=== PATIENT | male | born 1940 | race Asian ===

== ENCOUNTER 2020-07-07 00:04 | Inpatient (IN) | payer MEDICARE, BC ==
[~2020-07-07] VITALS: Ht 167.6 cm; Wt 61.0 kg
[2020-07-07] VITALS (30 sets, daily range): BP systolic 68–145; BP diastolic 37–99
--- NOTE | 2020-07-07 00:10 | NUR ---
ED Nurse Note: Pt brought in by ambulance 60 from [facility] c/o fever of 100.3F and elevated WBC. changed into gown; attached to monitor. patient presents with spontaneous eye opening; lethargic. sinus tach on monitor. respirations shallow and tachypneic; 32 at 97% roomair. rectal temp 103.3F. all safety measures met.
--- NOTE | 2020-07-07 00:15 | NUR ---
ED Nurse Note: pt presents with left subclavian double lumen catheter. bal inserted per ermd. blood, initial lactic, blood culture, urine, covid mrsa cre vre swab collected; sent down to lab. ekg completed at bedside; sinus tach
[2020-07-07] MEDS ORDERED: Acetaminophen 650 MG SUPP RECTAL ONE ×2 (00:25→00:30)
--- NOTE | 2020-07-07 00:29 | Emergency Room Report ---
History of Present Illness General Chief Complaint: Fever Source: EMS, PMD Present Illness HPI Patient sent in for fever. Patient is altered and unable to answer questions. He has a catheter left chest. The patient is unable to give review of systems. Records sent from [facility] reviewed. Discussion with treating MD. H/O T cell lymphoma. Not started on chemo yet. ESRD DM Bladder cancer D/C from [facility] 2 days ago. Allergies: Coded Allergies: LATEX, NATURAL RUBBER (Verified Allergy, Unknown, 07/07/20) MITOMYCIN (Verified Allergy, Unknown, 07/07/20) Uncoded Allergies: MYTOMYCIN (Allergy, Unknown, 07/07/20) COVID-19 Screening Contact w/high risk pt: Yes Experienced COVID-19 symptoms?: Yes COVID-19 Testing performed SUPERVISOR UNLOADING: No Patient History Limited by: medical condition Past Medical History: see triage record, old chart reviewed - SNF papers and PMD Past Surgical History: other - Dialysis fistula right upper arm, chemotherapy catheter left chest Social History: Denies: smoking Social History Narrative [facility] Reviewed Nursing Documentation: PMH: Agreed; PSxH: Agreed Review of Systems All Other Systems: limited Physical Exam Vital Signs Date Time Temp Pulse Resp B/P (MAP) Pulse Ox O2 Delivery O2 Flow Rate FiO2 07/07/20 00:08 100.2 130 22 112/80 (91) 97 Room Air Sp02 EP Interpretation: reviewed, normal General Appearance: moderate distress, lethargic - not answering questions but moving all 4, other - skin hot, Chronically Ill Head: normocephalic, atraumatic Eyes: bilateral eye normal inspection, bilateral eye PERRL ENT: dry mucus membranes Neck: full range of motion, supple Respiratory: no respiratory distress, no retraction, crackles, rhonchi Cardiovascular #1: no edema, tachycardia, other Cardiovascular #2: 2+ radial (L) Gastrointestinal: non-distended, no rebound, guarding - minimal, tenderness - minimal reaction to exam, decreased bowel sounds, scaphoid Musculoskeletal: back normal, moves extm spontaneously Neurologic: DTRs symmetric, sensory intact, other - not answering Psychiatric: depressed affect Skin: no rash, other - febrile Procedures Critical Care Time Critical Care Time Total Critical Care Time: 60 min bedside evaluation and treatment excludes procedures (EKG). Reason for critical care: sepsis, leukopenia, NSTEMI, anemia, thrombocytopenia Possible complications: hypotension, hypertension, SC, shock, arrhythmias, metabolic acidosis, end organ damage, respiratory failure. Interventions: Sepsis resuscitation, broadened antibiotic coverage, reevaluation, discussion with lab, treatment of elevated troponin Course: Patient presents with fever and tachycardia. Sepsis resuscitation begun. In the face of renal failure judicious fluid replacement ordered. Broad-spectrum antibiotics ordered with identification of pulmonary source. Discussion with lab as CBC markedly abnormal. Type and Rh ordered. Repeat evaluation with hypotension which is mild. Repeat fluid bolus ordered. Repeat evaluation. Improvement in blood pressure and pulse. Discussion with admitting physician. Rediscussion with covering physician. Vital signs improved however patient prognosis poor due to comorbidities and bone marrow failure. Consultations: nursing staff, EMS, lab, PMD, admitting MDs, nursing supervisor unloading for reverse isolation Performed by: Dr. Ruiz Tolerated well condition = critical Medical Decision Making Diagnostic Impression: Primary Impression: Sepsis Qualified Codes: A41.9 - Sepsis, unspecified organism Additional Impressions: Leukopenia Qualified Codes: D72.819 - Decreased white blood cell count, unspecified Thrombocytopenia Anemia Qualified Codes: D64.9 - Anemia, unspecified Pneumonia Qualified Codes: J18.9 - Pneumonia, unspecified organism NSTEMI (non-ST elevated myocardial infarction) ESRD (end stage renal disease) on dialysis COVID-19 ruled out by laboratory testing Bilateral pleural effusion ER Course Patient presents with fever. Differential includes sepsis, pneumonia, COVID-19, UTI amongst others. Evaluation with EKG, chest x-ray and labs. Treatment with IV bolus and triple antibiotics ordered. Based on exam sounds like pulmonary source. Patient placed on a heat and frost insulator. As renal failure and BP good (though tachycardia), only 1 liter bolus to begin. EKG ST with strain incomplete RBBB. CXR infiltrate and possible effusions. Line present L. Discussion with lab regarding CBC (they had request redraw twice). I told them to result. WBC 100. Hgb 7.5. Plts = 32K. CMP with CRF. Lactate 1.7. + troponin called at 1:05. Aspirin ordered. This was done in the face of thrombocytopenia as possible cardiac protection outweighs risk of bleeding. Sepsis re-evaluation: Transient lower BP (96). Still tachycardic, but improved (122). Good cap fill. No resp distress and O2 sat good. Still not speaking but moving all 4. Add liter bolus (now 30 ml/kg). After bolus continuing 200 ml/hr. Tachycardia resolved and BP stable after fluids and antibiotics. Defervescing. Needs reverse isolation. Type and Rh ordered. Consideration if continued hypotension for transfusion and possibly platelet transfusion. Discussed with PMD who requests Dr. Coley. Discussed with Dr. Coley who states he is not medical authorization specialist but he will contact Dr. Mcclain. Discussed with Dr. Mcclain 6:20. (Patient on floor.) Laboratory Tests Test 07/07/20 00:15 07/07/20 00:30 07/07/20 01:15 Urine Color Pale yellow Urine Appearance Clear Urine pH 8 (4.5-8.0) Urine Specific [place] 1.010 (1.005-1.035) Urine Protein 3+ (NEGATIVE) H Urine Glucose (UA) 2+ (NEGATIVE) H Urine Ketones Negative (NEGATIVE) Urine Blood 1+ (NEGATIVE) H Urine Nitrite Negative (NEGATIVE) Urine Bilirubin Negative (NEGATIVE) Urine Urobilinogen Normal MG/DL (0.0-1.0) Urine Leukocyte Esterase Negative (NEGATIVE) Urine RBC 0-2 /HPF (0 - 0) H Urine WBC 0-2 /HPF (0 - 0) Urine Squamous Epithelial Cells Occasional /LPF Urine Bacteria Occasional /HPF (NONE) Urine Other Casts 0-2 /LPF (NONE) H Prothrombin Time 12.9 SEC (9.30-11.50) H Prothrombin Time INR 1.2 (0.9-1.1) H Activated Partial Thromboplast Time 35 SEC (23-33) H Sodium Level 135 MMOL/L (136-145) L Potassium Level 5.3 MMOL/L (3.5-5.1) H Chloride Level 98 MMOL/L (98-107) Carbon Dioxide Level 25 MMOL/L (21-32) Anion Gap 12 mmol/L (5-15) Blood Urea Nitrogen 103 mg/dL (7-18) H Creatinine 7.3 MG/DL (0.55-1.30) H Estimated Glomerular Filtration Rate 7.2 mL/min (>60) Glucose Level 81 MG/DL (74-106) Lactic Acid Level 1.70 mmol/L (0.4-2.0) Calcium Level 9.0 MG/DL (8.5-10.1) Magnesium Level 1.7 MG/DL (1.8-2.4) L Total Bilirubin 0.5 MG/DL (0.2-1.0) Aspartate Amino Transferase (AST) 27 U/L (15-37) Alanine Aminotransferase (ALT) 18 U/L (12-78) Alkaline Phosphatase 88 U/L (46-116) Total Creatine Kinase 12 U/L (26-308) L Troponin I 0.082 ng/mL (0.000-0.056) Pro-B-Type Natriuretic Peptide 76930 pg/mL (0-125) H Total Protein 5.4 G/DL (6.4-8.2) L Albumin 1.6 G/DL (3.4-5.0) L Globulin 3.8 g/dL Albumin/Globulin Ratio 0.4 (1.0-2.7) L Lipase 47 U/L (73-393) L White Blood Count 0.1 K/UL (4.8-10.8) *L Red Blood Count 2.95 M/UL (4.70-6.10) L Hemoglobin 7.5 G/DL (14.2-18.0) L Hematocrit 22.5 % (42.0-52.0) L Mean Corpuscular Volume 76 FL (80-99) L Mean Corpuscular Hemoglobin 25.4 PG (27.0-31.0) L Mean Corpuscular Hemoglobin Concent 33.3 G/DL (32.0-36.0) Red Cell Distribution Width 16.4 % (11.6-14.8) H Platelet Count 32 K/UL (150-450) L Mean Platelet Volume 10.7 FL (6.5-10.1) H Neutrophils (%) (Auto) % (45.0-75.0) Lymphocytes (%) (Auto) % (20.0-45.0) Monocytes (%) (Auto) % (1.0-10.0) Eosinophils (%) (Auto) % (0.0-3.0) Basophils (%) (Auto) % (0.0-2.0) CBC Comment See comment Microbiology Date/Time Source Procedure Growth Status 07/07/20 00:15 Nasopharynx SARS-CoV-2 RdRp Gene Assay - Final Complete EKG Diagnostic Results Rate: tachycardiac Rhythm: NSR ST Segments: no acute changes - incomplete RBBB, no STEMI Rhythm Strip Diag. Results Rhythm: no PVC's, no ectopy, other - Tachycardia 134 Chest X-Ray Diagnostic Results Chest X-Ray Diagnostic Results : Chest X-Ray Ordered: Yes # of Views/Limited/Complete: 1 View Indication: Other EP Interpretation: Yes Interpretation: no pneumothorax, other - L infiltrate, effusions, Line L, cardiomegally Impression: Other Electronically Signed by: Electronically signed by Andrea Ruiz MD Last Vital Signs Date Time Temp Pulse Resp B/P (MAP) Pulse Ox O2 Delivery O2 Flow Rate FiO2 07/07/20 02:47 98.7 117 30 127/46 95 Room Air Status: improved Disposition: ADMITTED INPATIENT - reverse isolation Condition: Critical Andrea Ruiz MD Jul 07, 2020 00:29
[2020-07-07] MEDS ORDERED: cefTRIAXone 1 GM in NS 55 ML IVPB ONE (00:30)
[2020-07-07] MEDS ORDERED: Vancomycin 1 GM in NS 275 ML IVPB ONE (00:30)
[2020-07-07] MEDS ORDERED: Azithromycin 500 MG in NS 275 ML IV ONE (00:30)
[2020-07-07 00:39] LABS: APPEARANCE,URINE CLEAR; BILIRUBIN, URINE NEGATIVE (NEGATIVE); COLOR,URINE PALE YELLOW; GLUCOSE, URINE (UA) 2+ (NEGATIVE); KETONES,URINE NEGATIVE (NEGATIVE); LEUKOCYTE ESTERASE ,URINE NEGATIVE (NEGATIVE); NITRITE,URINE NEGATIVE (NEGATIVE); PH,URINE 8 (4.5-8.0); PROTEIN,URINE 3+ (NEGATIVE); UROBILINOGEN,URINE NORMAL MG/DL (0.0-1.0)
[2020-07-07 00:51] LABS: ANION GAP 12 mmol/L (5-15); BLOOD UREA NITROGEN 103 mg/dL (7-18); CARBON DIOXIDE 25 MMOL/L (21-32); CHLORIDE 98 MMOL/L (98-107); CREATININE 7.3 MG/DL (0.55-1.30); POTASSIUM 5.3 MMOL/L (3.5-5.1); SODIUM 135 MMOL/L (136-145)
[2020-07-07 01:01] LABS: ALANINE AMINOTRANSFERASE 18 U/L (12-78); ALBUMIN 1.6 G/DL (3.4-5.0); ALBUMIN/GLOBULIN RATIO 0.4 (1.0-2.7); ALKALINE PHOSPHATASE 88 U/L (46-116); ASPARTATE AMINO TRANSFERASE 27 U/L (15-37); BILIRUBIN,TOTAL 0.5 MG/DL (0.2-1.0); CREATINE KINASE 12 U/L (26-308)
[2020-07-07 01:15] LABS: INR 1.2 (0.9-1.1)
--- NOTE | 2020-07-07 01:15 | NUR ---
ED Nurse Note: repeat cbc drawn; sent down to lab.
[2020-07-07 01:31] LABS: HEMATOCRIT 22.5 % (42.0-52.0); HEMOGLOBIN 7.5 G/DL (14.2-18.0); MEAN CORPUSCULAR VOLUME 76 FL (80-99); PLATELET COUNT 32 K/UL (150-450); RED BLOOD COUNT 2.95 M/UL (4.70-6.10); RED CELL DISTRIBUTION WIDTH 16.4 % (11.6-14.8)
[2020-07-07 01:35] LABS: WHITE BLOOD COUNT 0.1 K/UL (4.8-10.8)
[2020-07-07] MEDS ORDERED: Sodium Chloride 1,900 ML IVLG ONE (02:00)
[2020-07-07] MEDS ORDERED: ACYCLOVIR200 MG ORAL (02:45)
[2020-07-07] MEDS ORDERED: ALLOPURINOL100 M1 ORAL (02:49)
[2020-07-07] MEDS ORDERED: ASPIRIN81 MG ORAL (02:49)
[2020-07-07] MEDS ORDERED: AMLODIPINE BESYL5 MG ORAL (02:49)
[2020-07-07] MEDS ORDERED: MULTIVITAMIN-Z1 EACH PO (02:51)
[2020-07-07] MEDS ORDERED: CALCIUM ACETAT667 M1 PO (02:51)
[2020-07-07] MEDS ORDERED: PROCRIT3000 UNIT/ SUBQ (02:54)
[2020-07-07] MEDS ORDERED: GABAPENTIN100 MG ORAL (02:54)
[2020-07-07] MEDS ORDERED: [UNRECOGNIZED DRUG - OTHER] PO (02:54)
[2020-07-07] MEDS ORDERED: LOSARTAN POTASS50 MG ORAL (02:54)
[2020-07-07] MEDS ORDERED: LIDODERM700 M1 TOPIC (02:54)
[2020-07-07] MEDS ORDERED: NEUPOGEN300 MCG/1 SQ (02:57)
[2020-07-07] MEDS ORDERED: MIRTAZAPINE15 M3 ORAL (02:57)
[2020-07-07] MEDS ORDERED: COLACE100 MG ORAL (03:00)
[2020-07-07] MEDS ORDERED: SENNA8.6 M2 PO (03:00)
[2020-07-07] MEDS ORDERED: ACETAMINOPHEN325 M1 ORAL (03:02)
[2020-07-07] MEDS ORDERED: ROBAXIN-500MG ORAL (03:02)
[2020-07-07] MEDS ORDERED: MELATONIN3 MG ORAL (03:02)
[2020-07-07] MEDS ORDERED: POLYETHYLENE GL17 GM ORAL (03:03)
--- NOTE | 2020-07-07 03:40 | NUR ---
TRANSFER TO FLOOR: Patient transferred to tele 219 as ordered, per radha sweet. Report given to eze reece. patient stable for transport. transferred to unit via gurney with rn and rigoberto. belongings list and admission packet sent with patient.
--- NOTE | 2020-07-07 04:00 | NUR ---
NURSE NOTES: Received report from Torin Alfonso RN. Pt not in stable condition, MD called, awaiting call back
--- NOTE | 2020-07-07 06:00 | NUR ---
TRANSFER TO FLOOR: Patient transferred to ICU, per ANIYAH. Report given to Silvina Navarro RN. No Belongings or medications. Pt in critical condition.
[2020-07-07] MEDS ORDERED: Acetaminophen 500mg (ES) tab ORAL PRN (07:00)
[2020-07-07] MEDS ORDERED: Sennosides 8.6mg tab ORAL PRN (07:00)
[2020-07-07] MEDS ORDERED: oxyCODONE 5mg IR tab ORAL PRN (07:00)
[2020-07-07] MEDS ORDERED: NS 250 ML IVPB ONE (07:45)
[2020-07-07] MEDS ORDERED: Piperacillin/Tazobactam 3.375 GM in NS 110 ML IVPB SCH (09:00)
[2020-07-07] MEDS ORDERED: TBO-Filgrastim 300 mcg/0.5ml SQ SCH (09:00)
[2020-07-07] MEDS: Allopurinol 100mg Tab ORAL SCH (09:00)
[2020-07-07] MEDS: Acyclovir 200mg Cap ORAL SCH (09:00)
[2020-07-07] MEDS: Vitamin B Complex Tab ORAL SCH (09:00)
[2020-07-07] MEDS ORDERED: Aspirin EC 81mg tab ORAL SCH (09:00)
[2020-07-07] MEDS: Norepinephrine 4mg/NS Premix 250 ML IV SCH ×3 (09:30→22:34)
--- NOTE | 2020-07-07 09:30 | NUR ---
NURSE NOTES: late entry: palliative senior np cheryl here to see pt.informed of wbc 0.1L, plt 32. on r.a sating 93%. sbp low, 270ml bolus given. pt iv access subclavian. ok to use for now order. may need replacement. lungs diminished. loc x0, pt moans, will not open eyes. jaundiced. will administer granix subcut.
--- NOTE | 2020-07-07 09:50 | NUR ---
NURSE NOTES: LATE ENTRY: CALLED MD. MURRAY. REGARDING PT SBP POST 270ML BOLUS REMAINS AT 85/37, INCREASED FROM 53, HR 103-115. SATING 94%, BPM 20-23. PT VERY LETHARGIC, WILL NOT OPEN EYES, NO PO MEDS CAN BE GIVEN. RECOMMENDED PRESSORS, LABS, NGT, FLUIDS. RECEIVED ORDER FOR LEVOPHED, NGT INSERTION, STAT ABG. REPEAT BMP, CBC, LACTIC ACID.
--- NOTE | 2020-07-07 10:11 | History and Physical ---
Minor Giovanna BUTCHER SUPERVISOR 07/07/20 1011: History of Present Illness General Date patient seen: Jul 07, 2020 Time patient seen: 08:00 Reason for Hospitalization: Fever Present Illness HPI 80 years old male, resident of [facility], with PMH of ESRD, on HD, DM type 2, HTN, CHF with diastolic dysfunction hyperlipidemia , moderate aortic stenosis, recurrent left pleural effsuion, bladder cancer, T cell lymphoma, recently diagnosed, not on chemo yet , was sent for to ED for evaluation due to fever. Upon evaluation in ED patient was febrile , tachycardic, pulse oximetry was stable on room air Laboratory work-up revealed severe pancytopenia with WBC 0.1 , hemoglobin 7.5, platelet counts 32 . ABG on room air revealed hypoxia with O2 sat 88 % pH was 7.40, pCO2 31.8. Sodium 135 , potassium 5.3. Magnesium 1.7. BUN 102, creatinine 7.3, consistent with known history of ESRD. Rapid COVID 19 was negative. Urinalysis revealed no evidence of urinary tract infection. Troponin 0.082 , pro BNP [id number]. EKG revealed sinus tachycardia with incomplete right bundle branch block, no acute ischemic changes . Chest x-ray revealed left infiltrate, possible effusion, In emergency department septic work-up initiated ,patient pancultured ,received fluid bolus, empiric antibiotics adn ASA. Patient noted to be hypotensive and subsequently transferred to ICU for further management for possible pressor Allergies: Coded Allergies: LATEX, NATURAL RUBBER (Verified Allergy, Unknown, 07/07/20) MITOMYCIN (Verified Allergy, Unknown, 07/07/20) Uncoded Allergies: MYTOMYCIN (Allergy, Unknown, 07/07/20) COVID-19 Screening Contact w/high risk pt: Yes Experienced COVID-19 symptoms?: Yes Coronavirus symptoms experienc: Fever (T>100.4F or >38C) Medication History Scheduled Acyclovir* (Acyclovir*), 200 MG ORAL 3XW, (Reported) Allopurinol* (Allopurinol*), 100 MG ORAL DAILY, (Reported) Amlodipine Besylate* (Amlodipine Besylate*), 5 MG ORAL DAILY, (Reported) Aspirin* (Aspirin*), 81 MG ORAL DAILY, (Reported) Calcium Acetate (Calcium Acetate), 667 MG PO TID, (Reported) Docusate Sodium* (Colace*), 100 MG ORAL TWICE A DAY, (Reported) Epoetin Emery (Procrit), 3,000 UNIT SUBQ 3XW, (Reported) Gabapentin* (Gabapentin*), 100 MG ORAL THREE TIMES A DAY, (Reported) Lidocaine Patch* (Lidoderm Patch*), 1 PATCH TOPIC DAILY, (Reported) Losartan Potassium* (Losartan Potassium*), 100 MG ORAL DAILY, (Reported) Mirtazapine* (Mirtazapine*), 15 MG ORAL BEDTIME, (Reported) Nut.tx,Imp.digest,Soy,Lact-Red (Pronourish), 237 ML PO BID, (Reported) Polyethylene Glycol 3350* (Polyethylene Glycol 3350*), 17 GM ORAL DAILY, (Reported) Scheduled PRN Acetaminophen* (Acetaminophen 325MG Tablet*), 500 MG ORAL Q4H PRN for For Pain, (Reported) Melatonin (Melatonin), 3 MG ORAL BEDTIME PRN for Insomnia, (Reported) Methocarbamol* (Robaxin-500*), 500 MG ORAL QID PRN for For Pain, (Reported) Miscellaneous Medications B Complx/C/Folic/Zinc/Cup Manning/E (Zvrilljznlbn-Ehwq-Whosaf Tab), 1 EACH PO, (Reported) Filgrastim (Neupogen), 300 MCG IJ, (Reported) Sennosides (Senna), 8.6 MG PO, (Reported) Patient History Healthcare decision maker Resuscitation status Full code Advanced Directive on File Review of Systems ROS Narrative unable to obtain due to patient's mental status Physical Exam General Appearance: no apparent distress, lethargic Lines, tubes and drains: other - R chest dial catheter HEENT: normocephalic, atraumatic, anicteric Neck: non-tender, supple Respiratory/Chest: no accessory muscle use, decreased breath sounds Cardiovascular/Chest: tachycardia - ST with BBB Abdomen: normal bowel sounds, non tender, soft Extremities: normal capillary refill Neurologic: abnormal gait, other - lethargic moves all extremities Musculoskeletal: atrophy - BLE Last 24 Hour Vital Signs Date Time Temp Pulse Resp B/P (MAP) Pulse Ox O2 Delivery O2 Flow Rate FiO2 07/07/20 04:00 150 07/07/20 03:40 98.7 112 25 105/41 97 Room Air 07/07/20 03:30 98.7 112 25 105/41 97 Room Air 07/07/20 02:47 98.7 117 30 127/46 95 Room Air 07/07/20 02:00 98.7 130 32 127/99 94 Room Air 07/07/20 01:23 98.7 07/07/20 01:00 103.3 128 27 145/70 98 Room Air 07/07/20 00:15 130 22 Room Air 07/07/20 00:15 103.3 135 26 96/52 98 Room Air 07/07/20 00:08 100.2 130 22 112/80 (91) 97 Room Air Laboratory Tests Test 07/07/20 00:15 07/07/20 00:30 07/07/20 01:15 07/07/20 09:31 Urine Color Pale yellow Urine Appearance Clear Urine pH 8 (4.5-8.0) Urine Specific [place] 1.010 (1.005-1.035) Urine Protein 3+ (NEGATIVE) H Urine Glucose (UA) 2+ (NEGATIVE) H Urine Ketones Negative (NEGATIVE) Urine Blood 1+ (NEGATIVE) H Urine Nitrite Negative (NEGATIVE) Urine Bilirubin Negative (NEGATIVE) Urine Urobilinogen Normal MG/DL (0.0-1.0) Urine Leukocyte Esterase Negative (NEGATIVE) Urine RBC 0-2 /HPF (0 - 0) H Urine WBC 0-2 /HPF (0 - 0) Urine Squamous Epithelial Cells Occasional /LPF Urine Bacteria Occasional /HPF (NONE) Urine Other Casts 0-2 /LPF (NONE) H Prothrombin Time 12.9 SEC (9.30-11.50) H Prothromb Time International Ratio 1.2 (0.9-1.1) H Activated Partial Thromboplast Time 35 SEC (23-33) H Sodium Level 135 MMOL/L (136-145) L Potassium Level 5.3 MMOL/L (3.5-5.1) H Chloride Level 98 MMOL/L (98-107) Carbon Dioxide Level 25 MMOL/L (21-32) Anion Gap 12 mmol/L (5-15) Blood Urea Nitrogen 103 mg/dL (7-18) H Creatinine 7.3 MG/DL (0.55-1.30) H Estimat Glomerular Filtration Rate 7.2 mL/min (>60) Glucose Level 81 MG/DL (74-106) Lactic Acid Level 1.70 mmol/L (0.4-2.0) Calcium Level 9.0 MG/DL (8.5-10.1) Magnesium Level 1.7 MG/DL (1.8-2.4) L Total Bilirubin 0.5 MG/DL (0.2-1.0) Aspartate Amino Transf (AST/SGOT) 27 U/L (15-37) Alanine Aminotransferase (ALT/SGPT) 18 U/L (12-78) Alkaline Phosphatase 88 U/L (46-116) Total Creatine Kinase 12 U/L (26-308) L Troponin I 0.082 ng/mL (0.000-0.056) Pro-B-Type Natriuretic Peptide 51092 pg/mL (0-125) H Total Protein 5.4 G/DL (6.4-8.2) L Albumin 1.6 G/DL (3.4-5.0) L Globulin 3.8 g/dL Albumin/Globulin Ratio 0.4 (1.0-2.7) L Lipase 47 U/L (73-393) L White Blood Count 0.1 K/UL (4.8-10.8) *L Red Blood Count 2.95 M/UL (4.70-6.10) L Hemoglobin 7.5 G/DL (14.2-18.0) L Hematocrit 22.5 % (42.0-52.0) L Mean Corpuscular Volume 76 FL (80-99) L Mean Corpuscular Hemoglobin 25.4 PG (27.0-31.0) L Mean Corpuscular Hemoglobin Concent 33.3 G/DL (32.0-36.0) Red Cell Distribution Width 16.4 % (11.6-14.8) H Platelet Count 32 K/UL (150-450) L Mean Platelet Volume 10.7 FL (6.5-10.1) H Neutrophils (%) (Auto) % (45.0-75.0) Lymphocytes (%) (Auto) % (20.0-45.0) Monocytes (%) (Auto) % (1.0-10.0) Eosinophils (%) (Auto) % (0.0-3.0) Basophils (%) (Auto) % (0.0-2.0) CBC Comment See comment Arterial Blood pH 7.402 (7.350-7.450) Arterial Blood Partial Pressure CO2 31.8 mmHg (35.0-45.0) L Arterial Blood Partial Pressure O2 58.4 mmHg (75.0-100.0) L Arterial Blood HCO3 19.3 mmol/L (22.0-26.0) L Arterial Blood Oxygen Saturation 88.7 % (95-100) *L Arterial Blood Base Excess -4.9 (-2-2) L Javier Test Positive Microbiology Date/Time Source Procedure Growth Status 07/07/20 00:15 Nasopharynx SARS-CoV-2 RdRp Gene Assay - Final Complete Height (Feet): 5 Height (Inches): 6.00 Weight (Pounds): 140 Medications Current Medications Medications (Trade) Dose Ordered Sig/Maxi Route PRN Reason Start Time Stop Time Status Last Admin Dose Admin Acetaminophen (Tylenol) 500 mg Q4H PRN ORAL Mild Pain (1-3)/ Temp 100.4 07/07/20 07:00 08/06/20 06:59 Acyclovir (Zovirax) 200 mg TuThSa ORAL 07/07/20 09:00 08/06/20 08:59 Allopurinol (Zyloprim) 100 mg DAILY ORAL 07/07/20 09:00 08/06/20 08:59 Aspirin (Ecotrin) 81 mg DAILY ORAL 07/07/20 09:00 08/21/20 08:59 Atorvastatin Calcium (Lipitor) 10 mg BEDTIME ORAL 07/07/20 21:00 10/05/20 20:59 Calcium Acetate (Phoslo) 1,334 mg TIAC ORAL 07/07/20 11:30 10/05/20 11:29 Epoetin Emery (Epoetin Emery(ESRD on dialysis)) 6,000 unit THU-THU-THU SUBQ 07/09/20 21:00 10/07/20 20:59 Gabapentin (Neurontin) 100 mg QHS ORAL 07/07/20 21:00 08/06/20 20:59 Lidocaine (Lidoderm 5% PATCH) 1 patch DAILY TDERMAL 07/07/20 09:00 10/05/20 08:59 Mirtazapine (Remeron) 15 mg BEDTIME ORAL 07/07/20 21:00 10/05/20 20:59 Norepinephrine Bitartrate 250 ml @ 0 mls/hr Q24H IV 07/07/20 09:30 07/10/20 09:24 Oxycodone HCl (Roxicodone) 5 mg Q12H PRN ORAL pain (8-10) 07/07/20 07:00 07/14/20 06:59 Pantoprazole (Protonix) 40 mg EVERY 12 HOURS ORAL 07/07/20 09:00 08/06/20 08:59 Piperacillin Sod/ Tazobactam Sod 3.375 gm/Sodium Chloride 110 ml @ 27.5 mls/hr Q12HR IVPB 07/07/20 09:00 07/14/20 08:59 07/07/20 09:01 Sennosides (Senokot) 8.6 mg DAILY PRN ORAL Constipation 07/07/20 07:00 08/06/20 06:59 Tbo-Filgrastim (Granix) 300 mcg ONCE SQ 07/07/20 09:00 07/07/20 12:00 07/07/20 08:45 Vancomycin HCl (Vanco pharmacy to dose) 1 ea DAILY PRN MISC Per rx protocol 07/07/20 07:00 08/06/20 06:59 Vitamin B Complex (Vitamin B Complex) 1 tab DAILY ORAL 07/07/20 09:00 10/05/20 08:59 Assessment/Plan Assessment/Plan: ASSESSMENT sepsis with shock PNA Neutropenic fever Acute toxic metabolic encephalopathy Elevated troponin Severe pancytopenia T cell lymphoma ESRD, on HD DM Hx of HTN Recurrent left pleural effusion Diastolic CHF Moderate aortic stenosis HLD PLAN OF CARE ICU closely monitor hemodynamic status, attempt BP control with fluid boluses Levophed on standby to start to keep mean arterial BP> 65 no peripheral line, will use HD cath and surgeon contacted to place a CL broad spectrum abx, fup with cx ID consult pending serial troponin, ECG cardio eval O2 titrate to keep sat above 92% fup with CXR Neupogen stat monitor counts, heme eval HD as per nephro with close monitoring of volumes and renal parameters Venous Duplex BLE SCD if NGT plan to transfer to [facility] for a higher level of care when stable for transfer case discussed and evaluated by supervising physician Dannie Mcclain MD 07/07/20 1349: History of Present Illness General Reason for Hospitalization: Fever Present Illness Allergies: Coded Allergies: LATEX, NATURAL RUBBER (Verified Allergy, Unknown, 07/07/20) MITOMYCIN (Verified Allergy, Unknown, 07/07/20) Uncoded Allergies: MYTOMYCIN (Allergy, Unknown, 07/07/20) Medication History Scheduled Acyclovir* (Acyclovir*), 200 MG ORAL 3XW, (Reported) Allopurinol* (Allopurinol*), 100 MG ORAL DAILY, (Reported) Amlodipine Besylate* (Amlodipine Besylate*), 5 MG ORAL DAILY, (Reported) Aspirin* (Aspirin*), 81 MG ORAL DAILY, (Reported) Calcium Acetate (Calcium Acetate), 667 MG PO TID, (Reported) Docusate Sodium* (Colace*), 100 MG ORAL TWICE A DAY, (Reported) Epoetin Emery (Procrit), 3,000 UNIT SUBQ 3XW, (Reported) Gabapentin* (Gabapentin*), 100 MG ORAL THREE TIMES A DAY, (Reported) Lidocaine Patch* (Lidoderm Patch*), 1 PATCH TOPIC DAILY, (Reported) Losartan Potassium* (Losartan Potassium*), 100 MG ORAL DAILY, (Reported) Mirtazapine* (Mirtazapine*), 15 MG ORAL BEDTIME, (Reported) Nut.tx,Imp.digest,Soy,Lact-Red (Pronourish), 237 ML PO BID, (Reported) Polyethylene Glycol 3350* (Polyethylene Glycol 3350*), 17 GM ORAL DAILY, (Reported) Scheduled PRN Acetaminophen* (Acetaminophen 325MG Tablet*), 500 MG ORAL Q4H PRN for For Pain, (Reported) Melatonin (Melatonin), 3 MG ORAL BEDTIME PRN for Insomnia, (Reported) Methocarbamol* (Robaxin-500*), 500 MG ORAL QID PRN for For Pain, (Reported) Miscellaneous Medications B Complx/C/Folic/Zinc/Cup Manning/E (Deezwkjjgxzk-Fyha-Unfvsd Tab), 1 EACH PO, (Reported) Filgrastim (Neupogen), 300 MCG IJ, (Reported) Sennosides (Senna), 8.6 MG PO, (Reported) Assessment/Plan Assessment/Plan: Patient seen and examined with BUTCHER SUPERVISOR and the above formulated assessment and plan. Briefly, this is an 80 y/o male w/ ESRD on HD, bladder CA s/p BCG, DM2, HTN, HL, latent TB, recurrent pleural effusions with recent diagnosis of T cell lymphoma with recent hospitalization for left loculated effusion c/b left hemothorax s/p VATS decortication. Underwent [facility] 06/29 and discharged to SNF from [facility] 07/05. Plan was to continue Filgastrim to 07/07 but will continue for now until Heme/ onc f/u He is on pressors in the ICU with gentle fluid additionally HD planned per renal PRBC and platelet transfusion BS normally well controlled, monitor He is very altered Will look into transfer to [facility] where he gets his care. CC time 100 min Giovanna Minor NP Jul 07, 2020 10:11 Dannie Mcclain MD Jul 07, 2020 13:49
--- NOTE | 2020-07-07 10:15 | NUR ---
NURSE NOTES: MD. MONTOYA HERE TO SEE PT. WAS INFORMED FISTULA ON RT UPPER ARM, FAINT THRILL, BRUIT PRESENT. PT ADMITTED WITH LT SUBCLAVIAN, ORDER TO USE FOR NOW. K 5.3, BUN/CRE 103/7.3.MG 1.7. PT RECEIVED BOLUS N.S, LEVO ON STANDBY, SBP NOW 140'S, HR 122. MD WILL PLACE ORDER FOR H.D TODAY.
--- NOTE | 2020-07-07 10:23 | Consultation ---
Consult Note Consult Note I am asked to evaluate the patient at the request of Dr. Mcclain for dialysis management Patient seen in room B ICU Discussed with ANKUSH Fonseca Patient transferred to ICU because of low blood pressure Discussed with nurse practitioner Giovanna Minor Old record at [facility] reviewed 80 years old male, resident of [facility], with PMH of ESRD, on HD, DM type 2, HTN, hyperlipidemia thyroid disease , moderate AV stenosis, left renal ang iomyolipoma, T cell lymphoma, recently diagnosed, not on chemo yet , respiratory failure due to pleural effusion and left hemothorax, was sent for to ED for evaluation due to fever. Upon evaluation in ED patient was febrile , tachycardic, pulse oximetry was stable on room air Laboratory work-up revealed severe pancytopenia with WBC 0.1 , hemoglobin 7.5, platelet counts 32 . ABG on room air revealed hypoxia with O2 sat 88 % pH was 7.40, pCO2 31.8. Sodium 135 , potassium 5.3. Magnesium 1.7. BUN 102, creatinine 7.3, consistent with known history of ESRD. Rapid COVID 19 was negative. Urinalysis revealed no evidence of urinary tract infection. Troponin 0.082 , pro BNP [id number]. EKG revealed sinus tachycardia with incomplete right bundle branch block, no acute ischemic changes . Chest x-ray revealed left infiltrate, possible effusion, In emergency department septic work-up initiated ,patient pancultured ,received fluid bolus, empiric antibiotics adn ASA. Patient noted to be hypotensive and subsequently transferred to ICU for further management for possible pressor Allergies: Coded Allergies: LATEX, NATURAL RUBBER (Verified Allergy, Unknown, 07/07/20) MITOMYCIN (Verified Allergy, Unknown, 07/07/20) Uncoded Allergies: MYTOMYCIN (Allergy, Unknown, 07/07/20) COVID-19 Screening Contact w/high risk pt: Yes Experienced COVID-19 symptoms?: Yes Coronavirus symptoms experienc: Fever (T>100.4F or >38C) Patient examined Patient has a dialysis fistula over the right arm Patient has a line in left upper chest for chemo treatment General Appearance: no apparent distress, lethargic Lines, tubes and drains: other - R chest catheter HEENT: normocephalic, atraumatic, anicteric Neck: non-tender, supple Respiratory/Chest: no accessory muscle use, decreased breath sounds Cardiovascular/Chest: tachycardia - ST with BBB Abdomen: normal bowel sounds, non tender, soft Extremities: normal capillary refill Neurologic: abnormal gait, other - lethargic moves all extremities Musculoskeletal: atrophy - BLE . Assessment/Plan Imp: End-stage renal disease on hemodialysis Thursday and Saturdays Presents with hypotension, sepsis, pancytopenia Has evidence of pneumonia Non-ST elevation DC History of lymphoma and recurrent left pleural effusion LVH diastolic CHF moderate aortic stenosis and hypertension Secondary hyperparathyroidism hypocalcemia Nfk-gqeijoc-eckirkdam diabetes mellitus Hyperlipemia History of recurrent bladder cancer Protein calorie malnutrition Hyperuricemia Plan: Dialysis to correct electrolyte abnormalities and uremic symptoms Hem Onc, ID, pulmonary follow-up Monitor renal parameters, electrolytes, uric acid Monitor blood sugar while n.p.o. Per orders I spent an additional 36 minutes on review of medical records of the patient at [facility] EMR , including prior hospital records,consult notes, progress notes, procedures ,imaging labs, hemodynamics, and other clinical documentation. Over 35 min Rome Jiang MD Jul 07, 2020 10:23
--- NOTE | 2020-07-07 10:37 | NUR ---
NURSE NOTES: called DAIJA gordon at [phone], spoke with call rep Carter. order for heidi [id number]. today. will inform heidi mercadon
[2020-07-07 11:35] LABS: HEMATOCRIT 23.7 % (42.0-52.0); HEMOGLOBIN 7.6 G/DL (14.2-18.0); MEAN CORPUSCULAR VOLUME 82 FL (80-99); PLATELET COUNT 15 K/UL (150-450); RED BLOOD COUNT 2.91 M/UL (4.70-6.10); RED CELL DISTRIBUTION WIDTH 19.2 % (11.6-14.8); WHITE BLOOD COUNT 1.1 K/UL (4.8-10.8)
[2020-07-07 11:47] LABS: BLOOD UREA NITROGEN 108 mg/dL (7-18); CALCIUM 7.9 MG/DL (8.5-10.1); CARBON DIOXIDE 22 MMOL/L (21-32); CHLORIDE 103 MMOL/L (98-107); CREATININE 7.8 MG/DL (0.55-1.30); POTASSIUM 5.6 MMOL/L (3.5-5.1); SODIUM 138 MMOL/L (136-145)
--- NOTE | 2020-07-07 12:22 | NUR ---
RD ASSESSMENT & RECOMMENDATIONS SEE CARE ACTIVITY FOR COMPLETE ASSESSMENT DAILY ESTIMATED NEEDS: Needs based on ESRD + HD, CA/ 54.5kg 30-35 kcals/kg 4175-9236 total kcals 1.2-1.8 g protein/kg 65-98 g total protein Fluids per MD NUTRITION DIAGNOSIS: * Swallowing difficulty R/T dysphagia, lethargy as evidenced by w/ an order for NGT insertion, NPO at this time. 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) CURRENT DIET:NPO PO DIET RECOMMENDATIONS: WHEN SAFE FOR ORAL DIET -> RENAL/texture per SOFTWARE DEVELOPMENT ADVISOR ENTERAL NUTRITION RECOMMENDATIONS: W/ hemodynamic stability: Nepro @ 40ml/hr x 24 hrs to provide 960ml, 1728kcal, 78g prot, 698ml free water * FEED W/ HEMODYNAMIC STABILITY -> initiate Nepro @ 10ml/hr x 6hrs, advance 10ml q 4-6 hrs as tolerated to goal rate -> HOB over 30 degrees/ water flush per MD WITHOUT HEMODYNAMIC STABILITY, if able to keep HOB >30 degrees, rec trophic feeding of Nepro @ 5-10ml/hr ADDITIONAL RECOMMENDATIONS: * Per SNF: HT=62" AP=[id number] (06/29/20), daily calibrated bedscale wt * Monitor hemodynamic stability: "Levo on standby" at this time * Monitor lytes (K 5.3), check phos * TF rec as above when medically appropriate to feed and not safe for PO
--- NOTE | 2020-07-07 12:42 | NUR ---
NURSE NOTES: called Md Colindres and left message regarding sudden increase in pt hr to 150's. sbp 117, Levophed held at this time. pt responsive, lethargic baseline. ax temp 99.9, cooling measures in place. bedside ekg obtained vent rate>150. awaiting call back.
--- NOTE | 2020-07-07 13:12 | Consultation ---
History of Present Illness General Date patient seen: Jul 07, 2020 Reason for Hospitalization: Fever Present Illness HPI 80 year old male multiple medical comorbidities including ESRD on HD right arm fistula, bladder ca, lymphoma on chemo left chest wall catheter presented with fevers. admitted for care and management. surgery called to evaluate and assist with care. consideration of removal of chest wall catheter and eval of fistula. in ICU on support. labs noted. awake and responsive but unable to participate in exam or give history. EMR reviewed. case discussed with medical teams. Allergies: Coded Allergies: LATEX, NATURAL RUBBER (Verified Allergy, Unknown, 07/07/20) MITOMYCIN (Verified Allergy, Unknown, 07/07/20) Uncoded Allergies: MYTOMYCIN (Allergy, Unknown, 07/07/20) COVID-19 Screening Contact w/high risk pt: Yes Experienced COVID-19 symptoms?: Yes Coronavirus symptoms experienc: Fever (T>100.4F or >38C) Medication History Scheduled Acyclovir* (Acyclovir*), 200 MG ORAL 3XW, (Reported) Allopurinol* (Allopurinol*), 100 MG ORAL DAILY, (Reported) Amlodipine Besylate* (Amlodipine Besylate*), 5 MG ORAL DAILY, (Reported) Aspirin* (Aspirin*), 81 MG ORAL DAILY, (Reported) Calcium Acetate (Calcium Acetate), 667 MG PO TID, (Reported) Docusate Sodium* (Colace*), 100 MG ORAL TWICE A DAY, (Reported) Epoetin Emery (Procrit), 3,000 UNIT SUBQ 3XW, (Reported) Gabapentin* (Gabapentin*), 100 MG ORAL THREE TIMES A DAY, (Reported) Lidocaine Patch* (Lidoderm Patch*), 1 PATCH TOPIC DAILY, (Reported) Losartan Potassium* (Losartan Potassium*), 100 MG ORAL DAILY, (Reported) Mirtazapine* (Mirtazapine*), 15 MG ORAL BEDTIME, (Reported) Nut.tx,Imp.digest,Soy,Lact-Red (Pronourish), 237 ML PO BID, (Reported) Polyethylene Glycol 3350* (Polyethylene Glycol 3350*), 17 GM ORAL DAILY, (Reported) Scheduled PRN Acetaminophen* (Acetaminophen 325MG Tablet*), 500 MG ORAL Q4H PRN for For Pain, (Reported) Melatonin (Melatonin), 3 MG ORAL BEDTIME PRN for Insomnia, (Reported) Methocarbamol* (Robaxin-500*), 500 MG ORAL QID PRN for For Pain, (Reported) Miscellaneous Medications B Complx/C/Folic/Zinc/Cup Manning/E (Lrcbfnnyixhl-Uuxf-Ywqyll Tab), 1 EACH PO, (Reported) Filgrastim (Neupogen), 300 MCG IJ, (Reported) Sennosides (Senna), 8.6 MG PO, (Reported) Patient History Limited by: medical condition History Provided By: Medical Record, PMD Healthcare decision maker Resuscitation status Advanced Directive on File Past Medical/Surgical History Past Medical/Surgical History: (1) Anemia (2) Leukopenia (3) Thrombocytopenia (4) Sepsis (5) Pneumonia (6) NSTEMI (non-ST elevated myocardial infarction) (7) ESRD (end stage renal disease) on dialysis (8) COVID-19 ruled out by laboratory testing (9) Shock (10) Elevated troponin Review of Systems Review of Symptoms General ROS: no weight loss or fever Psychological ROS: no depression or mood changes, no memory loss Ophthalmic ROS: no visual changes or eye irritation ENT ROS: no nasal congestion, hearing loss, dizziness Allergy and Immunology ROS: no allergic symptoms or urticaria Hematological and Lymphatic ROS: no swollen glands, unusual bleeding or bruising Endocrine ROS: no polyuria, polydipsia, weight changes, temperature intolerance Respiratory ROS: no cough, shortness of breath, or wheezing Cardiovascular ROS: no chest pain or dyspnea on exertion Gastrointestinal ROS: denies abdominal pain, bright red blood in stool. Musculoskeletal ROS: no myalgias or arthralgias Neurological ROS: no TIA or stroke symptoms Dermatological ROS: no new or changing skin lesions, rashes or pruritis limited given medical condition Physical Exam Physical Exam General appearance: alert, no distress, appears stated age Head: Normocephalic, without obvious abnormality, atraumatic Eyes: conjunctivae/corneas clear. PERRL, EOM's intact. Fundi benign Throat: Lips, mucosa, and tongue normal. Teeth and gums normal Neck: supple, symmetrical, trachea midline, no adenopathy, thyroid: not enlarged, symmetric, no tenderness/mass/nodules, no carotid bruit and no JVD Lungs: clear to auscultation bilaterally. left chest wall tunneled dual lumen catheter Heart: regular rate and rhythm, S1, S2 normal, no murmur, click, rub or gallop Abdomen: soft, non-tender. Bowel sounds normal. No masses, no organomegaly Extremities: extremities normal, atraumatic, no cyanosis or edema fistula okay and thrill noted Pulses: 2+ and symmetric Skin: Skin color, texture, turgor normal. No rashes or lesions Neurologic: Grossly normal Last 24 Hour Vital Signs Date Time Temp Pulse Resp B/P (MAP) Pulse Ox O2 Delivery O2 Flow Rate FiO2 07/07/20 04:00 150 07/07/20 03:40 98.7 112 25 105/41 97 Room Air 07/07/20 03:30 98.7 112 25 105/41 97 Room Air 07/07/20 02:47 98.7 117 30 127/46 95 Room Air 07/07/20 02:00 98.7 130 32 127/99 94 Room Air 07/07/20 01:23 98.7 07/07/20 01:00 103.3 128 27 145/70 98 Room Air 07/07/20 00:15 130 22 Room Air 07/07/20 00:15 103.3 135 26 96/52 98 Room Air 07/07/20 00:08 100.2 130 22 112/80 (91) 97 Room Air Laboratory Tests Test 07/07/20 00:15 07/07/20 00:30 07/07/20 01:15 07/07/20 09:31 Urine Color Pale yellow Urine Appearance Clear Urine pH 8 (4.5-8.0) Urine Specific [place] 1.010 (1.005-1.035) Urine Protein 3+ (NEGATIVE) H Urine Glucose (UA) 2+ (NEGATIVE) H Urine Ketones Negative (NEGATIVE) Urine Blood 1+ (NEGATIVE) H Urine Nitrite Negative (NEGATIVE) Urine Bilirubin Negative (NEGATIVE) Urine Urobilinogen Normal MG/DL (0.0-1.0) Urine Leukocyte Esterase Negative (NEGATIVE) Urine RBC 0-2 /HPF (0 - 0) H Urine WBC 0-2 /HPF (0 - 0) Urine Squamous Epithelial Cells Occasional /LPF Urine Bacteria Occasional /HPF (NONE) Urine Other Casts 0-2 /LPF (NONE) H Prothrombin Time 12.9 SEC (9.30-11.50) H Prothromb Time International Ratio 1.2 (0.9-1.1) H Activated Partial Thromboplast Time 35 SEC (23-33) H Sodium Level 135 MMOL/L (136-145) L Potassium Level 5.3 MMOL/L (3.5-5.1) H Chloride Level 98 MMOL/L (98-107) Carbon Dioxide Level 25 MMOL/L (21-32) Anion Gap 12 mmol/L (5-15) Blood Urea Nitrogen 103 mg/dL (7-18) H Creatinine 7.3 MG/DL (0.55-1.30) H Estimat Glomerular Filtration Rate 7.2 mL/min (>60) Glucose Level 81 MG/DL (74-106) Lactic Acid Level 1.70 mmol/L (0.4-2.0) Calcium Level 9.0 MG/DL (8.5-10.1) Magnesium Level 1.7 MG/DL (1.8-2.4) L Total Bilirubin 0.5 MG/DL (0.2-1.0) Aspartate Amino Transf (AST/SGOT) 27 U/L (15-37) Alanine Aminotransferase (ALT/SGPT) 18 U/L (12-78) Alkaline Phosphatase 88 U/L (46-116) Total Creatine Kinase 12 U/L (26-308) L Troponin I 0.082 ng/mL (0.000-0.056) Pro-B-Type Natriuretic Peptide 20874 pg/mL (0-125) H Total Protein 5.4 G/DL (6.4-8.2) L Albumin 1.6 G/DL (3.4-5.0) L Globulin 3.8 g/dL Albumin/Globulin Ratio 0.4 (1.0-2.7) L Lipase 47 U/L (73-393) L White Blood Count 0.1 K/UL (4.8-10.8) *L Red Blood Count 2.95 M/UL (4.70-6.10) L Hemoglobin 7.5 G/DL (14.2-18.0) L Hematocrit 22.5 % (42.0-52.0) L Mean Corpuscular Volume 76 FL (80-99) L Mean Corpuscular Hemoglobin 25.4 PG (27.0-31.0) L Mean Corpuscular Hemoglobin Concent 33.3 G/DL (32.0-36.0) Red Cell Distribution Width 16.4 % (11.6-14.8) H Platelet Count 32 K/UL (150-450) L Mean Platelet Volume 10.7 FL (6.5-10.1) H Neutrophils (%) (Auto) % (45.0-75.0) Lymphocytes (%) (Auto) % (20.0-45.0) Monocytes (%) (Auto) % (1.0-10.0) Eosinophils (%) (Auto) % (0.0-3.0) Basophils (%) (Auto) % (0.0-2.0) CBC Comment See comment Arterial Blood pH 7.402 (7.350-7.450) Arterial Blood Partial Pressure CO2 31.8 mmHg (35.0-45.0) L Arterial Blood Partial Pressure O2 58.4 mmHg (75.0-100.0) L Arterial Blood HCO3 19.3 mmol/L (22.0-26.0) L Arterial Blood Oxygen Saturation 88.7 % (95-100) *L Arterial Blood Base Excess -4.9 (-2-2) L Javier Test Positive Test 07/07/20 11:15 White Blood Count 1.1 K/UL (4.8-10.8) #*L Red Blood Count 2.91 M/UL (4.70-6.10) L Hemoglobin 7.6 G/DL (14.2-18.0) L Hematocrit 23.7 % (42.0-52.0) L Mean Corpuscular Volume 82 FL (80-99) Mean Corpuscular Hemoglobin 26.0 PG (27.0-31.0) L Mean Corpuscular Hemoglobin Concent 31.9 G/DL (32.0-36.0) L Red Cell Distribution Width 19.2 % (11.6-14.8) H Platelet Count 15 K/UL (150-450) #L Mean Platelet Volume 12.2 FL (6.5-10.1) H Neutrophils (%) (Auto) % (45.0-75.0) Lymphocytes (%) (Auto) % (20.0-45.0) Monocytes (%) (Auto) % (1.0-10.0) Eosinophils (%) (Auto) % (0.0-3.0) Basophils (%) (Auto) % (0.0-2.0) Differential Total Cells Counted 100 Neutrophils % (Manual) 60 % (45-75) Lymphocytes % (Manual) 33 % (20-45) Monocytes % (Manual) 5 % (1-10) Eosinophils % (Manual) 0 % (0-3) Basophils % (Manual) 0 % (0-2) Band Neutrophils 2 % (0-8) Platelet Estimate Decreased L Platelet Morphology Normal Hypochromasia 1+ Anisocytosis 2+ Sodium Level 138 MMOL/L (136-145) Potassium Level 5.6 MMOL/L (3.5-5.1) H Chloride Level 103 MMOL/L (98-107) Carbon Dioxide Level 22 MMOL/L (21-32) Blood Urea Nitrogen 108 mg/dL (7-18) H Creatinine 7.8 MG/DL (0.55-1.30) H Estimat Glomerular Filtration Rate 6.7 mL/min (>60) Glucose Level 64 MG/DL (74-106) L Lactic Acid Level 3.90 mmol/L (0.4-2.0) H Calcium Level 7.9 MG/DL (8.5-10.1) L Troponin I 0.119 ng/mL (0.000-0.056) Microbiology Date/Time Source Procedure Growth Status 07/07/20 00:15 Nasopharynx SARS-CoV-2 RdRp Gene Assay - Final Complete Height (Feet): 5 Height (Inches): 6.00 Weight (Pounds): 140 Medications Current Medications Medications (Trade) Dose Ordered Sig/Maxi Route PRN Reason Start Time Stop Time Status Last Admin Dose Admin Acetaminophen (Tylenol) 500 mg Q4H PRN ORAL Mild Pain (1-3)/ Temp 100.4 07/07/20 07:00 08/06/20 06:59 Acyclovir (Zovirax) 200 mg TuThSa ORAL 07/07/20 09:00 08/06/20 08:59 Allopurinol (Zyloprim) 100 mg DAILY ORAL 07/07/20 09:00 08/06/20 08:59 Aspirin (Ecotrin) 81 mg DAILY ORAL 07/07/20 09:00 08/21/20 08:59 Atorvastatin Calcium (Lipitor) 10 mg BEDTIME ORAL 07/07/20 21:00 10/05/20 20:59 Calcium Acetate (Phoslo) 1,334 mg TIAC ORAL 07/07/20 11:30 10/05/20 11:29 Epoetin Emery (Epoetin Emery(ESRD on dialysis)) 6,000 unit THU-THU-THU SUBQ 07/09/20 21:00 10/07/20 20:59 Gabapentin (Neurontin) 100 mg QHS ORAL 07/07/20 21:00 08/06/20 20:59 Lidocaine (Lidoderm 5% PATCH) 1 patch DAILY TDERMAL 07/07/20 09:00 10/05/20 08:59 Mirtazapine (Remeron) 15 mg BEDTIME ORAL 07/07/20 21:00 10/05/20 20:59 Norepinephrine Bitartrate 250 ml @ 0 mls/hr Q24H IV 07/07/20 09:30 07/10/20 09:24 Oxycodone HCl (Roxicodone) 5 mg Q12H PRN ORAL pain (8-10) 07/07/20 07:00 07/14/20 06:59 Pantoprazole (Protonix) 40 mg EVERY 12 HOURS ORAL 07/07/20 09:00 08/06/20 08:59 Piperacillin Sod/ Tazobactam Sod 3.375 gm/Sodium Chloride 110 ml @ 27.5 mls/hr Q12HR IVPB 07/07/20 09:00 07/14/20 08:59 07/07/20 09:01 Sennosides (Senokot) 8.6 mg DAILY PRN ORAL Constipation 07/07/20 07:00 08/06/20 06:59 Vancomycin HCl (Vanco pharmacy to dose) 1 ea DAILY PRN MISC Per rx protocol 07/07/20 07:00 08/06/20 06:59 Vitamin B Complex (Vitamin B Complex) 1 tab DAILY ORAL 07/07/20 09:00 10/05/20 08:59 Assessment/Plan Problem List: (1) Anemia ICD Codes: D64.9 - Anemia, unspecified SNOMED: 557256574, 985740885 Qualifiers: Qualified Codes: D64.9 - Anemia, unspecified (2) Leukopenia ICD Codes: D72.819 - Decreased white blood cell count, unspecified SNOMED: 80010137, 958546817 Qualifiers: Qualified Codes: D72.819 - Decreased white blood cell count, unspecified (3) Thrombocytopenia ICD Codes: D69.6 - Thrombocytopenia, unspecified SNOMED: 769307444, 909795934 (4) Sepsis Assessment & Plan: 80M in ICU leukopenia, lactic acidosis, fevers, thrombocytopenia, renal insufficiency, neutropenia. do not recommend left wall catheter removal at this time line does not seem infected and would await blood cultures and treat with abx high risk for bleeding from line removal and new placement fistula okay, HD as per renal no acute surgical intervention at this time will monitor closely and follow with exam cxr noted abx as per ID heme input trend labs diet DAILY ESTIMATED NEEDS: Needs based on ESRD + HD, CA/ 54.5kg 30-35 kcals/kg 8970-3483 total kcals 1.2-1.8 g protein/kg 65-98 g total protein Fluids per MD NUTRITION DIAGNOSIS: * Swallowing difficulty R/T dysphagia, lethargy as evidenced by w/ an order for NGT insertion, NPO at this time. 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) CURRENT DIET:NPO PO DIET RECOMMENDATIONS: WHEN SAFE FOR ORAL DIET -> RENAL/texture per CANDLE MAKING SUPERVISOR ENTERAL NUTRITION RECOMMENDATIONS: W/ hemodynamic stability: Nepro @ 40ml/hr x 24 hrs to provide 960ml, 1728kcal, 78g prot, 698ml free water * FEED W/ HEMODYNAMIC STABILITY -> initiate Nepro @ 10ml/hr x 6hrs, advance 10ml q 4-6 hrs as tolerated to goal rate -> HOB over 30 degrees/ water flush per MD WITHOUT HEMODYNAMIC STABILITY, if able to keep HOB >30 degrees, rec trophic feeding of Nepro @ 5-10ml/hr ADDITIONAL RECOMMENDATIONS: * Per SNF: HT=62" ID=[id number] (06/29/20), daily calibrated bedscale wt * Monitor hemodynamic stability: "Levo on standby" at this time * Monitor lytes (K 5.3), check phos * TF rec as above when medically appropriate to feed and not safe for PO ICD Codes: A41.9 - Sepsis, unspecified organism SNOMED: 63402051, 232416770 Qualifiers: Qualified Codes: A41.9 - Sepsis, unspecified organism (5) Pneumonia ICD Codes: J18.9 - Pneumonia, unspecified organism SNOMED: 824546212, 314787042 Qualifiers: (6) NSTEMI (non-ST elevated myocardial infarction) ICD Codes: I21.4 - Non-ST elevation (NSTEMI) myocardial infarction SNOMED: 00164634, 367155741 (7) ESRD (end stage renal disease) on dialysis ICD Codes: N18.6 - End stage renal disease; Z99.2 - Dependence on renal dialysis SNOMED: 472849230, 309653785 (8) COVID-19 ruled out by laboratory testing ICD Codes: Z03.818 - Encounter for observation for suspected exposure to other biological agents ruled out SNOMED: 674482927, 840310737 (9) Shock ICD Codes: R57.9 - Shock, unspecified SNOMED: 58293557 (10) Elevated troponin ICD Codes: R77.8 - Other specified abnormalities of plasma proteins SNOMED: 063346664, 380762282, 487300521 Maurice Durán Jul 07, 2020 13:12
--- NOTE | 2020-07-07 13:56 | Infectious Diseases Prog Note ---
Assessment/Plan Assessment/Plan Full consult dictated: A) 1) neutropenia, sepsis, fevers 2) pancytopenia 3) esrd, hd, t-cell lymphoma, bladder ca, , effusion, dm, htn P) 1) meropenem, vancomycin, diflucan 2) check cultures, labs and chest x-ray 3) d/w Dr. Mcclain 4) thank you Subjective Allergies: Coded Allergies: LATEX, NATURAL RUBBER (Verified Allergy, Unknown, 07/07/20) MITOMYCIN (Verified Allergy, Unknown, 07/07/20) Uncoded Allergies: MYTOMYCIN (Allergy, Unknown, 07/07/20) Objective Last 24 Hour Vital Signs Date Time Temp Pulse Resp B/P (MAP) Pulse Ox O2 Delivery O2 Flow Rate FiO2 07/07/20 04:00 150 07/07/20 03:40 98.7 112 25 105/41 97 Room Air 07/07/20 03:30 98.7 112 25 105/41 97 Room Air 07/07/20 02:47 98.7 117 30 127/46 95 Room Air 07/07/20 02:00 98.7 130 32 127/99 94 Room Air 07/07/20 01:23 98.7 07/07/20 01:00 103.3 128 27 145/70 98 Room Air 07/07/20 00:15 130 22 Room Air 07/07/20 00:15 103.3 135 26 96/52 98 Room Air 07/07/20 00:08 100.2 130 22 112/80 (91) 97 Room Air Height (Feet): 5 Height (Inches): 6.00 Weight (Pounds): 140 Microbiology Date/Time Source Procedure Growth Status 07/07/20 00:15 Nasopharynx SARS-CoV-2 RdRp Gene Assay - Final Complete Laboratory Tests Test 07/07/20 00:15 07/07/20 00:30 07/07/20 01:15 07/07/20 09:31 Urine Color Pale yellow Urine Appearance Clear Urine pH 8 (4.5-8.0) Urine Specific [place] 1.010 (1.005-1.035) Urine Protein 3+ (NEGATIVE) H Urine Glucose (UA) 2+ (NEGATIVE) H Urine Ketones Negative (NEGATIVE) Urine Blood 1+ (NEGATIVE) H Urine Nitrite Negative (NEGATIVE) Urine Bilirubin Negative (NEGATIVE) Urine Urobilinogen Normal MG/DL (0.0-1.0) Urine Leukocyte Esterase Negative (NEGATIVE) Urine RBC 0-2 /HPF (0 - 0) H Urine WBC 0-2 /HPF (0 - 0) Urine Squamous Epithelial Cells Occasional /LPF Urine Bacteria Occasional /HPF (NONE) Urine Other Casts 0-2 /LPF (NONE) H Prothrombin Time 12.9 SEC (9.30-11.50) H Prothromb Time International Ratio 1.2 (0.9-1.1) H Activated Partial Thromboplast Time 35 SEC (23-33) H Sodium Level 135 MMOL/L (136-145) L Potassium Level 5.3 MMOL/L (3.5-5.1) H Chloride Level 98 MMOL/L (98-107) Carbon Dioxide Level 25 MMOL/L (21-32) Anion Gap 12 mmol/L (5-15) Blood Urea Nitrogen 103 mg/dL (7-18) H Creatinine 7.3 MG/DL (0.55-1.30) H Estimat Glomerular Filtration Rate 7.2 mL/min (>60) Glucose Level 81 MG/DL (74-106) Lactic Acid Level 1.70 mmol/L (0.4-2.0) Calcium Level 9.0 MG/DL (8.5-10.1) Magnesium Level 1.7 MG/DL (1.8-2.4) L Total Bilirubin 0.5 MG/DL (0.2-1.0) Aspartate Amino Transf (AST/SGOT) 27 U/L (15-37) Alanine Aminotransferase (ALT/SGPT) 18 U/L (12-78) Alkaline Phosphatase 88 U/L (46-116) Total Creatine Kinase 12 U/L (26-308) L Troponin I 0.082 ng/mL (0.000-0.056) Pro-B-Type Natriuretic Peptide 90281 pg/mL (0-125) H Total Protein 5.4 G/DL (6.4-8.2) L Albumin 1.6 G/DL (3.4-5.0) L Globulin 3.8 g/dL Albumin/Globulin Ratio 0.4 (1.0-2.7) L Lipase 47 U/L (73-393) L White Blood Count 0.1 K/UL (4.8-10.8) *L Red Blood Count 2.95 M/UL (4.70-6.10) L Hemoglobin 7.5 G/DL (14.2-18.0) L Hematocrit 22.5 % (42.0-52.0) L Mean Corpuscular Volume 76 FL (80-99) L Mean Corpuscular Hemoglobin 25.4 PG (27.0-31.0) L Mean Corpuscular Hemoglobin Concent 33.3 G/DL (32.0-36.0) Red Cell Distribution Width 16.4 % (11.6-14.8) H Platelet Count 32 K/UL (150-450) L Mean Platelet Volume 10.7 FL (6.5-10.1) H Neutrophils (%) (Auto) % (45.0-75.0) Lymphocytes (%) (Auto) % (20.0-45.0) Monocytes (%) (Auto) % (1.0-10.0) Eosinophils (%) (Auto) % (0.0-3.0) Basophils (%) (Auto) % (0.0-2.0) CBC Comment See comment Arterial Blood pH 7.402 (7.350-7.450) Arterial Blood Partial Pressure CO2 31.8 mmHg (35.0-45.0) L Arterial Blood Partial Pressure O2 58.4 mmHg (75.0-100.0) L Arterial Blood HCO3 19.3 mmol/L (22.0-26.0) L Arterial Blood Oxygen Saturation 88.7 % (95-100) *L Arterial Blood Base Excess -4.9 (-2-2) L Javier Test Positive Test 07/07/20 11:15 07/07/20 11:18 White Blood Count 1.1 K/UL (4.8-10.8) #*L Red Blood Count 2.91 M/UL (4.70-6.10) L Hemoglobin 7.6 G/DL (14.2-18.0) L Hematocrit 23.7 % (42.0-52.0) L Mean Corpuscular Volume 82 FL (80-99) Mean Corpuscular Hemoglobin 26.0 PG (27.0-31.0) L Mean Corpuscular Hemoglobin Concent 31.9 G/DL (32.0-36.0) L Red Cell Distribution Width 19.2 % (11.6-14.8) H Platelet Count 15 K/UL (150-450) #L Mean Platelet Volume 12.2 FL (6.5-10.1) H Neutrophils (%) (Auto) % (45.0-75.0) Lymphocytes (%) (Auto) % (20.0-45.0) Monocytes (%) (Auto) % (1.0-10.0) Eosinophils (%) (Auto) % (0.0-3.0) Basophils (%) (Auto) % (0.0-2.0) Differential Total Cells Counted 100 Neutrophils % (Manual) 60 % (45-75) Lymphocytes % (Manual) 33 % (20-45) Monocytes % (Manual) 5 % (1-10) Eosinophils % (Manual) 0 % (0-3) Basophils % (Manual) 0 % (0-2) Band Neutrophils 2 % (0-8) Platelet Estimate Decreased L Platelet Morphology Normal Hypochromasia 1+ Anisocytosis 2+ Sodium Level 138 MMOL/L (136-145) Potassium Level 5.6 MMOL/L (3.5-5.1) H Chloride Level 103 MMOL/L (98-107) Carbon Dioxide Level 22 MMOL/L (21-32) Blood Urea Nitrogen 108 mg/dL (7-18) H Creatinine 7.8 MG/DL (0.55-1.30) H Estimat Glomerular Filtration Rate 6.7 mL/min (>60) Glucose Level 64 MG/DL (74-106) L Lactic Acid Level 3.90 mmol/L (0.4-2.0) H Calcium Level 7.9 MG/DL (8.5-10.1) L Troponin I 0.119 ng/mL (0.000-0.056) Hepatitis B Surface Antigen Pending Current Medications Medications (Trade) Dose Ordered Sig/Maxi Route PRN Reason Start Time Stop Time Status Last Admin Dose Admin Acetaminophen (Tylenol) 500 mg Q4H PRN ORAL Mild Pain (1-3)/ Temp 100.4 07/07/20 07:00 08/06/20 06:59 Acyclovir (Zovirax) 200 mg TuThSa ORAL 07/07/20 09:00 08/06/20 08:59 Allopurinol (Zyloprim) 100 mg DAILY ORAL 07/07/20 09:00 08/06/20 08:59 Aspirin (Ecotrin) 81 mg DAILY ORAL 07/07/20 09:00 08/21/20 08:59 Atorvastatin Calcium (Lipitor) 10 mg BEDTIME ORAL 07/07/20 21:00 10/05/20 20:59 Calcium Acetate (Phoslo) 1,334 mg TIAC ORAL 07/07/20 11:30 10/05/20 11:29 Epoetin Emery (Epoetin Emery(ESRD on dialysis)) 6,000 unit THU-THU-THU SUBQ 07/09/20 21:00 10/07/20 20:59 Gabapentin (Neurontin) 100 mg QHS ORAL 07/07/20 21:00 08/06/20 20:59 Lidocaine (Lidoderm 5% PATCH) 1 patch DAILY TDERMAL 07/07/20 09:00 10/05/20 08:59 Mirtazapine (Remeron) 15 mg BEDTIME ORAL 07/07/20 21:00 10/05/20 20:59 Norepinephrine Bitartrate 250 ml @ 0 mls/hr Q24H IV 07/07/20 09:30 07/10/20 09:24 Oxycodone HCl (Roxicodone) 5 mg Q12H PRN ORAL pain (8-10) 07/07/20 07:00 07/14/20 06:59 Pantoprazole (Protonix) 40 mg EVERY 12 HOURS ORAL 07/07/20 09:00 08/06/20 08:59 Sennosides (Senokot) 8.6 mg DAILY PRN ORAL Constipation 07/07/20 07:00 08/06/20 06:59 Vancomycin HCl (Vanco pharmacy to dose) 1 ea DAILY PRN MISC Per rx protocol 07/07/20 07:00 08/06/20 06:59 Vancomycin HCl (Vanco pharmacy to dose) 1 ea DAILY PRN MISC Per rx protocol 07/07/20 13:30 08/06/20 13:29 UNV Vitamin B Complex (Vitamin B Complex) 1 tab DAILY ORAL 07/07/20 09:00 10/05/20 08:59 Leyda Jensen MD Jul 07, 2020 13:56
--- NOTE | 2020-07-07 14:02 | NUR ---
CASE MANAGEMENT:INITIAL REVIEW 80 YR OLD MALE BIBA FROM [facility] CC;FEVER SI;SEPSIS. PNA. NSTEMI. COVID RULE OUT. T 103.3 P 135 R 32 BP 96/52 O2 97% ON RA WBC 0.1 H/H 7.5/22.5 PLT 32 NA 135 K+ 5.3 BUN 103 CR 7.3 MAG 1.7 BNP 62071 ALB 1.6 PT 12.9 INR 1.2 APTT 35 UA+ PROTEIN, GLUCOSE, BLOOD, RBC, OTHER CASTS COVID RAPID ~ NEGATIVE IS;IVF NS BOLUS TYLENOL RECTAL ROCEPHIN IV ZITHROMAX IV VANCOMYCIN IV ASA RECTAL ADMITTED TO ICU ICU STATUS DCP;FROM [facility]
--- NOTE | 2020-07-07 14:05 | NUR ---
NURSE NOTES: tech here to do 2 d echo.
--- NOTE | 2020-07-07 14:10 | NUR ---
DEBT COUNSELOR NOTE [place] [facility] [place] INFORM THAT PER PATIENTS PCP DR LILLY LAUREANO MD REQUESTS FOR PATIENT TO BE TRANSFERRED TO [facility] PENDING BED AVAILABILITY D/T PATIENT COMPLEX CONDITION. CLINICALS FAXED TO [facility] P: [phone] F: [phone]
--- NOTE | 2020-07-07 14:47 | NUR ---
NURSE NOTES: hanging 1/1 units PRBC's. vs 98.8 ax, 120, 93/67,98%, 29. pt lethargic, olurgic. 2 witness performed. will continue to monitor pt closely.
--- NOTE | 2020-07-07 15:00 | NUR ---
NURSE NOTES: late entry: 09/28 unit prbc. 97.4, 93/64, 122, 98%, 27. pt lethargic. opens eyes to name. moving extremities more. will continue to monitor.
[2020-07-07] MEDS ORDERED: Digoxin 0.5mg/2ml Inj IVP ONE (16:00)
--- NOTE | 2020-07-07 16:07 | NUR ---
KENO WRITER / RUNNER NOTE FOLLOW UP CALL MADE TO [facility] [phone]. S/W AYALA, CONFIRMED RECEIPT OF REFERRAL. CONFIRMED THAT DR DILL WILL FOLLOW PATIENT AT [facility]. INFORMED THAT TRANSFER IS CURRENTLY PENDING BED AVAILABILITY. ONCE BED IS AVAILABLE, TRANSFER CENTER WILL CONTACT ICU TO COORDINATE TRANSFER. LOREN DAVENPORT INFORMED
--- NOTE | 2020-07-07 16:42 | Cardiac Electrophysiology PN ---
Subjective Subjective [id number] Objective Last 24 Hour Vital Signs Date Time Temp Pulse Resp B/P (MAP) Pulse Ox O2 Delivery O2 Flow Rate FiO2 07/07/20 16:00 122 28 68/47 (54) 96 07/07/20 16:00 121 07/07/20 15:09 97.1 07/07/20 15:00 120 28 114/54 (74) 98 07/07/20 14:00 120 28 97/65 (76) 98 07/07/20 13:30 118 27 85/51 (62) 98 07/07/20 13:00 116 27 83/51 (62) 97 07/07/20 12:30 149 27 127/63 (84) 97 07/07/20 12:00 2.0 07/07/20 12:00 97.4 150 26 114/52 (72) 100 07/07/20 12:00 120 07/07/20 11:30 150 26 114/52 (72) 100 07/07/20 11:00 120 24 103/49 (67) 100 07/07/20 10:30 119 23 84/42 (56) 100 07/07/20 10:00 121 20 145/89 (107) 97 07/07/20 10:00 53/45 07/07/20 09:10 2.0 07/07/20 09:00 100 20 85/37 (53) 97 07/07/20 08:00 99.8 81 18 81/44 (56) 97 07/07/20 04:00 150 07/07/20 03:40 98.7 112 25 105/41 97 Room Air 07/07/20 03:30 98.7 112 25 105/41 97 Room Air 07/07/20 02:47 98.7 117 30 127/46 95 Room Air 07/07/20 02:00 98.7 130 32 127/99 94 Room Air 07/07/20 01:23 98.7 07/07/20 01:00 103.3 128 27 145/70 98 Room Air 07/07/20 00:15 130 22 Room Air 07/07/20 00:15 103.3 135 26 96/52 98 Room Air 07/07/20 00:08 100.2 130 22 112/80 (91) 97 Room Air Laboratory Tests Test 07/07/20 00:15 07/07/20 00:30 07/07/20 01:15 07/07/20 09:31 Urine Color Pale yellow Urine Appearance Clear Urine pH 8 (4.5-8.0) Urine Specific [place] 1.010 (1.005-1.035) Urine Protein 3+ (NEGATIVE) H Urine Glucose (UA) 2+ (NEGATIVE) H Urine Ketones Negative (NEGATIVE) Urine Blood 1+ (NEGATIVE) H Urine Nitrite Negative (NEGATIVE) Urine Bilirubin Negative (NEGATIVE) Urine Urobilinogen Normal MG/DL (0.0-1.0) Urine Leukocyte Esterase Negative (NEGATIVE) Urine RBC 0-2 /HPF (0 - 0) H Urine WBC 0-2 /HPF (0 - 0) Urine Squamous Epithelial Cells Occasional /LPF Urine Bacteria Occasional /HPF (NONE) Urine Other Casts 0-2 /LPF (NONE) H Prothrombin Time 12.9 SEC (9.30-11.50) H Prothromb Time International Ratio 1.2 (0.9-1.1) H Activated Partial Thromboplast Time 35 SEC (23-33) H Sodium Level 135 MMOL/L (136-145) L Potassium Level 5.3 MMOL/L (3.5-5.1) H Chloride Level 98 MMOL/L (98-107) Carbon Dioxide Level 25 MMOL/L (21-32) Anion Gap 12 mmol/L (5-15) Blood Urea Nitrogen 103 mg/dL (7-18) H Creatinine 7.3 MG/DL (0.55-1.30) H Estimat Glomerular Filtration Rate 7.2 mL/min (>60) Glucose Level 81 MG/DL (74-106) Lactic Acid Level 1.70 mmol/L (0.4-2.0) Calcium Level 9.0 MG/DL (8.5-10.1) Magnesium Level 1.7 MG/DL (1.8-2.4) L Total Bilirubin 0.5 MG/DL (0.2-1.0) Aspartate Amino Transf (AST/SGOT) 27 U/L (15-37) Alanine Aminotransferase (ALT/SGPT) 18 U/L (12-78) Alkaline Phosphatase 88 U/L (46-116) Total Creatine Kinase 12 U/L (26-308) L Troponin I 0.082 ng/mL (0.000-0.056) Pro-B-Type Natriuretic Peptide 95763 pg/mL (0-125) H Total Protein 5.4 G/DL (6.4-8.2) L Albumin 1.6 G/DL (3.4-5.0) L Globulin 3.8 g/dL Albumin/Globulin Ratio 0.4 (1.0-2.7) L Lipase 47 U/L (73-393) L White Blood Count 0.1 K/UL (4.8-10.8) *L Red Blood Count 2.95 M/UL (4.70-6.10) L Hemoglobin 7.5 G/DL (14.2-18.0) L Hematocrit 22.5 % (42.0-52.0) L Mean Corpuscular Volume 76 FL (80-99) L Mean Corpuscular Hemoglobin 25.4 PG (27.0-31.0) L Mean Corpuscular Hemoglobin Concent 33.3 G/DL (32.0-36.0) Red Cell Distribution Width 16.4 % (11.6-14.8) H Platelet Count 32 K/UL (150-450) L Mean Platelet Volume 10.7 FL (6.5-10.1) H Neutrophils (%) (Auto) % (45.0-75.0) Lymphocytes (%) (Auto) % (20.0-45.0) Monocytes (%) (Auto) % (1.0-10.0) Eosinophils (%) (Auto) % (0.0-3.0) Basophils (%) (Auto) % (0.0-2.0) CBC Comment See comment Arterial Blood pH 7.402 (7.350-7.450) Arterial Blood Partial Pressure CO2 31.8 mmHg (35.0-45.0) L Arterial Blood Partial Pressure O2 58.4 mmHg (75.0-100.0) L Arterial Blood HCO3 19.3 mmol/L (22.0-26.0) L Arterial Blood Oxygen Saturation 88.7 % (95-100) *L Arterial Blood Base Excess -4.9 (-2-2) L Javier Test Positive Test 07/07/20 11:15 07/07/20 11:18 07/07/20 14:30 White Blood Count 1.1 K/UL (4.8-10.8) #*L Red Blood Count 2.91 M/UL (4.70-6.10) L Hemoglobin 7.6 G/DL (14.2-18.0) L Hematocrit 23.7 % (42.0-52.0) L Mean Corpuscular Volume 82 FL (80-99) Mean Corpuscular Hemoglobin 26.0 PG (27.0-31.0) L Mean Corpuscular Hemoglobin Concent 31.9 G/DL (32.0-36.0) L Red Cell Distribution Width 19.2 % (11.6-14.8) H Platelet Count 15 K/UL (150-450) #L Mean Platelet Volume 12.2 FL (6.5-10.1) H Neutrophils (%) (Auto) % (45.0-75.0) Lymphocytes (%) (Auto) % (20.0-45.0) Monocytes (%) (Auto) % (1.0-10.0) Eosinophils (%) (Auto) % (0.0-3.0) Basophils (%) (Auto) % (0.0-2.0) Differential Total Cells Counted 100 Neutrophils % (Manual) 60 % (45-75) Lymphocytes % (Manual) 33 % (20-45) Monocytes % (Manual) 5 % (1-10) Eosinophils % (Manual) 0 % (0-3) Basophils % (Manual) 0 % (0-2) Band Neutrophils 2 % (0-8) Platelet Estimate Decreased L Platelet Morphology Normal Hypochromasia 1+ Anisocytosis 2+ Sodium Level 138 MMOL/L (136-145) Potassium Level 5.6 MMOL/L (3.5-5.1) H Chloride Level 103 MMOL/L (98-107) Carbon Dioxide Level 22 MMOL/L (21-32) Blood Urea Nitrogen 108 mg/dL (7-18) H Creatinine 7.8 MG/DL (0.55-1.30) H Estimat Glomerular Filtration Rate 6.7 mL/min (>60) Glucose Level 64 MG/DL (74-106) L Lactic Acid Level 3.90 mmol/L (0.4-2.0) H 3.70 mmol/L (0.66-2.22) H Calcium Level 7.9 MG/DL (8.5-10.1) L Troponin I 0.119 ng/mL (0.000-0.056) Hepatitis B Surface Antigen Pending Microbiology Date/Time Source Procedure Growth Status 07/07/20 00:15 Nasopharynx SARS-CoV-2 RdRp Gene Assay - Final Complete Fredi Colindres MD Jul 07, 2020 16:42
--- NOTE | 2020-07-07 17:45 | Consultation ---
DATE OF CONSULTATION: 07/07/2020 CARDIOLOGY CONSULTATION REFERRING PHYSICIAN: Chase Coley M.D. REASON FOR CONSULTATION: Management of hypotension and wide-complex tachycardia. HISTORY OF PRESENT ILLNESS: The patient is an 80-year-old gentleman with a history of hypertension, diabetes, and end-stage renal disease, on hemodialysis, as well as congestive heart failure with diastolic dysfunction and moderate to severe aortic stenosis and recurrent left pleural effusion and bladder cancer as well as T-cell lymphoma, who was sent to the emergency room for evaluation of fever from [facility]. The patient was noted to be tachycardic and pancytopenic with a white count of 0.1, hemoglobin 7.5, and platelet count of 32. The patient's rapid COVID-19 was negative. The patient's BNP was 28,000, and the EKG shows sinus tachycardia with right bundle-branch block. The patient was pancultured and transferred to intensive care unit and, in view of hypotension, started on Levophed. At the time of my evaluation, the patient is confused and not able to provide any meaningful information. REVIEW OF SYSTEMS: Negative other than what was mentioned in history of present illness. PAST MEDICAL HISTORY: As mentioned above. FAMILY HISTORY: Noncontributory. SOCIAL HISTORY: group home resident. PHYSICAL EXAMINATION: VITAL SIGNS: Blood pressure of 68/47, pulse is 120, respirations 18. HEAD AND NECK: No JVD. LUNGS: Decreased breath sounds. CARDIOVASCULAR: Regular S1 and S2 with no gallop or murmur, tachycardic. ABDOMEN: Soft. EXTREMITIES: 1+ pitting edema. LABORATORY AND DIAGNOSTIC DATA: His labs show white count was 0.1 and today is 1.1, hemoglobin 7.6, hematocrit 23.7, platelet count of only 15. Sodium is 138, potassium 5.6, BUN of 108, creatinine 7.8. Glucose of 64. Troponin 0.119 and 0.082. BNP 28,000. ASSESSMENT AND PLAN: 1. Troponin elevation. The levels are low and likely due to demand ischemia in this patient with severe anemia as well as hypotension. He is on Levophed. His echocardiogram also showed ejection fraction of 40% and severe aortic stenosis, aortic valve area of 0.6. 2. Hypotension, due to sepsis in this patient with leukopenia. The patient is on broad-spectrum IV antibiotic. 3. Pancytopenia. The patient is getting blood transfusion as well as platelet transfusion, likely due to chemotherapy. 4. Hyperlipidemia, on Lipitor. In view of the patient's thrombocytopenia, I will discontinue aspirin. 5. Severe aortic stenosis, aortic valve area of 0.6. 6. Congestive heart failure, ejection fraction only 40%. Thank you very much for allowing me to participate in the care of this patient. Please do not hesitate to contact me for any questions regarding my evaluation. Fredi Colindres M.D. DR: МАРИЯ JOB#: [id number] CC:
--- NOTE | 2020-07-07 19:40 | NUR ---
NURSE NOTES: Received report from ANKUSH Hammonds. Pt is resting on the bed and get hemodialysis. Pt is confused and sight agitated. Able to open the eyes spontaneously. On deployment specialist with ST and HR : 120-130's. OnO2 4L via nasal cannula ad SaO2 99-100% noted. On NPO. According to previous nurse, held insert NGT d/t low platelet and high risk of bleeding. no fever. Pt has Love cath and patent and drainage well. Pt has IV on Lt FA and no sign of infiltration noted. Pt has Lt. subclavian double lumen and dressing is clean and dry. On running with Levophed drip @ 6mcg/min. Pt has Rt. AV shunt for dialysis access. Placed fall precaution. Will continue to care plan.
[2020-07-07] MEDS: Dyna-Hex 2% Top Sol 2oz TOPIC SCH (20:28)
--- NOTE | 2020-07-07 20:30 | NUR ---
NURSE NOTES: Finished Hemodialysis and noted 600cc output. Will continue to care plan.
--- NOTE | 2020-07-07 22:00 | NUR ---
NURSE NOTES: Pt is resting on the bed. On registered nurse cardiac with ST. On running with Levophed drip 2 6mcg/min. Changed position. Will continue to monitor any change of condition.
--- NOTE | 2020-07-07 22:30 | NUR ---
NURSE NOTES: Get call from Dr. Mcclain and update Pt's condition. No new order noted. Will continue to monitor any change of condition.
[2020-07-08] VITALS (55 sets, daily range): BP systolic 65–128; BP diastolic 46–97
--- NOTE | 2020-07-08 | NUR ---
NURSE NOTES: Pt is resting on the bed and confused and agitated. Given realty orientation. On clinical research monitor with ST. No fever. Patent Foely cath. SaO2 99-100% with O2 4L via nasal cannula. No sign of active bleeding. On Levophed drip @ 6mcg/min. Turn and reposition. Will continue to monitor any change of condition.
--- NOTE | 2020-07-08 01:12 | NUR ---
NURSE NOTES: Get call from Janis who is [facility] staff. Updated Pt's condition. She said not available room today. Will continue to care plan.
--- NOTE | 2020-07-08 02:00 | NUR ---
NURSE NOTES: pt is sleeping on the bed and no sign of acute distress noted. BP 109/82mmHg with Levophed drip @ 6mcg/min. SaO2 100% with O2 4L via nasal cannula. Changed position. Placed fall precaution. Will continue to monitor.
--- NOTE | 2020-07-08 04:00 | NUR ---
NURSE NOTES: morning care was done. Give bed bath. Cleaned Pt and applied lotion and cream. Changed dressing on Lt. clavian double lumen. No sign of infiltration noted. SaO2 100% with O2 4L via nasal cannula. on grain manager with ST. No fever. noted BP : 119/78mmHg. Decrease Levophed drip @ 4mcg/min as titrate. changed position. Will continue to monitor any change of condition.
--- NOTE | 2020-07-08 06:00 | NUR ---
NURSE NOTES: Pt is resting on the bed and awake and confused. Noted BP: 106/65mmHg and HR: 116's. Decrease Levophed drip @ 2mcg/min. Will continue to monitor any change of condition.
[2020-07-08 06:11] LABS: HEMATOCRIT 23.6 % (42.0-52.0); HEMOGLOBIN 7.7 G/DL (14.2-18.0); MEAN CORPUSCULAR VOLUME 78 FL (80-99); PLATELET COUNT 14 K/UL (150-450); RED BLOOD COUNT 3.04 M/UL (4.70-6.10); RED CELL DISTRIBUTION WIDTH 17.2 % (11.6-14.8)
[2020-07-08 06:20] LABS: AMMONIA 14 umol/L (11-32)
[2020-07-08 06:23] LABS: % IRON SATURATION 16 % (15-50); IRON 14 ug/dL (50-175); TOTAL IRON BINDING CAPACITY 90 ug/dL (250-450)
[2020-07-08 06:30] LABS: GAMMA GLUTAMYL TRANSPEPTIDASE 62 U/L (5-85)
[2020-07-08 06:33] LABS: ALANINE AMINOTRANSFERASE 41 U/L (12-78); ALBUMIN 1.7 G/DL (3.4-5.0); ALBUMIN/GLOBULIN RATIO 0.4 (1.0-2.7); ALKALINE PHOSPHATASE 94 U/L (46-116); ANION GAP 15 mmol/L (5-15); ASPARTATE AMINO TRANSFERASE 65 U/L (15-37); BILIRUBIN,TOTAL 0.9 MG/DL (0.2-1.0); BLOOD UREA NITROGEN 72 mg/dL (7-18); CALCIUM 7.8 MG/DL (8.5-10.1); CARBON DIOXIDE 23 MMOL/L (21-32); CHLORIDE 100 MMOL/L (98-107); CHOLESTEROL 54 MG/DL (< 200); CREATININE 5.3 MG/DL (0.55-1.30); HDL CHOLESTEROL 15 MG/DL (40-60); SODIUM 138 MMOL/L (136-145); TRIGLYCERIDES 98 MG/DL (30-150)
--- NOTE | 2020-07-08 06:50 | NUR ---
NURSE NOTES: Noted BS 24mg/dl. Asymptomatic. Pt is awake but confused. Given D50w 50cc and rechecked BS: 145mmHg. Noted troponin level 0.074. Left message to Dr. Mcclain and awaiting call back. On front desk monitor with ST and HR 130-140's. Left message to Dr. Colindres for troponin level and awaiting call back.
[2020-07-08 06:55] LABS: FERRITIN > 2000 NG/ML (8-388)
--- NOTE | 2020-07-08 07:15 | NUR ---
NURSE HAND-OFF REPORT: Latest Vital Signs: Temperature 98.9 , Pulse 136 , B/P 128 /86 , Respiratory Rate 23 , O2 SAT 99 , Nasal Cannula, O2 Flow Rate 4.0 . EKG Rhythm: Sinus Tachycardia Rhythm change?: N Latest [place] Fall Score: 60 Fall Risk: High Risk Safety Measures: Call light Within Reach, Bed Alarm Zone 1, Side Rails Side Rails x3, Bed position Low and Locked. Fall Precautions: Yellow Socks Yellow Gown Door Sign Patient Fall Education Report given to ANKUSH Hammonds. Pt is resting on the bed and awake and confused. Didn't call back from Dr. Colindres and Dr. iraheta. Endorsed incoming nurse. Dr. Monroe visited and assessed Pt.
--- NOTE | 2020-07-08 07:33 | NUR ---
NURSE NOTES: RECEIVED REPORT FROM ANKUSH EAGLE. PT IN BED. FATIGUED, RESTLESS. PT CONFUSED. PT EDUCATED ON NOT REMOVING NC. LABORED BREATHING NOTED. SATING 90'S. NO COUGH. HOB>30. LUNG SOUNDS DIMINISHED. 4L NC. NOTED DRIED BLOOD IN ORAL CAVITY. ORAL CARE PROVIDED, MINIMAL IMPROVEMENT. PT NPO. NGT ON HOLD UNTIL INCREASED PLT LEVEL. ABDOMEN DISTENDED, ROUND. BOWEL SOUNDS HYPOACTIVE. PT HAD ONE BM, PT CLEANED, REPOSITIONED. OCCULT STOOL COLLECTED. BILATERAL RADIAL PULSES WEAK. RT AV GRAFT, LT SUBCLAVIAN FLUIDS LEVOPHED AT 2MCG/KG/MIN. D5 1/2 NS AT 30ML/HR. SKIN IN TACT. NO JVD. NEUTROPENIC PRECAUTIONS IN PLACE. CALL LIGHT IN REACH, BED ALARM ON. SIDE RAILS X2. WILL CONTINUE TO MONITOR PT.
--- NOTE | 2020-07-08 07:34 | Consultation ---
History of Present Illness General Chief Complaint: Fever Present Illness Allergies: Coded Allergies: LATEX, NATURAL RUBBER (Verified Allergy, Unknown, 07/07/20) MITOMYCIN (Verified Allergy, Unknown, 07/07/20) Uncoded Allergies: MYTOMYCIN (Allergy, Unknown, 07/07/20) Medication History Scheduled Acyclovir* (Acyclovir*), 200 MG ORAL 3XW, (Reported) Allopurinol* (Allopurinol*), 100 MG ORAL DAILY, (Reported) Amlodipine Besylate* (Amlodipine Besylate*), 5 MG ORAL DAILY, (Reported) Aspirin* (Aspirin*), 81 MG ORAL DAILY, (Reported) Calcium Acetate (Calcium Acetate), 667 MG PO TID, (Reported) Docusate Sodium* (Colace*), 100 MG ORAL TWICE A DAY, (Reported) Epoetin Emery (Procrit), 3,000 UNIT SUBQ 3XW, (Reported) Gabapentin* (Gabapentin*), 100 MG ORAL THREE TIMES A DAY, (Reported) Lidocaine Patch* (Lidoderm Patch*), 1 PATCH TOPIC DAILY, (Reported) Losartan Potassium* (Losartan Potassium*), 100 MG ORAL DAILY, (Reported) Mirtazapine* (Mirtazapine*), 15 MG ORAL BEDTIME, (Reported) Nut.tx,Imp.digest,Soy,Lact-Red (Pronourish), 237 ML PO BID, (Reported) Polyethylene Glycol 3350* (Polyethylene Glycol 3350*), 17 GM ORAL DAILY, (Reported) Scheduled PRN Acetaminophen* (Acetaminophen 325MG Tablet*), 500 MG ORAL Q4H PRN for For Pain, (Reported) Melatonin (Melatonin), 3 MG ORAL BEDTIME PRN for Insomnia, (Reported) Methocarbamol* (Robaxin-500*), 500 MG ORAL QID PRN for For Pain, (Reported) Miscellaneous Medications B Complx/C/Folic/Zinc/Cup Manning/E (Yocvunczmmdf-Kapj-Wbqaii Tab), 1 EACH PO, (Reported) Filgrastim (Neupogen), 300 MCG IJ, (Reported) Sennosides (Senna), 8.6 MG PO, (Reported) Patient History Healthcare decision maker Resuscitation status Advanced Directive on File Physical Exam Last 24 Hour Vital Signs Date Time Temp Pulse Resp B/P (MAP) Pulse Ox O2 Delivery O2 Flow Rate FiO2 07/08/20 07:00 136 23 128/86 (100) 99 07/08/20 06:30 139 20 98/65 (76) 100 07/08/20 06:00 116 22 106/65 (79) 100 07/08/20 05:30 116 21 100/65 (77) 99 07/08/20 05:00 140 20 105/69 (81) 100 07/08/20 04:30 143 25 111/74 (86) 99 07/08/20 04:00 Nasal Cannula 4.0 07/08/20 04:00 139 07/08/20 04:00 98.9 113 20 119/78 (92) 100 07/08/20 03:30 139 22 112/70 (84) 100 07/08/20 03:00 138 21 114/84 (94) 100 07/08/20 02:30 137 16 109/82 (91) 100 07/08/20 02:00 116 24 119/75 (90) 100 07/08/20 01:30 120 24 117/74 (88) 100 07/08/20 01:00 119 25 116/73 (87) 100 07/08/20 00:30 111 19 102/82 (89) 99 07/08/20 00:00 98.8 142 24 112/70 (84) 99 07/08/20 00:00 Nasal Cannula 4.0 07/08/20 00:00 143 07/07/20 23:30 143 26 125/87 (100) 100 07/07/20 23:00 126 29 115/75 (88) 100 07/07/20 22:34 111/75 07/07/20 22:30 117 22 94/60 (71) 100 07/07/20 22:00 137 24 98/69 (79) 100 07/07/20 21:30 142 25 107/80 (89) 100 07/07/20 21:00 139 21 103/73 (83) 100 07/07/20 20:30 139 25 105/72 (83) 100 07/07/20 20:00 126 07/07/20 20:00 98.5 140 20 107/75 (86) 100 07/07/20 20:00 Nasal Cannula 4.0 07/07/20 19:30 124 25 121/75 (90) 100 07/07/20 19:00 122 25 102/86 (91) 100 07/07/20 18:00 122 26 95/64 (74) 99 07/07/20 17:00 145 30 120/76 (91) 96 07/07/20 16:00 122 28 68/47 (54) 96 07/07/20 16:00 Nasal Cannula 4.0 07/07/20 16:00 121 07/07/20 15:09 97.1 07/07/20 15:00 120 28 114/54 (74) 98 07/07/20 14:00 120 28 97/65 (76) 98 07/07/20 13:30 118 27 85/51 (62) 98 07/07/20 13:00 116 27 83/51 (62) 97 07/07/20 12:30 149 27 127/63 (84) 97 07/07/20 12:00 2.0 07/07/20 12:00 97.4 150 26 114/52 (72) 100 07/07/20 12:00 120 07/07/20 12:00 Nasal Cannula 4.0 07/07/20 11:30 150 26 114/52 (72) 100 07/07/20 11:00 120 24 103/49 (67) 100 07/07/20 10:30 119 23 84/42 (56) 100 07/07/20 10:00 121 20 145/89 (107) 97 07/07/20 10:00 53/45 07/07/20 09:10 2.0 07/07/20 09:00 100 20 85/37 (53) 97 07/07/20 08:00 99.8 81 18 81/44 (56) 97 Intake and Output 07/07/20 07/08/20 19:00 07:00 Intake Total 1643.0 ml 189.75 ml Output Total 65 ml 40 ml Balance 1578.0 ml 149.75 ml Intake IV Total 1379.0 ml 189.75 ml Blood Product 264 ml Output Urine Total 65 ml 40 ml Laboratory Tests Test 07/07/20 09:31 07/07/20 11:15 07/07/20 11:18 07/07/20 14:30 Arterial Blood pH 7.402 (7.350-7.450) Arterial Blood Partial Pressure CO2 31.8 mmHg (35.0-45.0) L Arterial Blood Partial Pressure O2 58.4 mmHg (75.0-100.0) L Arterial Blood HCO3 19.3 mmol/L (22.0-26.0) L Arterial Blood Oxygen Saturation 88.7 % (95-100) *L Arterial Blood Base Excess -4.9 (-2-2) L Javier Test Positive White Blood Count 1.1 K/UL (4.8-10.8) #*L Red Blood Count 2.91 M/UL (4.70-6.10) L Hemoglobin 7.6 G/DL (14.2-18.0) L Hematocrit 23.7 % (42.0-52.0) L Mean Corpuscular Volume 82 FL (80-99) Mean Corpuscular Hemoglobin 26.0 PG (27.0-31.0) L Mean Corpuscular Hemoglobin Concent 31.9 G/DL (32.0-36.0) L Red Cell Distribution Width 19.2 % (11.6-14.8) H Platelet Count 15 K/UL (150-450) #L Mean Platelet Volume 12.2 FL (6.5-10.1) H Neutrophils (%) (Auto) % (45.0-75.0) Lymphocytes (%) (Auto) % (20.0-45.0) Monocytes (%) (Auto) % (1.0-10.0) Eosinophils (%) (Auto) % (0.0-3.0) Basophils (%) (Auto) % (0.0-2.0) Differential Total Cells Counted 100 Neutrophils % (Manual) 60 % (45-75) Lymphocytes % (Manual) 33 % (20-45) Monocytes % (Manual) 5 % (1-10) Eosinophils % (Manual) 0 % (0-3) Basophils % (Manual) 0 % (0-2) Band Neutrophils 2 % (0-8) Platelet Estimate Decreased L Platelet Morphology Normal Hypochromasia 1+ Anisocytosis 2+ Sodium Level 138 MMOL/L (136-145) Potassium Level 5.6 MMOL/L (3.5-5.1) H Chloride Level 103 MMOL/L (98-107) Carbon Dioxide Level 22 MMOL/L (21-32) Blood Urea Nitrogen 108 mg/dL (7-18) H Creatinine 7.8 MG/DL (0.55-1.30) H Estimat Glomerular Filtration Rate 6.7 mL/min (>60) Glucose Level 64 MG/DL (74-106) L Lactic Acid Level 3.90 mmol/L (0.4-2.0) H 3.70 mmol/L (0.66-2.22) H Calcium Level 7.9 MG/DL (8.5-10.1) L Troponin I 0.119 ng/mL (0.000-0.056) Hepatitis B Surface Antigen Pending Test 07/07/20 21:40 07/07/20 23:30 07/08/20 06:00 Lactic Acid Level 3.50 mmol/L (0.4-2.0) H 2.50 mmol/L (0.66-2.22) H 1.50 mmol/L (0.4-2.0) White Blood Count 4.6 K/UL (4.8-10.8) #L Red Blood Count 3.04 M/UL (4.70-6.10) L Hemoglobin 7.7 G/DL (14.2-18.0) L Hematocrit 23.6 % (42.0-52.0) L Mean Corpuscular Volume 78 FL (80-99) L Mean Corpuscular Hemoglobin 25.3 PG (27.0-31.0) L Mean Corpuscular Hemoglobin Concent 32.5 G/DL (32.0-36.0) Red Cell Distribution Width 17.2 % (11.6-14.8) H Platelet Count 14 K/UL (150-450) L Mean Platelet Volume 12.5 FL (6.5-10.1) H Neutrophils (%) (Auto) 37.3 % (45.0-75.0) L Lymphocytes (%) (Auto) 22.2 % (20.0-45.0) Monocytes (%) (Auto) 30.3 % (1.0-10.0) H Eosinophils (%) (Auto) 1.4 % (0.0-3.0) Basophils (%) (Auto) 8.7 % (0.0-2.0) H Neutrophils % (Manual) Pending Lymphocytes % (Manual) Pending Platelet Estimate Pending Platelet Morphology Pending Sodium Level 138 MMOL/L (136-145) Potassium Level 5.0 MMOL/L (3.5-5.1) Chloride Level 100 MMOL/L (98-107) Carbon Dioxide Level 23 MMOL/L (21-32) Anion Gap 15 mmol/L (5-15) Blood Urea Nitrogen 72 mg/dL (7-18) H Creatinine 5.3 MG/DL (0.55-1.30) H Estimat Glomerular Filtration Rate 10.5 mL/min (>60) Glucose Level 35 MG/DL (74-106) *L Uric Acid 3.2 MG/DL (2.6-7.2) Calcium Level 7.8 MG/DL (8.5-10.1) L Phosphorus Level 6.0 MG/DL (2.5-4.9) H Magnesium Level 2.0 MG/DL (1.8-2.4) Iron Level 14 ug/dL (50-175) L Total Iron Binding Capacity 90 ug/dL (250-450) L Percent Iron Saturation 16 % (15-50) Unsaturated Iron Binding 76 ug/dL (112-346) L Ferritin > 2000 NG/ML (8-388) H Total Bilirubin 0.9 MG/DL (0.2-1.0) Gamma Glutamyl Transpeptidase 62 U/L (5-85) Aspartate Amino Transf (AST/SGOT) 65 U/L (15-37) H Alanine Aminotransferase (ALT/SGPT) 41 U/L (12-78) Alkaline Phosphatase 94 U/L (46-116) Ammonia 14 umol/L (11-32) Troponin I 0.704 ng/mL (0.000-0.056) C-Reactive Protein, Quantitative 67.1 mg/dL (0.00-0.90) H Pro-B-Type Natriuretic Peptide > 93918 pg/mL (0-125) H Total Protein 5.5 G/DL (6.4-8.2) L Albumin 1.7 G/DL (3.4-5.0) L Globulin 3.8 g/dL Albumin/Globulin Ratio 0.4 (1.0-2.7) L Triglycerides Level 98 MG/DL (30-150) Cholesterol Level 54 MG/DL (< 200) LDL Cholesterol 5 mg/dL (<100) HDL Cholesterol 15 MG/DL (40-60) L Cholesterol/HDL Ratio 3.6 (3.3-4.4) Vitamin B12 Level Pending Folate Pending Thyroid Stimulating Hormone (TSH) 0.655 uiU/mL (0.358-3.740) Random Vancomycin Level Pending Height (Feet): 5 Height (Inches): 6.00 Weight (Pounds): 140 Medications Current Medications Medications (Trade) Dose Ordered Sig/Maxi Route PRN Reason Start Time Stop Time Status Last Admin Dose Admin Acetaminophen (Tylenol) 500 mg Q4H PRN ORAL Mild Pain (1-3)/ Temp 100.4 07/07/20 07:00 08/06/20 06:59 Acyclovir (Zovirax) 200 mg TuThSa ORAL 07/07/20 09:00 08/06/20 08:59 Allopurinol (Zyloprim) 100 mg DAILY ORAL 07/07/20 09:00 08/06/20 08:59 Atorvastatin Calcium (Lipitor) 10 mg BEDTIME ORAL 07/07/20 21:00 10/05/20 20:59 Calcium Acetate (Phoslo) 1,334 mg TIAC ORAL 07/07/20 11:30 10/05/20 11:29 Chlorhexidine Gluconate (Anne Marie-Hex 2%) 1 applic DAILY@2000 TOPIC 07/07/20 20:15 10/05/20 20:14 07/07/20 20:28 Epoetin Emery (Epoetin Emery(ESRD on dialysis)) 6,000 unit THU-THU-THU SUBQ 07/09/20 21:00 10/07/20 20:59 Fluconazole/ Sodium Chloride 100 ml @ 100 mls/hr Q24H IV 07/07/20 16:00 07/14/20 15:59 07/07/20 15:50 Gabapentin (Neurontin) 100 mg QHS ORAL 07/07/20 21:00 08/06/20 20:59 Lidocaine (Lidoderm 5% PATCH) 1 patch DAILY TDERMAL 07/07/20 09:00 10/05/20 08:59 Meropenem 500 mg/ Sodium Chloride 50 ml @ 100 mls/hr Q24HRS IVPB 07/07/20 15:00 07/12/20 14:59 07/07/20 15:50 Mirtazapine (Remeron) 15 mg BEDTIME ORAL 07/07/20 21:00 1/8/21 20:59 Norepinephrine Bitartrate 250 ml @ 0 mls/hr Q24H IV 07/07/20 09:30 07/10/20 09:24 07/07/20 22:34 Oxycodone HCl (Roxicodone) 5 mg Q12H PRN ORAL pain (8-10) 07/07/20 07:00 07/14/20 06:59 Pantoprazole (Protonix) 40 mg EVERY 12 HOURS ORAL 07/07/20 09:00 08/06/20 08:59 Sennosides (Senokot) 8.6 mg DAILY PRN ORAL Constipation 07/07/20 07:00 08/06/20 06:59 Vancomycin HCl (Vanco pharmacy to dose) 1 ea DAILY PRN MISC Per rx protocol 07/07/20 07:00 08/06/20 06:59 Vancomycin HCl (Vanco pharmacy to dose) 1 ea DAILY PRN MISC Per rx protocol 07/07/20 13:30 08/06/20 13:29 Vitamin B Complex (Vitamin B Complex) 1 tab DAILY ORAL 07/07/20 09:00 10/05/20 08:59 Assessment/Plan Assessment/Plan: Hematology Consultation REQ MD: Brijesh and Edmar Mcclain RFC: Ongoing thrombocytopenia, coagulopathy DOS: 07/08/20 HPI 80 years old male, resident of [facility], with PMH of ESRD, on HD, DM type 2, HTN, CHF with diastolic dysfunction hyperlipidemia , moderate aortic stenosis, recurrent left pleural effsuion, bladder cancer, T cell lymphoma, recently diagnosed, not on chemo yet, was sent for to ED for evaluation due to fever. Upon evaluation in ED patient was febrile , tachycardic, pulse oximetry was stable on room air Laboratory work-up revealed severe pancytopenia with WBC 0.1 , hemoglobin 7.5, platelet counts 32 . Chest x-ray revealed left infiltrate, possible effusion, In emergency department septic work-up initiated ,patient pancultured ,received fluid bolus, empiric antibiotics adn ASA. Patient noted to be hypotensive and subsequently transferred to ICU for further management for possible pressor Potential transfer to [facility] shortly with available bed Allergies: LATEX, NATURAL RUBBER (Verified Allergy, Unknown, 07/07/20) MITOMYCIN (Verified Allergy, Unknown, 07/07/20) Uncoded Allergies: MYTOMYCIN (Allergy, Unknown, 07/07/20) COVID-19 Screening Contact w/high risk pt: Yes Experienced COVID-19 symptoms?: Yes Coronavirus symptoms experienc: Fever (T>100.4F or >38C) Medication History Scheduled Acyclovir* (Acyclovir*), 200 MG ORAL 3XW, (Reported) Allopurinol* (Allopurinol*), 100 MG ORAL DAILY, (Reported) Amlodipine Besylate* (Amlodipine Besylate*), 5 MG ORAL DAILY, (Reported) Aspirin* (Aspirin*), 81 MG ORAL DAILY, (Reported) Calcium Acetate (Calcium Acetate), 667 MG PO TID, (Reported) Docusate Sodium* (Colace*), 100 MG ORAL TWICE A DAY, (Reported) Epoetin Emery (Procrit), 3,000 UNIT SUBQ 3XW, (Reported) Gabapentin* (Gabapentin*), 100 MG ORAL THREE TIMES A DAY, (Reported) Lidocaine Patch* (Lidoderm Patch*), 1 PATCH TOPIC DAILY, (Reported) Losartan Potassium* (Losartan Potassium*), 100 MG ORAL DAILY, (Reported) Mirtazapine* (Mirtazapine*), 15 MG ORAL BEDTIME, (Reported) Nut.tx,Imp.digest,Soy,Lact-Red (Pronourish), 237 ML PO BID, (Reported) Polyethylene Glycol 3350* (Polyethylene Glycol 3350*), 17 GM ORAL DAILY, (Reported) Acetaminophen* (Acetaminophen 325MG Tablet*), 500 MG ORAL Q4H PRN for For Pain, (Reported) Melatonin (Melatonin), 3 MG ORAL BEDTIME PRN for Insomnia, (Reported) Methocarbamol* (Robaxin-500*), 500 MG ORAL QID PRN for For Pain, (Reported) Miscellaneous Medications B Complx/C/Folic/Zinc/Cup Manning/E (Wzuycrgmrfsm-Vkwg-Lzzkgr Tab), 1 EACH PO, (Reported) Filgrastim (Neupogen), 300 MCG IJ, (Reported) Sennosides (Senna), 8.6 MG PO, (Reported) Resuscitation status Full code Advanced Directive on File Review of Systems ROS Narrative Physical Exam General Appearance: no apparent distress, lethargic Lines, tubes and drains: other - R chest dial catheter HEENT: normocephalic, atraumatic, anicteric Neck: non-tender, supple Respiratory/Chest: no accessory muscle use Cardiovascular/Chest: tachycardia - ST with BBB Abdomen: normal bowel sounds, non tender, soft Extremities: normal capillary refill Neurologic: abnormal gait, other - lethargic moves all extremities Musculoskeletal: atrophy - BLE Labs: labs reviewed Imaging: reviewed ASSESSMENT/RECS # T cell lymphoma -- recently diagnosed, though patient confused and difficult to obtain further hx from him, also with sepsis with shock --> no recent chemo but requires to initiate shortly as is aggressive lymphoma --> recommend transfer to [facility] for chemo/care to [facility] # Pancytopenia with Neutropenic fever requires chemo and also with sepsis, PNA --> neupogen prn as long as ANC>1000 is goal --> neupogen was given 07/07 --> wbc 0.1-->1.1-->4.6 --> hgb 7.5-->7.7 --> plt 32-->15-->14 --> transfuse as needed --> obtain records of Tcell Lymphoma from [facility] --> EPO started # PNA with Acute toxic metabolic encephalopathy --> likely related to infection --> ABX elda/vanc # Elevated troponin -> per cards eval # T cell lymphoma # ESRD, on HD # DM # Hx of HTN # Recurrent left pleural effusion # Diastolic CHF # Moderate aortic stenosis # HLD # Dvt ppx scds # Dispo transfer to [facility] for hloc given new lymphoma Appreciate consultation and dw Aung Oates MD Jul 08, 2020 07:34
[2020-07-08] MEDS ORDERED: D5 1/2NS 1,000 ML IV SCH (08:15)
[2020-07-08 08:22] LABS: WHITE BLOOD COUNT 0.9 K/UL (4.8-10.8)
[2020-07-08] MEDS ORDERED: Tubing IV Secondary IV ONE (08:40)
[2020-07-08] MEDS ORDERED: NS 275ml ONE (08:40)
[2020-07-08] MEDS ORDERED: Tubing Blood Filter IV ONE (08:40)
[2020-07-08] MEDS ORDERED: NS 500ML ONE (08:40)
[2020-07-08] MEDS: Allopurinol 100mg Tab ORAL SCH (09:00)
[2020-07-08] MEDS ORDERED: Varibar Honey 250ml MC PRN (09:00)
[2020-07-08] MEDS: Vitamin B Complex Tab ORAL SCH (09:00)
[2020-07-08] MEDS ORDERED: Varibar Thin Liquid powder 148gm MC PRN (09:00)
[2020-07-08] MEDS ORDERED: Varibar Nectar 240ml MC PRN (09:00)
[2020-07-08] MEDS ORDERED: Varibar Pudding 230ml MC PRN (09:00)
--- NOTE | 2020-07-08 09:38 | NUR ---
NURSE NOTES: LATE ENTRY: CALLED MD. DILL REGARDING PT VOMITING EPISODE X1, GREEN BILE. RECEIVED ORDER FOR ZOFRAN 4MG IV Q4HR FOR N/V.
--- NOTE | 2020-07-08 09:57 | Pulmonolgy Critical Care Note ---
IvánGiovanna TREATING AND PUMPING SUPERVISOR 07/08/20 0957: Critical Care - Asmt/Plan Assessment/Plan: ASSESSMENT sepsis with shock GN Bacteremia PNA Neutropenic fever Acute toxic metabolic encephalopathy Elevated troponin, likely due to demand - due to severe pancytopenia and sepsis Severe pancytopenia T cell lymphoma ESRD, on HD DM type 2 with hypoglycemia Hx of HTN Recurrent left pleural effusio, s/p VATS with decortication and RCHOP CHF with rEF 40-45% Severe pulmonary HTN Severe Moderate aortic stenosis HLD Bladder Ca, s/p BCG latent TB, PLAN OF CARE ICU now on Levophed, titrate to keep mean arterial BP > 65 closely monitor hemodynamic status BCX + GNR abx, per ID recs -> Meropenem, Vanco, Fluconazole fup with cx ID consult appreciated serial troponin minimally elevated cardio eval appreciated elevated troponin likelyl due to demand ischemia 2 to sepsis and severe pancytopenia ECHO with rEF 40-45%, severe pulmonary HTN and severe O2 titrate to keep sat above 92% fup with CXR s/p Neupogen x1, 1 u PLT and 1 u PRBC counts still low heme seen this am, discussed with Dr Monroe : Granix x 1 now and transfuse with additional unit of plateletpheresis HD as per nephro with close monitoring of volumes and renal parameters Venous Duplex BLE SCD if NGT plan to transfer to [facility] for a higher level of care when stable for transfer monitor BS, check HgA1c, IVF with dextrose recent hospitalization for left loculated effusion c/b left hemothorax , s/p VATS and decortication; underwent [facility] 06/29 case discussed and evaluated by supervising physician Critical Care - Objective Last 24 Hour Vital Signs Date Time Temp Pulse Resp B/P (MAP) Pulse Ox O2 Delivery O2 Flow Rate FiO2 07/08/20 07:00 136 23 128/86 (100) 99 07/08/20 06:30 139 20 98/65 (76) 100 07/08/20 06:00 116 22 106/65 (79) 100 07/08/20 05:30 116 21 100/65 (77) 99 07/08/20 05:00 140 20 105/69 (81) 100 07/08/20 04:30 143 25 111/74 (86) 99 07/08/20 04:00 Nasal Cannula 4.0 07/08/20 04:00 139 07/08/20 04:00 98.9 113 20 119/78 (92) 100 07/08/20 03:30 139 22 112/70 (84) 100 07/08/20 03:00 138 21 114/84 (94) 100 07/08/20 02:30 137 16 109/82 (91) 100 07/08/20 02:00 116 24 119/75 (90) 100 07/08/20 01:30 120 24 117/74 (88) 100 07/08/20 01:00 119 25 116/73 (87) 100 07/08/20 00:30 111 19 102/82 (89) 99 07/08/20 00:00 98.8 142 24 112/70 (84) 99 07/08/20 00:00 Nasal Cannula 4.0 07/08/20 00:00 143 07/07/20 23:30 143 26 125/87 (100) 100 07/07/20 23:00 126 29 115/75 (88) 100 07/07/20 22:34 111/75 07/07/20 22:30 117 22 94/60 (71) 100 07/07/20 22:00 137 24 98/69 (79) 100 07/07/20 21:30 142 25 107/80 (89) 100 07/07/20 21:00 139 21 103/73 (83) 100 07/07/20 20:30 139 25 105/72 (83) 100 07/07/20 20:00 126 07/07/20 20:00 98.5 140 20 107/75 (86) 100 07/07/20 20:00 Nasal Cannula 4.0 07/07/20 19:30 124 25 121/75 (90) 100 07/07/20 19:00 122 25 102/86 (91) 100 07/07/20 18:00 122 26 95/64 (74) 99 07/07/20 17:00 145 30 120/76 (91) 96 07/07/20 16:00 122 28 68/47 (54) 96 07/07/20 16:00 Nasal Cannula 4.0 07/07/20 16:00 121 07/07/20 15:09 97.1 07/07/20 15:00 120 28 114/54 (74) 98 07/07/20 14:00 120 28 97/65 (76) 98 07/07/20 13:30 118 27 85/51 (62) 98 07/07/20 13:00 116 27 83/51 (62) 97 07/07/20 12:30 149 27 127/63 (84) 97 07/07/20 12:00 2.0 07/07/20 12:00 97.4 150 26 114/52 (72) 100 07/07/20 12:00 120 07/07/20 12:00 Nasal Cannula 4.0 07/07/20 11:30 150 26 114/52 (72) 100 07/07/20 11:00 120 24 103/49 (67) 100 07/07/20 10:30 119 23 84/42 (56) 100 07/07/20 10:00 121 20 145/89 (107) 97 07/07/20 10:00 53/45 Objective: General Appearance: no apparent distress, more awake, confused Lines, tubes and drains: R chest dual lumen catheter, R AV fistula + bruit/thrill HEENT: normocephalic, atraumatic, anicteric Neck: non-tender, supple Respiratory/Chest: no accessory muscle use, decreased breath sounds Cardiovascular/Chest: tachycardia - ST with BBB Abdomen: normal bowel sounds, non tender, soft Extremities: normal capillary refill Neurologic: abnormal gait, moves all extremities, awake, but confused Musculoskeletal: atrophy - BLE Micro: Microbiology Date/Time Source Procedure Growth Status 07/07/20 00:30 Blood Blood Culture - Preliminary Gram Negative Judson Resulted 07/07/20 00:15 Nasopharynx SARS-CoV-2 RdRp Gene Assay - Final Complete 07/07/20 00:15 Blood Blood Culture - Preliminary Gram Negative Judson Resulted Accucheck: 24 Critical Care - Subjective ROS Limited/Unobtainable: Yes Interval Events: fevers resolved more awake, but confused on Levophed received Neupogen 1 u PRBC and 1 u PLT WBC this am O.9, PLT 14 Hgb/Hct 7.7/ 23.6 glucose was low no signs of resp distress, on O2 via NC Condition: critical IV Access: central - L subclavian catehter EKG Rhythm: Sinus Tachycardia Drips: Levophed 2 mcg/min I&O: Intake and Output 07/07/20 07/08/20 19:00 07:00 Intake Total 1643.0 ml 227.25 ml Output Total 65 ml 40 ml Balance 1578.0 ml 187.25 ml Intake IV Total 1379.0 ml 227.25 ml Blood Product 264 ml Output Urine Total 65 ml 40 ml Dannie Mcclain MD 07/08/202048: Critical Care - Asmt/Plan Assessment/Plan: Patient seen and examined with TREATING AND PUMPING SUPERVISOR and the above formulated assessment and plan. Time Spent (Minutes): 40 - cc Giovanna Minor NP Jul 08, 2020 09:57 Dannie Mcclain MD Jul 08, 2020 20:49
[2020-07-08] MEDS ORDERED: Vancomycin 1gm/D5W 275ml IVPB ONE ×2 (10:00)
--- NOTE | 2020-07-08 10:14 | NUR ---
NURSE NOTES: tech here to do us of abdomen. pt administered Zofran for vomiting episode. [id number].
--- NOTE | 2020-07-08 11:09 | NUR ---
NURSE NOTES: Called CM to inquire about HLOC/transfer to [facility]. CM will follow up and call ICU re: status of transfer.
--- NOTE | 2020-07-08 11:11 | NUR ---
TRAVEL PROFESSIONAL NOTES PLACED A CALL TO [facility], SPOKE WITH NANCY, NO BED AVAILABLE AT THIS TIME. ONCE BED BECOMES AVAILABLE SHE WILL CALL THE UNIT.
[2020-07-08] MEDS ORDERED: NovoLOG Insulin Flexpen SUBQ SCH (11:30)
[2020-07-08] MEDS: Norepinephrine 4mg/NS Premix 250 ML IV SCH ×2 (11:55→20:07)
[2020-07-08] MEDS ORDERED: TBO-Filgrastim 300 mcg/0.5ml SQ ONE (12:00)
--- NOTE | 2020-07-08 12:15 | NUR ---
NURSE NOTES: LATE ENTRY; PT IN BED. RESTLESS. PT CONFUSED. LABORED BREATHING NOTED. SATING 80'S. PT FOUND WITH NC OFF. REORENTED PT. HOB>30. LUNG SOUNDS DIMINISHED. ORAL CARE PROVIDED. PT NPO. ABDOMEN DISTENDED, ROUND. BOWEL SOUNDS HYPOACTIVE. PT HAD BM, PT CLEANED. BILATERAL RADIAL PULSES WEAK. RT AV GRAFT, LT SUBCLAVIAN FLUIDS LEVOPHED AT 6MCG/KG/MIN. D10 AT 50ML/HR. NEUTROPENIC PRECAUTIONS IN PLACE. CALL LIGHT IN REACH, BED ALARM ON. SIDE RAILS X2. WILL CONTINUE TO MONITOR PT.
[2020-07-08] MEDS ORDERED: TBO-Filgrastim 480 mcg/0.8ml SQ ONE (12:30)
--- NOTE | 2020-07-08 13:03 | Nephrology Progress Note ---
Assessment/Plan Problem List: (1) ESRD (end stage renal disease) on dialysis (2) Thrombocytopenia (3) Leukopenia (4) Anemia (5) Elevated troponin (6) Shock (7) Bilateral pleural effusion Assessment Presents with hypotension, sepsis, pancytopenia Has evidence of pneumonia Non-ST elevation HI History of lymphoma and recurrent left pleural effusion LVH diastolic CHF moderate aortic stenosis and hypertension Secondary hyperparathyroidism hypocalcemia Nby-ypvwyee-xaeunwyko diabetes mellitus Hyperlipemia History of recurrent bladder cancer Protein calorie malnutrition Hyperuricemia Plan July 08: Patient was dialyzed yesterday. Patient hypoglycemic today. Labs reviewed. Has pancytopenia. Medication list reviewed. Hemodialysis again tomorrow. Dextrose 10% 50 cc an hour ordered. Continue to monitor blood sugar. Stop sliding scale insulin. July 07: Dialysis to correct electrolyte abnormalities and uremic symptoms Hem Onc , ID, pulmonary follow-up Monitor renal parameters, electrolytes, uric acid Monitor blood sugar while n.p.o. Per orders Subjective ROS Limited/Unobtainable: Yes Objective Objective Last 24 Hour Vital Signs Date Time Temp Pulse Resp B/P (MAP) Pulse Ox O2 Delivery O2 Flow Rate FiO2 07/08/20 12:15 110 31 102/63 (76) 100 07/08/20 12:00 Nasal Cannula 4.0 07/08/20 12:00 99.0 110 32 95/65 (75) 100 07/08/20 11:55 118/56 07/08/20 11:45 115 29 118/56 (76) 86 07/08/20 11:30 113 30 113/73 (86) 99 07/08/20 11:15 111 30 99/61 (74) 97 07/08/20 11:00 110 25 96/62 (73) 100 07/08/20 10:45 112 24 99/77 (84) 98 07/08/20 10:30 110 28 96/58 (71) 99 07/08/20 10:15 112 30 94/57 (69) 88 07/08/20 10:00 111 32 93/59 (70) 74 07/08/20 09:45 111 25 85/56 (66) 99 07/08/20 09:18 2.0 07/08/20 09:15 112 23 89/51 (64) 94 07/08/20 09:00 112 28 91/57 (68) 92 07/08/20 08:45 111 30 122/97 (105) 96 07/08/20 08:30 111 30 125/74 (91) 93 07/08/20 08:24 112 30 85/46 (59) 64 07/08/20 08:15 112 25 65/49 (54) 84 07/08/20 08:00 Nasal Cannula 4.0 07/08/20 08:00 99.0 136 31 94/65 (75) 89 07/08/20 07:00 136 23 128/86 (100) 99 07/08/20 06:30 139 20 98/65 (76) 100 07/08/20 06:00 116 22 106/65 (79) 100 07/08/20 05:30 116 21 100/65 (77) 99 07/08/20 05:00 140 20 105/69 (81) 100 07/08/20 04:30 143 25 111/74 (86) 99 07/08/20 04:00 Nasal Cannula 4.0 07/08/20 04:00 139 07/08/20 04:00 98.9 113 20 119/78 (92) 100 07/08/20 03:30 139 22 112/70 (84) 100 07/08/20 03:00 138 21 114/84 (94) 100 07/08/20 02:30 137 16 109/82 (91) 100 07/08/20 02:00 116 24 119/75 (90) 100 07/08/20 01:30 120 24 117/74 (88) 100 07/08/20 01:00 119 25 116/73 (87) 100 07/08/20 00:30 111 19 102/82 (89) 99 07/08/20 00:00 98.8 142 24 112/70 (84) 99 07/08/20 00:00 Nasal Cannula 4.0 07/08/20 00:00 143 07/07/20 23:30 143 26 125/87 (100) 100 07/07/20 23:00 126 29 115/75 (88) 100 07/07/20 22:34 111/75 07/07/20 22:30 117 22 94/60 (71) 100 07/07/20 22:00 137 24 98/69 (79) 100 07/07/20 21:30 142 25 107/80 (89) 100 07/07/20 21:00 139 21 103/73 (83) 100 07/07/20 20:30 139 25 105/72 (83) 100 07/07/20 20:00 126 07/07/20 20:00 98.5 140 20 107/75 (86) 100 07/07/20 20:00 Nasal Cannula 4.0 07/07/20 19:30 124 25 121/75 (90) 100 07/07/20 19:00 122 25 102/86 (91) 100 07/07/20 18:00 122 26 95/64 (74) 99 07/07/20 17:00 145 30 120/76 (91) 96 07/07/20 16:00 122 28 68/47 (54) 96 07/07/20 16:00 Nasal Cannula 4.0 07/07/20 16:00 121 07/07/20 15:09 97.1 07/07/20 15:00 120 28 114/54 (74) 98 07/07/20 14:00 120 28 97/65 (76) 98 07/07/20 13:30 118 27 85/51 (62) 98 Intake and Output 07/07/20 07/08/20 19:00 07:00 Intake Total 1643.0 ml 227.25 ml Output Total 65 ml 40 ml Balance 1578.0 ml 187.25 ml Intake IV Total 1379.0 ml 227.25 ml Blood Product 264 ml Output Urine Total 65 ml 40 ml Laboratory Tests 07/07/20 14:30: Lactic Acid Level 3.70H 07/07/20 21:40: Lactic Acid Level 3.50H 07/07/20 23:30: Lactic Acid Level 2.50H 07/08/20 06:00: Lactic Acid Level 1.50, White Blood Count 0.9*L, Red Blood Count 3.04L, Hemoglobin 7.7L, Hematocrit 23.6L, Mean Corpuscular Volume 78L, Mean Corpuscular Hemoglobin 25.3L, Mean Corpuscular Hemoglobin Concent 32.5, Red Cell Distribution Width 17.2H, Platelet Count 14L, Mean Platelet Volume 12.5H, Neutrophils (%) (Auto) , Lymphocytes (%) (Auto) , Monocytes (%) (Auto) , Eosinophils (%) (Auto) , Basophils (%) (Auto) , Differential Total Cells Counted 100, Neutrophils % (Manual) 67, Lymphocytes % (Manual) 14L, Monocytes % (Manual) 9, Eosinophils % (Manual) 0, Basophils % (Manual) 0, Band Neutrophils 10H, Platelet Estimate DecreasedL, Platelet Morphology Normal, Hypochromasia 1+, Anisocytosis 2+, Sodium Level 138, Potassium Level 5.0, Chloride Level 100, Carbon Dioxide Level 23, Anion Gap 15, Blood Urea Nitrogen 72H, Creatinine 5.3H, Estimat Glomerular Filtration Rate 10.5, Glucose Level 35*L, Hemoglobin A1c 6.2H , Uric Acid 3.2, Calcium Level 7.8L, Phosphorus Level 6.0H, Magnesium Level 2.0, Iron Level 14L, Total Iron Binding Capacity 90L, Percent Iron Saturation 16, Unsaturated Iron Binding 76L, Ferritin > 2000H, Total Bilirubin 0.9, Gamma Glutamyl Transpeptidase 62, Aspartate Amino Transf (AST/SGOT) 65H, Alanine Aminotransferase (ALT/SGPT) 41, Alkaline Phosphatase 94, Ammonia 14, Troponin I 0.704H, C-Reactive Protein, Quantitative 67.1H, Pro-B-Type Natriuretic Peptide > 80233Q, Total Protein 5.5L, Albumin 1.7L, Globulin 3.8, Albumin/Globulin Ratio 0.4L, Triglycerides Level 98, Cholesterol Level 54, LDL Cholesterol 5, HDL Cholesterol 15L, Cholesterol/HDL Ratio 3.6, Vitamin B12 Level > 2000H, Folate 64.0H, Thyroid Stimulating Hormone (TSH) 0.655, Random Vancomycin Level 9.7, HIV (1&2) Antibody Rapid Negative 07/08/20 10:56: POC Whole Blood Glucose [Pending] Height (Feet): 5 Height (Inches): 6.00 Weight (Pounds): 140 General Appearance: lethargic, confused Cardiovascular: tachycardia Respiratory/Chest: decreased breath sounds Abdomen: distended Rome Jiang MD Jul 08, 2020 13:03
--- NOTE | 2020-07-08 13:13 | NUR ---
NURSE NOTES: LATE ENTRY: TECH HERE TO DO DUPLEX OF EXTREMITIES.
--- NOTE | 2020-07-08 13:32 | NUR ---
NURSE NOTES: LATE ENTRY: CALLED DAIJA Ribeiro SPOKE WITH CALL REP ACACIA. Quintin ORDER FOR 07/09/2020.
[2020-07-08] MEDS: Dextrose 10% 1,000 ML IV SCH (14:23)
--- NOTE | 2020-07-08 16:36 | NUR ---
NURSE NOTES: 142 Addendum: 07/08/20 at 1956 by Silvina Hammonds RN DIXIE MATAMOROS
--- NOTE | 2020-07-08 17:00 | NUR ---
NURSE NOTES: LATE ENTRY: MD MAI HERE TO SEE PT. INFORMED OF LEVOPHED DRIP. ST ON MONITOR. PT TROPONIN TRENDING 0.704. RTBBB ON EKG. NO NEW ORDERS.
--- NOTE | 2020-07-08 17:57 | Surgery Progress Note ---
Surgery Progress Note Subjective Symptoms: worse Additional Comments heme input noted labs worse exam stable ill appearing in icu Objective Last 24 Hour Vital Signs Date Time Temp Pulse Resp B/P (MAP) Pulse Ox O2 Delivery O2 Flow Rate FiO2 07/08/20 17:00 105 25 107/63 (78) 93 07/08/20 16:45 105 30 92/54 (67) 96 07/08/20 16:30 102 29 98/56 (70) 98 07/08/20 16:15 103 30 92/56 (68) 92 07/08/20 16:00 Nasal Cannula 4.0 07/08/20 16:00 98.8 102 27 96/54 (68) 91 07/08/20 14:45 106 26 98/60 (73) 99 07/08/20 14:30 106 32 102/62 (75) 100 07/08/20 14:15 103 29 81/46 (58) 97 07/08/20 14:00 106 34 87/57 (67) 97 07/08/20 13:45 106 30 79/56 (64) 93 07/08/20 13:30 107 28 94/56 (69) 95 07/08/20 13:15 109 31 99/57 (71) 99 07/08/20 13:00 108 30 82/52 (62) 97 07/08/20 12:15 110 31 102/63 (76) 100 07/08/20 12:00 Nasal Cannula 4.0 07/08/20 12:00 99.0 110 32 95/65 (75) 100 07/08/20 12:00 110 07/08/20 11:55 118/56 07/08/20 11:45 115 29 118/56 (76) 86 07/08/20 11:30 113 30 113/73 (86) 99 07/08/20 11:15 111 30 99/61 (74) 97 07/08/20 11:00 110 25 96/62 (73) 100 07/08/20 10:45 112 24 99/77 (84) 98 07/08/20 10:30 110 28 96/58 (71) 99 07/08/20 10:15 112 30 94/57 (69) 88 07/08/20 10:00 111 32 93/59 (70) 74 07/08/20 09:45 111 25 85/56 (66) 99 07/08/20 09:18 2.0 07/08/20 09:15 112 23 89/51 (64) 94 07/08/20 09:00 112 28 91/57 (68) 92 07/08/20 08:45 111 30 122/97 (105) 96 07/08/20 08:30 111 30 125/74 (91) 93 07/08/20 08:24 112 30 85/46 (59) 64 07/08/20 08:15 112 25 65/49 (54) 84 07/08/20 08:00 115 07/08/20 08:00 Nasal Cannula 4.0 07/08/20 08:00 99.0 136 31 94/65 (75) 89 07/08/20 07:00 136 23 128/86 (100) 99 07/08/20 06:30 139 20 98/65 (76) 100 07/08/20 06:00 116 22 106/65 (79) 100 07/08/20 05:30 116 21 100/65 (77) 99 07/08/20 05:00 140 20 105/69 (81) 100 07/08/20 04:30 143 25 111/74 (86) 99 07/08/20 04:00 Nasal Cannula 4.0 07/08/20 04:00 139 07/08/20 04:00 98.9 113 20 119/78 (92) 100 07/08/20 03:30 139 22 112/70 (84) 100 07/08/20 03:00 138 21 114/84 (94) 100 07/08/20 02:30 137 16 109/82 (91) 100 07/08/20 02:00 116 24 119/75 (90) 100 07/08/20 01:30 120 24 117/74 (88) 100 07/08/20 01:00 119 25 116/73 (87) 100 07/08/20 00:30 111 19 102/82 (89) 99 07/08/20 00:00 98.8 142 24 112/70 (84) 99 07/08/20 00:00 Nasal Cannula 4.0 07/08/20 00:00 143 07/07/20 23:30 143 26 125/87 (100) 100 07/07/20 23:00 126 29 115/75 (88) 100 07/07/20 22:34 111/75 07/07/20 22:30 117 22 94/60 (71) 100 07/07/20 22:00 137 24 98/69 (79) 100 07/07/20 21:30 142 25 107/80 (89) 100 07/07/20 21:00 139 21 103/73 (83) 100 07/07/20 20:30 139 25 105/72 (83) 100 07/07/20 20:00 126 07/07/20 20:00 98.5 140 20 107/75 (86) 100 07/07/20 20:00 Nasal Cannula 4.0 07/07/20 19:30 124 25 121/75 (90) 100 07/07/20 19:00 122 25 102/86 (91) 100 07/07/20 18:00 122 26 95/64 (74) 99 I&O Intake and Output 07/07/20 07/08/20 19:00 07:00 Intake Total 1643.0 ml 227.25 ml Output Total 65 ml 40 ml Balance 1578.0 ml 187.25 ml Intake IV Total 1379.0 ml 227.25 ml Blood Product 264 ml Output Urine Total 65 ml 40 ml Cardiovascular: RSR Respiratory: decreased breath sounds Abdomen: non-tender, present bowel sounds Extremities: no edema, no tenderness, no cyanosis Laboratory Tests Test 07/07/20 21:40 07/07/20 23:30 07/08/20 06:00 07/08/20 10:56 Lactic Acid Level 3.50 mmol/L (0.4-2.0) H 2.50 mmol/L (0.66-2.22) H 1.50 mmol/L (0.4-2.0) White Blood Count 0.9 K/UL (4.8-10.8) *L Red Blood Count 3.04 M/UL (4.70-6.10) L Hemoglobin 7.7 G/DL (14.2-18.0) L Hematocrit 23.6 % (42.0-52.0) L Mean Corpuscular Volume 78 FL (80-99) L Mean Corpuscular Hemoglobin 25.3 PG (27.0-31.0) L Mean Corpuscular Hemoglobin Concent 32.5 G/DL (32.0-36.0) Red Cell Distribution Width 17.2 % (11.6-14.8) H Platelet Count 14 K/UL (150-450) L Mean Platelet Volume 12.5 FL (6.5-10.1) H Neutrophils (%) (Auto) % (45.0-75.0) Lymphocytes (%) (Auto) % (20.0-45.0) Monocytes (%) (Auto) % (1.0-10.0) Eosinophils (%) (Auto) % (0.0-3.0) Basophils (%) (Auto) % (0.0-2.0) Differential Total Cells Counted 100 Neutrophils % (Manual) 67 % (45-75) Lymphocytes % (Manual) 14 % (20-45) L Monocytes % (Manual) 9 % (1-10) Eosinophils % (Manual) 0 % (0-3) Basophils % (Manual) 0 % (0-2) Band Neutrophils 10 % (0-8) H Platelet Estimate Decreased L Platelet Morphology Normal Hypochromasia 1+ Anisocytosis 2+ Sodium Level 138 MMOL/L (136-145) Potassium Level 5.0 MMOL/L (3.5-5.1) Chloride Level 100 MMOL/L (98-107) Carbon Dioxide Level 23 MMOL/L (21-32) Anion Gap 15 mmol/L (5-15) Blood Urea Nitrogen 72 mg/dL (7-18) H Creatinine 5.3 MG/DL (0.55-1.30) H Estimat Glomerular Filtration Rate 10.5 mL/min (>60) Glucose Level 35 MG/DL (74-106) *L Hemoglobin A1c 6.2 % (4.3-6.0) H Uric Acid 3.2 MG/DL (2.6-7.2) Calcium Level 7.8 MG/DL (8.5-10.1) L Phosphorus Level 6.0 MG/DL (2.5-4.9) H Magnesium Level 2.0 MG/DL (1.8-2.4) Iron Level 14 ug/dL (50-175) L Total Iron Binding Capacity 90 ug/dL (250-450) L Percent Iron Saturation 16 % (15-50) Unsaturated Iron Binding 76 ug/dL (112-346) L Ferritin > 2000 NG/ML (8-388) H Total Bilirubin 0.9 MG/DL (0.2-1.0) Gamma Glutamyl Transpeptidase 62 U/L (5-85) Aspartate Amino Transf (AST/SGOT) 65 U/L (15-37) H Alanine Aminotransferase (ALT/SGPT) 41 U/L (12-78) Alkaline Phosphatase 94 U/L (46-116) Ammonia 14 umol/L (11-32) Troponin I 0.704 ng/mL (0.000-0.056) C-Reactive Protein, Quantitative 67.1 mg/dL (0.00-0.90) H Pro-B-Type Natriuretic Peptide > 63603 pg/mL (0-125) H Total Protein 5.5 G/DL (6.4-8.2) L Albumin 1.7 G/DL (3.4-5.0) L Globulin 3.8 g/dL Albumin/Globulin Ratio 0.4 (1.0-2.7) L Triglycerides Level 98 MG/DL (30-150) Cholesterol Level 54 MG/DL (< 200) LDL Cholesterol 5 mg/dL (<100) HDL Cholesterol 15 MG/DL (40-60) L Cholesterol/HDL Ratio 3.6 (3.3-4.4) Vitamin B12 Level > 2000 PG/ML (193-986) H Folate 64.0 NG/ML (8.6-58.9) H Thyroid Stimulating Hormone (TSH) 0.655 uiU/mL (0.358-3.740) Random Vancomycin Level 9.7 ug/mL HIV (1&2) Antibody Rapid Negative (NEGATIVE) POC Whole Blood Glucose Pending Test 07/08/20 16:36 POC Whole Blood Glucose 142 MG/DL (74-106) H Plan Problems: (1) Anemia (2) Leukopenia (3) Thrombocytopenia (4) Sepsis Assessment & Plan: 80M in ICU leukopenia, lactic acidosis, fevers, thrombocytopenia, renal insufficiency, neutropenia. do not recommend left wall catheter removal at this time line does not seem infected and would await blood cultures and treat with abx high risk for bleeding from line removal and new placement fistula okay, HD as per renal no acute surgical intervention at this time will monitor closely and follow with exam cxr noted abx as per ID heme input trend labs diet DAILY ESTIMATED NEEDS: Needs based on ESRD + HD, CA/ 54.5kg 30-35 kcals/kg 3902-4582 total kcals 1.2-1.8 g protein/kg 65-98 g total protein Fluids per MD NUTRITION DIAGNOSIS: * Swallowing difficulty R/T dysphagia, lethargy as evidenced by w/ an order for NGT insertion, NPO at this time. 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 ENTERAL NUTRITION RECOMMENDATIONS: W/ hemodynamic stability: Nepro @ 40ml/hr x 24 hrs to provide 960ml, 1728kcal, 78g prot, 698ml free water * FEED W/ HEMODYNAMIC STABILITY -> initiate Nepro @ 10ml/hr x 6hrs, advance 10ml q 4-6 hrs as tolerated to goal rate -> HOB over 30 degrees/ water flush per MD WITHOUT HEMODYNAMIC STABILITY, if able to keep HOB >30 degrees, rec trophic feeding of Nepro @ 5-10ml/hr ADDITIONAL RECOMMENDATIONS: * Per SNF: HT=62" [id number] (06/29/20), daily calibrated bedscale wt * Monitor hemodynamic stability: "Levo on standby" at this time * Monitor lytes (K 5.3), check phos * TF rec as above when medically appropriate to feed and not safe for PO (5) Pneumonia (6) NSTEMI (non-ST elevated myocardial infarction) (7) ESRD (end stage renal disease) on dialysis (8) COVID-19 ruled out by laboratory testing (9) Shock (10) Elevated troponin Maurice Durán Jul 08, 2020 17:57
--- NOTE | 2020-07-08 18:17 | Cardiac Electrophysiology PN ---
Assessment/Plan Assessment/Plan 1. Troponin elevation. The levels are low and likely due to demand ischemia in this patient with severe anemia as well as hypotension. He is on Levophed. His echocardiogram also showed ejection fraction of 40% and severe aortic stenosis, aortic valve area of 0.6. 2. Hypotension, due to sepsis in this patient with leukopenia. The patient is on broad-spectrum IV antibiotic and Levophed 6 Mcg 3. Pancytopenia. S/P blood transfusion as well as platelet transfusion, likely due to chemotherapy. 4. Hyperlipidemia, on Lipitor. 5. Severe aortic stenosis, aortic valve area of 0.6. 6. Congestive heart failure, ejection fraction only 40%. EFREN RN Subjective Subjective Confused and agitated in ICU awaiting transfer to [facility]. On Levophed 6 Mcg Objective Last 24 Hour Vital Signs Date Time Temp Pulse Resp B/P (MAP) Pulse Ox O2 Delivery O2 Flow Rate FiO2 07/08/20 17:00 105 25 107/63 (78) 93 07/08/20 16:45 105 30 92/54 (67) 96 07/08/20 16:30 102 29 98/56 (70) 98 07/08/20 16:15 103 30 92/56 (68) 92 07/08/20 16:00 Nasal Cannula 4.0 07/08/20 16:00 98.8 102 27 96/54 (68) 91 07/08/20 14:45 106 26 98/60 (73) 99 07/08/20 14:30 106 32 102/62 (75) 100 07/08/20 14:15 103 29 81/46 (58) 97 07/08/20 14:00 106 34 87/57 (67) 97 07/08/20 13:45 106 30 79/56 (64) 93 07/08/20 13:30 107 28 94/56 (69) 95 07/08/20 13:15 109 31 99/57 (71) 99 07/08/20 13:00 108 30 82/52 (62) 97 07/08/20 12:15 110 31 102/63 (76) 100 07/08/20 12:00 Nasal Cannula 4.0 07/08/20 12:00 99.0 110 32 95/65 (75) 100 07/08/20 12:00 110 07/08/20 11:55 118/56 07/08/20 11:45 115 29 118/56 (76) 86 07/08/20 11:30 113 30 113/73 (86) 99 07/08/20 11:15 111 30 99/61 (74) 97 07/08/20 11:00 110 25 96/62 (73) 100 07/08/20 10:45 112 24 99/77 (84) 98 07/08/20 10:30 110 28 96/58 (71) 99 07/08/20 10:15 112 30 94/57 (69) 88 07/08/20 10:00 111 32 93/59 (70) 74 07/08/20 09:45 111 25 85/56 (66) 99 07/08/20 09:18 2.0 07/08/20 09:15 112 23 89/51 (64) 94 07/08/20 09:00 112 28 91/57 (68) 92 07/08/20 08:45 111 30 122/97 (105) 96 07/08/20 08:30 111 30 125/74 (91) 93 07/08/20 08:24 112 30 85/46 (59) 64 07/08/20 08:15 112 25 65/49 (54) 84 07/08/20 08:00 115 07/08/20 08:00 Nasal Cannula 4.0 07/08/20 08:00 99.0 136 31 94/65 (75) 89 07/08/20 07:00 136 23 128/86 (100) 99 07/08/20 06:30 139 20 98/65 (76) 100 07/08/20 06:00 116 22 106/65 (79) 100 07/08/20 05:30 116 21 100/65 (77) 99 07/08/20 05:00 140 20 105/69 (81) 100 07/08/20 04:30 143 25 111/74 (86) 99 07/08/20 04:00 Nasal Cannula 4.0 07/08/20 04:00 139 07/08/20 04:00 98.9 113 20 119/78 (92) 100 07/08/20 03:30 139 22 112/70 (84) 100 07/08/20 03:00 138 21 114/84 (94) 100 07/08/20 02:30 137 16 109/82 (91) 100 07/08/20 02:00 116 24 119/75 (90) 100 07/08/20 01:30 120 24 117/74 (88) 100 07/08/20 01:00 119 25 116/73 (87) 100 07/08/20 00:30 111 19 102/82 (89) 99 07/08/20 00:00 98.8 142 24 112/70 (84) 99 07/08/20 00:00 Nasal Cannula 4.0 07/08/20 00:00 143 07/07/20 23:30 143 26 125/87 (100) 100 07/07/20 23:00 126 29 115/75 (88) 100 07/07/20 22:34 111/75 07/07/20 22:30 117 22 94/60 (71) 100 07/07/20 22:00 137 24 98/69 (79) 100 07/07/20 21:30 142 25 107/80 (89) 100 07/07/20 21:00 139 21 103/73 (83) 100 07/07/20 20:30 139 25 105/72 (83) 100 07/07/20 20:00 126 07/07/20 20:00 98.5 140 20 107/75 (86) 100 07/07/20 20:00 Nasal Cannula 4.0 07/07/20 19:30 124 25 121/75 (90) 100 07/07/20 19:00 122 25 102/86 (91) 100 Intake and Output 07/07/20 07/08/20 19:00 07:00 Intake Total 1643.0 ml 227.25 ml Output Total 65 ml 40 ml Balance 1578.0 ml 187.25 ml Intake IV Total 1379.0 ml 227.25 ml Blood Product 264 ml Output Urine Total 65 ml 40 ml Laboratory Tests Test 07/07/20 21:40 07/07/20 23:30 07/08/20 06:00 07/08/20 10:56 Lactic Acid Level 3.50 mmol/L (0.4-2.0) H 2.50 mmol/L (0.66-2.22) H 1.50 mmol/L (0.4-2.0) White Blood Count 0.9 K/UL (4.8-10.8) *L Red Blood Count 3.04 M/UL (4.70-6.10) L Hemoglobin 7.7 G/DL (14.2-18.0) L Hematocrit 23.6 % (42.0-52.0) L Mean Corpuscular Volume 78 FL (80-99) L Mean Corpuscular Hemoglobin 25.3 PG (27.0-31.0) L Mean Corpuscular Hemoglobin Concent 32.5 G/DL (32.0-36.0) Red Cell Distribution Width 17.2 % (11.6-14.8) H Platelet Count 14 K/UL (150-450) L Mean Platelet Volume 12.5 FL (6.5-10.1) H Neutrophils (%) (Auto) % (45.0-75.0) Lymphocytes (%) (Auto) % (20.0-45.0) Monocytes (%) (Auto) % (1.0-10.0) Eosinophils (%) (Auto) % (0.0-3.0) Basophils (%) (Auto) % (0.0-2.0) Differential Total Cells Counted 100 Neutrophils % (Manual) 67 % (45-75) Lymphocytes % (Manual) 14 % (20-45) L Monocytes % (Manual) 9 % (1-10) Eosinophils % (Manual) 0 % (0-3) Basophils % (Manual) 0 % (0-2) Band Neutrophils 10 % (0-8) H Platelet Estimate Decreased L Platelet Morphology Normal Hypochromasia 1+ Anisocytosis 2+ Sodium Level 138 MMOL/L (136-145) Potassium Level 5.0 MMOL/L (3.5-5.1) Chloride Level 100 MMOL/L (98-107) Carbon Dioxide Level 23 MMOL/L (21-32) Anion Gap 15 mmol/L (5-15) Blood Urea Nitrogen 72 mg/dL (7-18) H Creatinine 5.3 MG/DL (0.55-1.30) H Estimat Glomerular Filtration Rate 10.5 mL/min (>60) Glucose Level 35 MG/DL (74-106) *L Hemoglobin A1c 6.2 % (4.3-6.0) H Uric Acid 3.2 MG/DL (2.6-7.2) Calcium Level 7.8 MG/DL (8.5-10.1) L Phosphorus Level 6.0 MG/DL (2.5-4.9) H Magnesium Level 2.0 MG/DL (1.8-2.4) Iron Level 14 ug/dL (50-175) L Total Iron Binding Capacity 90 ug/dL (250-450) L Percent Iron Saturation 16 % (15-50) Unsaturated Iron Binding 76 ug/dL (112-346) L Ferritin > 2000 NG/ML (8-388) H Total Bilirubin 0.9 MG/DL (0.2-1.0) Gamma Glutamyl Transpeptidase 62 U/L (5-85) Aspartate Amino Transf (AST/SGOT) 65 U/L (15-37) H Alanine Aminotransferase (ALT/SGPT) 41 U/L (12-78) Alkaline Phosphatase 94 U/L (46-116) Ammonia 14 umol/L (11-32) Troponin I 0.704 ng/mL (0.000-0.056) C-Reactive Protein, Quantitative 67.1 mg/dL (0.00-0.90) H Pro-B-Type Natriuretic Peptide > 97349 pg/mL (0-125) H Total Protein 5.5 G/DL (6.4-8.2) L Albumin 1.7 G/DL (3.4-5.0) L Globulin 3.8 g/dL Albumin/Globulin Ratio 0.4 (1.0-2.7) L Triglycerides Level 98 MG/DL (30-150) Cholesterol Level 54 MG/DL (< 200) LDL Cholesterol 5 mg/dL (<100) HDL Cholesterol 15 MG/DL (40-60) L Cholesterol/HDL Ratio 3.6 (3.3-4.4) Vitamin B12 Level > 2000 PG/ML (193-986) H Folate 64.0 NG/ML (8.6-58.9) H Thyroid Stimulating Hormone (TSH) 0.655 uiU/mL (0.358-3.740) Random Vancomycin Level 9.7 ug/mL HIV (1&2) Antibody Rapid Negative (NEGATIVE) POC Whole Blood Glucose Pending Test 07/08/20 16:36 POC Whole Blood Glucose 142 MG/DL (74-106) H Microbiology Date/Time Source Procedure Growth Status 07/07/20 00:30 Blood Blood Culture - Preliminary Gram Negative [facility]son Resulted 07/07/20 00:15 Nasopharynx SARS-CoV-2 RdRp Gene Assay - Final Complete 07/07/20 00:15 Blood Blood Culture - Preliminary Gram Negative [facility]son Resulted Objective HEAD AND NECK: No JVD. LUNGS: Decreased breath sounds. CARDIOVASCULAR: Regular S1 and S2 with no gallop or murmur, tachycardic. ABDOMEN: Soft. EXTREMITIES: 1+ pitting edema. Fredi Colindres MD Jul 08, 2020 18:17
--- NOTE | 2020-07-08 18:18 | NUR ---
NURSE NOTES: late entry: transfusing 1/1 unit platelets. vs: ax 99.2, hr 105, bp 115/68, RR 30, [id number]%. co witness complete. educated pt on s/s, unable to comprehend. will monitor closely.
--- NOTE | 2020-07-08 18:36 | NUR ---
NURSE NOTES: transfusing 1/1 units platelets. vs: 97.8 ax, hr 105, bp 130/73, 98%, rr 27. will continue to monitor pt.
[2020-07-08] MEDS ORDERED: Amikacin Rx to dose MISC PRN (18:45)
--- NOTE | 2020-07-08 18:48 | Infectious Diseases Prog Note ---
Assessment/Plan Assessment/Plan Full consult dictated: A) 1) gram neg bacteremia/? line infection, neutropenia, sepsis/shock, fevers 2) pancytopenia 3) esrd, hd, t-cell lymphoma, bladder ca, , effusion, dm, htn 4) hx chemo P) 1) meropenem, vancomycin, add amikacin 2) check cultures, labs and chest x-ray 3) d/w Dr. Mcclain 4) consider line change 5) CT scan abdomen and pelvis, when stable 6) critical 7) will f/u Subjective Constitutional: Reports: other - on pressors ; Denies: fever HEENT: Reports: congestion Respiratory: Reports: shortness of breath Gastrointestinal/Abdominal: Denies: nausea, vomiting Genitourinary: Reports: other - + bal, HD Allergies: Coded Allergies: LATEX, NATURAL RUBBER (Verified Allergy, Unknown, 07/07/20) MITOMYCIN (Verified Allergy, Unknown, 07/07/20) Uncoded Allergies: MYTOMYCIN (Allergy, Unknown, 07/07/20) Objective Last 24 Hour Vital Signs Date Time Temp Pulse Resp B/P (MAP) Pulse Ox O2 Delivery O2 Flow Rate FiO2 07/08/20 18:15 104 31 115/68 (84) 95 07/08/20 18:00 103 30 89/60 (70) 94 07/08/20 17:00 105 25 107/63 (78) 93 07/08/20 16:45 105 30 92/54 (67) 96 07/08/20 16:30 102 29 98/56 (70) 98 07/08/20 16:15 103 30 92/56 (68) 92 07/08/20 16:00 Nasal Cannula 4.0 07/08/20 16:00 98.8 102 27 96/54 (68) 91 07/08/20 14:45 106 26 98/60 (73) 99 07/08/20 14:30 106 32 102/62 (75) 100 07/08/20 14:15 103 29 81/46 (58) 97 07/08/20 14:00 106 34 87/57 (67) 97 07/08/20 13:45 106 30 79/56 (64) 93 07/08/20 13:30 107 28 94/56 (69) 95 07/08/20 13:15 109 31 99/57 (71) 99 07/08/20 13:00 108 30 82/52 (62) 97 07/08/20 12:15 110 31 102/63 (76) 100 07/08/20 12:00 Nasal Cannula 4.0 07/08/20 12:00 99.0 110 32 95/65 (75) 100 07/08/20 12:00 110 07/08/20 11:55 118/56 07/08/20 11:45 115 29 118/56 (76) 86 07/08/20 11:30 113 30 113/73 (86) 99 07/08/20 11:15 111 30 99/61 (74) 97 07/08/20 11:00 110 25 96/62 (73) 100 07/08/20 10:45 112 24 99/77 (84) 98 07/08/20 10:30 110 28 96/58 (71) 99 07/08/20 10:15 112 30 94/57 (69) 88 07/08/20 10:00 111 32 93/59 (70) 74 07/08/20 09:45 111 25 85/56 (66) 99 07/08/20 09:18 2.0 07/08/20 09:15 112 23 89/51 (64) 94 07/08/20 09:00 112 28 91/57 (68) 92 07/08/20 08:45 111 30 122/97 (105) 96 07/08/20 08:30 111 30 125/74 (91) 93 07/08/20 08:24 112 30 85/46 (59) 64 07/08/20 08:15 112 25 65/49 (54) 84 07/08/20 08:00 115 07/08/20 08:00 Nasal Cannula 4.0 07/08/20 08:00 99.0 136 31 94/65 (75) 89 07/08/20 07:00 136 23 128/86 (100) 99 07/08/20 06:30 139 20 98/65 (76) 100 07/08/20 06:00 116 22 106/65 (79) 100 07/08/20 05:30 116 21 100/65 (77) 99 07/08/20 05:00 140 20 105/69 (81) 100 07/08/20 04:30 143 25 111/74 (86) 99 07/08/20 04:00 Nasal Cannula 4.0 07/08/20 04:00 139 07/08/20 04:00 98.9 113 20 119/78 (92) 100 07/08/20 03:30 139 22 112/70 (84) 100 07/08/20 03:00 138 21 114/84 (94) 100 07/08/20 02:30 137 16 109/82 (91) 100 07/08/20 02:00 116 24 119/75 (90) 100 07/08/20 01:30 120 24 117/74 (88) 100 07/08/20 01:00 119 25 116/73 (87) 100 07/08/20 00:30 111 19 102/82 (89) 99 07/08/20 00:00 98.8 142 24 112/70 (84) 99 07/08/20 00:00 Nasal Cannula 4.0 07/08/20 00:00 143 07/07/20 23:30 143 26 125/87 (100) 100 07/07/20 23:00 126 29 115/75 (88) 100 07/07/20 22:34 111/75 07/07/20 22:30 117 22 94/60 (71) 100 07/07/20 22:00 137 24 98/69 (79) 100 07/07/20 21:30 142 25 107/80 (89) 100 07/07/20 21:00 139 21 103/73 (83) 100 07/07/20 20:30 139 25 105/72 (83) 100 07/07/20 20:00 126 07/07/20 20:00 98.5 140 20 107/75 (86) 100 07/07/20 20:00 Nasal Cannula 4.0 07/07/20 19:30 124 25 121/75 (90) 100 07/07/20 19:00 122 25 102/86 (91) 100 Height (Feet): 5 Height (Inches): 6.00 Weight (Pounds): 140 General Appearance: no acute distress HEENT: normocephalic, atraumatic, anicteric Respiratory/Chest: lungs clear, normal breath sounds, no respiratory distress Cardiovascular: normal rate, regular rhythm, no gallop/murmur Abdomen: normal bowel sounds, soft, non tender Microbiology Date/Time Source Procedure Growth Status 07/07/20 00:30 Blood Blood Culture - Preliminary Gram Negative Judson Resulted 07/07/20 00:15 Nasopharynx SARS-CoV-2 RdRp Gene Assay - Final Complete 07/07/20 00:15 Blood Blood Culture - Preliminary Gram Negative Judson Resulted Laboratory Tests Test 07/07/20 21:40 07/07/20 23:30 07/08/20 06:00 07/08/20 10:56 Lactic Acid Level 3.50 mmol/L (0.4-2.0) H 2.50 mmol/L (0.66-2.22) H 1.50 mmol/L (0.4-2.0) White Blood Count 0.9 K/UL (4.8-10.8) *L Red Blood Count 3.04 M/UL (4.70-6.10) L Hemoglobin 7.7 G/DL (14.2-18.0) L Hematocrit 23.6 % (42.0-52.0) L Mean Corpuscular Volume 78 FL (80-99) L Mean Corpuscular Hemoglobin 25.3 PG (27.0-31.0) L Mean Corpuscular Hemoglobin Concent 32.5 G/DL (32.0-36.0) Red Cell Distribution Width 17.2 % (11.6-14.8) H Platelet Count 14 K/UL (150-450) L Mean Platelet Volume 12.5 FL (6.5-10.1) H Neutrophils (%) (Auto) % (45.0-75.0) Lymphocytes (%) (Auto) % (20.0-45.0) Monocytes (%) (Auto) % (1.0-10.0) Eosinophils (%) (Auto) % (0.0-3.0) Basophils (%) (Auto) % (0.0-2.0) Differential Total Cells Counted 100 Neutrophils % (Manual) 67 % (45-75) Lymphocytes % (Manual) 14 % (20-45) L Monocytes % (Manual) 9 % (1-10) Eosinophils % (Manual) 0 % (0-3) Basophils % (Manual) 0 % (0-2) Band Neutrophils 10 % (0-8) H Platelet Estimate Decreased L Platelet Morphology Normal Hypochromasia 1+ Anisocytosis 2+ Sodium Level 138 MMOL/L (136-145) Potassium Level 5.0 MMOL/L (3.5-5.1) Chloride Level 100 MMOL/L (98-107) Carbon Dioxide Level 23 MMOL/L (21-32) Anion Gap 15 mmol/L (5-15) Blood Urea Nitrogen 72 mg/dL (7-18) H Creatinine 5.3 MG/DL (0.55-1.30) H Estimat Glomerular Filtration Rate 10.5 mL/min (>60) Glucose Level 35 MG/DL (74-106) *L Hemoglobin A1c 6.2 % (4.3-6.0) H Uric Acid 3.2 MG/DL (2.6-7.2) Calcium Level 7.8 MG/DL (8.5-10.1) L Phosphorus Level 6.0 MG/DL (2.5-4.9) H Magnesium Level 2.0 MG/DL (1.8-2.4) Iron Level 14 ug/dL (50-175) L Total Iron Binding Capacity 90 ug/dL (250-450) L Percent Iron Saturation 16 % (15-50) Unsaturated Iron Binding 76 ug/dL (112-346) L Ferritin > 2000 NG/ML (8-388) H Total Bilirubin 0.9 MG/DL (0.2-1.0) Gamma Glutamyl Transpeptidase 62 U/L (5-85) Aspartate Amino Transf (AST/SGOT) 65 U/L (15-37) H Alanine Aminotransferase (ALT/SGPT) 41 U/L (12-78) Alkaline Phosphatase 94 U/L (46-116) Ammonia 14 umol/L (11-32) Troponin I 0.704 ng/mL (0.000-0.056) C-Reactive Protein, Quantitative 67.1 mg/dL (0.00-0.90) H Pro-B-Type Natriuretic Peptide > 36096 pg/mL (0-125) H Total Protein 5.5 G/DL (6.4-8.2) L Albumin 1.7 G/DL (3.4-5.0) L Globulin 3.8 g/dL Albumin/Globulin Ratio 0.4 (1.0-2.7) L Triglycerides Level 98 MG/DL (30-150) Cholesterol Level 54 MG/DL (< 200) LDL Cholesterol 5 mg/dL (<100) HDL Cholesterol 15 MG/DL (40-60) L Cholesterol/HDL Ratio 3.6 (3.3-4.4) Vitamin B12 Level > 2000 PG/ML (193-986) H Folate 64.0 NG/ML (8.6-58.9) H Thyroid Stimulating Hormone (TSH) 0.655 uiU/mL (0.358-3.740) Random Vancomycin Level 9.7 ug/mL HIV (1&2) Antibody Rapid Negative (NEGATIVE) POC Whole Blood Glucose Pending Test 07/08/20 16:36 POC Whole Blood Glucose 142 MG/DL (74-106) H Current Medications Medications (Trade) Dose Ordered Sig/Maxi Route PRN Reason Start Time Stop Time Status Last Admin Dose Admin Acetaminophen (Tylenol) 500 mg Q4H PRN ORAL Mild Pain (1-3)/ Temp 100.4 07/07/20 07:00 08/06/20 06:59 Acyclovir (Zovirax) 200 mg TuThSa ORAL 07/07/20 09:00 08/06/20 08:59 Barium Sulfate (Varibar Honey) 250 ml NOW PRN MC RAD 07/08/20 09:00 07/11/20 08:49 Barium Sulfate (Varibar [place]) 240 ml NOW PRN MC RAD 07/08/20 09:00 07/11/20 08:49 Barium Sulfate (Varibar Pudding) 230 ml NOW PRN MC RAD 07/08/20 09:00 07/11/20 08:49 Barium Sulfate (Varibar Thin Liquid powder) 148 gm NOW PRN MC RAD 07/08/20 09:00 07/11/20 08:49 Calcium Acetate (Phoslo) 1,334 mg TIAC ORAL 07/07/20 11:30 10/05/20 11:29 Chlorhexidine Gluconate (Anne Marie-Hex 2%) 1 applic DAILY@2000 TOPIC 07/07/20 20:15 10/05/20 20:14 07/07/20 20:28 Dextrose 1,000 ml @ 50 mls/hr Q20H IV 07/08/20 14:00 08/07/20 13:59 07/08/20 14:23 Dextrose (Dextrose 50%) 25 ml Q30M PRN IV Hypoglycemia 07/08/20 08:15 10/06/20 08:14 07/08/20 11:13 Dextrose (Dextrose 50%) 50 ml Q30M PRN IV Hypoglycemia 07/08/20 08:15 10/06/20 08:14 Epoetin Emery (Epoetin Emery(ESRD on dialysis)) 6,000 unit THU- SUBQ 07/09/20 21:00 10/07/20 20:59 Fluconazole/ Sodium Chloride 100 ml @ 100 mls/hr Q24H IV 07/07/20 16:00 07/14/20 15:59 07/08/20 16:13 Gabapentin (Neurontin) 100 mg QHS ORAL 07/07/20 21:00 08/06/20 20:59 Lidocaine (Lidoderm 5% PATCH) 1 patch DAILY TDERMAL 07/07/20 09:00 10/05/20 08:59 Meropenem 500 mg/ Sodium Chloride 50 ml @ 100 mls/hr Q24HRS IVPB 07/07/20 15:00 07/12/20 14:59 07/08/20 16:12 Mirtazapine (Remeron) 15 mg BEDTIME ORAL 07/07/20 21:00 10/05/20 20:59 Norepinephrine Bitartrate 250 ml @ 0 mls/hr Q24H IV 07/07/20 09:30 07/10/20 09:24 07/08/20 11:55 Ondansetron HCl (Zofran) 4 mg Q4H PRN IVP Nausea & Vomiting 07/08/20 09:45 08/07/20 09:44 07/08/20 16:30 Oxycodone HCl (Roxicodone) 5 mg Q12H PRN ORAL pain (8-10) 07/07/20 07:00 07/14/20 06:59 Pantoprazole (Protonix) 40 mg EVERY 12 HOURS IVP 07/08/20 21:00 08/07/20 20:59 Sennosides (Senokot) 8.6 mg DAILY PRN ORAL Constipation 07/07/20 07:00 08/06/20 06:59 Vancomycin HCl (Vanco pharmacy to dose) 1 ea DAILY PRN MISC Per rx protocol 07/07/20 13:30 08/06/20 13:29 Vitamin B Complex (Vitamin B Complex) 1 tab DAILY ORAL 07/07/20 09:00 10/05/20 08:59 Leyda Jensen MD Jul 08, 2020 18:48
--- NOTE | 2020-07-08 19:30 | NUR ---
NURSE NOTES: Received report from Cassius RN. Patient in bed awake,alert to name, tachypneic Resp 33. HOB elevated. Currently patient receiving platelets. patient NPO. on 4 L oxygen via N/C instructed patient to keep the Oxygen on explained the importance v/s risk and benefits. Encouraged patient to verbalize needs, fears and Feelings to staff. Denies any pain or discomfort.Right upper arm AV shunt intact with +bruit and thrill, dressing intact. Left subclavian vipul cath intact infusing Levophed at 8mcg/min bp112/62.Neutropenic precaution maintained and observed. will continue plan of care.
[2020-07-08] MEDS ORDERED: Amikacin 450 MG in NS 110 ML IV ONE (20:00)
[2020-07-08] MEDS: Dyna-Hex 2% Top Sol 2oz TOPIC SCH (20:04)
[2020-07-08] MEDS: Pantoprazole Inj IVP SCH (20:07)
--- NOTE | 2020-07-08 20:20 | NUR ---
NURSE NOTES: transfused Platelets x1 no adverse reaction noted. no fever, no chills,no s/s of acute distress noted. call light within easy reach.
--- NOTE | 2020-07-08 22:00 | Consultation ---
DATE OF CONSULTATION: 07/08/2020 INFECTIOUS DISEASE CONSULTATION CONSULTING PHYSICIAN: Leyda Jensen MD. ATTENDING PHYSICIAN: Chase Coley MD. REFERRING PHYSICIAN: Dannie Mcclain MD. REASON FOR CONSULTATION: Gram-negative bacteremia, possible line infection, septic shock, fevers, and neutropenia. CHIEF COMPLAINT: The patient's chief complaint coming in the hospital is sepsis, fevers, septic shock. HISTORY OF PRESENT ILLNESS: This is an 80-year-old male who has history of multiple medical problems including history of T-cell lymphoma and bladder cancer. The patient also has pancytopenia. Per discussion with the nursing staff, who discussed with the attending, the patient has had chemotherapy. It is unclear when. The patient admitted to [facility] with septic shock requiring pressors in the ICU. Infectious Disease consultation is requested. Workup shows that he has gram-negatives in the blood and he has a port and a dialysis line, so he does have a dialysis line, I do not think he has a port. He has a fistula but he has a dialysis line that was present on admission. The patient was started on meropenem, vancomycin, and Diflucan yesterday. I saw the patient yesterday and today, I am going to change antibiotics to vancomycin, meropenem and amikacin for the gram-negative bacteremia, sepsis shock, possible line infection. He is a dialysis patient as discussed. The hemodialysis line came in on admission, has a subclavian on the left. He has been febrile and pancytopenic. MAR was noted. Orders were noted. Notes were reviewed. Case was discussed with RN. Case was discussed with Dr. Mcclain yesterday. The patient is being followed by Hematology-Oncology during this admission. There is gram-negative bacteria in the blood, the final identification is pending. REVIEW OF SYSTEMS: CONSTITUTIONAL: The patient is weak, but responsive. He currently is in the ICU. He has been having fevers and he is on pressors currently 6 mcg of norepinephrine. HEAD AND NECK: No head pain or neck pain. CARDIAC: He is on pressors. GASTROINTESTINAL: No nausea, vomiting, or diarrhea. GENITOURINARY: He has a Love. He is on hemodialysis. PULMONARY: He has mild shortness of breath with cough. SKIN: No rash. The patient has a left subclavian and a fistula. It is not clear if he has a port at this time. EXTREMITIES: No joint pain. NEUROLOGIC: No seizures. He has generalized weakness. No focal changes. PAST MEDICAL HISTORY: The patient has past medical history of end-stage renal disease, on hemodialysis. He has history of type 2 diabetes. He has history of hypertension, CHF, diastolic dysfunction, history of dyslipidemia, hyperlipidemia, history of aortic stenosis, history of pleural effusion, history of bladder cancer and T-cell lymphoma, and also recent chemo per discussion with nursing who discussed with Dr. Mcclain. He also has pancytopenia. ALLERGIES: Include latex and natural rubber, and mitomycin. No antibiotic allergies. SOCIAL HISTORY: Negative for smoking, alcohol, and drug abuse. FAMILY HISTORY: Noncontributory. There is no mention of exposure to tuberculosis or cancer. MEDICATIONS: Upon reviewing the MAR, he is on following medications. He is on Epogen, pantoprazole. He is on IV fluids, Zofran. He is on Remeron, gabapentin, chlorhexidine, Diflucan, vancomycin, and meropenem. I am going to change to vancomycin, meropenem, and amikacin per pharmacy dosing. He is on calcium acetate, norepinephrine, lidocaine, vitamin B, acyclovir prophylaxis I believe, oxycodone, acetaminophen, and Senokot. Outside medications noted and reconciliated. PHYSICAL EXAMINATION: VITAL SIGNS: Temperature maximum is 103.3 currently, pulse rate 104, respiratory rate 31, blood pressure 115/68. Saturation 95%. GENERAL: Alert and responsive, weak but is responsive. HEAD AND NECK: Oral exam, no thrush. Eyes, no icterus. Normocephalic. Neck is supple. No JVD. HEART: Regular. No gallop or murmur. He has 1/6 systolic murmur. He is tachycardic. ABDOMEN: Soft. Positive bowel sounds. Nontender. LUNGS: Few bilateral rhonchi. No rales, mostly clear. SKIN: No rash or dermatitis noted. He has a hemodialysis line and a fistula. MUSCULOSKELETAL: No effusions or contractures. Lower extremity exam without cellulitis. PERIPHERAL VASCULAR: No gangrene or cyanosis. GENITOURINARY: He has a Love. Decreased urine output. LINE SITES: Without phlebitis. NEUROLOGIC: Generalized weakness, responsive, nonfocal. LABORATORY DATA: Creatinine 5.3. LFTs noted. White count 0.9, hemoglobin 7.7, platelet count 14, and neutrophils 67%. UA was leukocyte esterase negative, 0 to 2 white cells. Cultures, blood cultures with gram-negative rods. COVID testing is negative. IMAGING STUDIES: Chest x-ray is pending. Also an echo is pending. I will order if not done. ASSESSMENT AND PLAN: 1. The patient has gram-negative bacteremia, possible line infection, rule out other source. The patient has neutropenic sepsis, fevers, septic shock. The patient is requiring pressors. UA is negative. A chest x-ray is pending. At this time, we will continue antibiotics, vancomycin, meropenem, and amikacin. Vancomycin for MRSA coverage with meropenem and vancomycin for gram-negative coverage. Continue vancomycin, meropenem, and amikacin for gram-negative bacteremia, and possible line infection, and also septic shock, neutropenic sepsis, and fevers. Check cultures, laboratories, and chest x-ray. Get echocardiogram for the history of aortic stenosis, rule out vegetation and endocarditis, even though this is most likely the gram-negative organism. Also, I would consider changing lines, especially dialysis line because he came in with it. Continue vancomycin, meropenem, and amikacin for now pending workup for the gram-negative sepsis and septic shock. 2. Pancytopenia, anemia, leukopenia, and thrombocytopenia. 3. Hematology-Oncology followup. 4. End-stage renal disease, on hemodialysis. Nephrology followup. 5. Diabetes. Blood sugar treatment per primary team. 6. Hypertension. The patient's blood pressure is low. 7. CHF. 8. Dyslipidemia, hyperlipidemia. 9. Aortic stenosis. 10. History of bladder cancer. 11. History of T-cell lymphoma. 12. History of using chemo. 13. Continue treatment per primary consultants. 14. Orders were noted and entered. 15. Allergies to latex, natural rubber, mitomycin 16. Social history is negative. 17. Family history is noncontributory. 18. MAR was noted. 19. Case was discussed with RN. 20. Case was discussed with Dr. Mcclain. 21. ICU care. 22. Critical condition. I will follow. Thank you for this consultation. Leyda Jensen M.D. DR: JASPER JOB#: [id number] CC: JAREK
[2020-07-08 22:09] LABS: HEMATOCRIT 22.3 % (42.0-52.0); HEMOGLOBIN 7.1 G/DL (14.2-18.0); MEAN CORPUSCULAR VOLUME 82 FL (80-99); PLATELET COUNT 27 K/UL (150-450); RED BLOOD COUNT 2.73 M/UL (4.70-6.10); RED CELL DISTRIBUTION WIDTH 19.6 % (11.6-14.8); WHITE BLOOD COUNT 4.6 K/UL (4.8-10.8)
--- NOTE | 2020-07-08 23:37 | NUR ---
NURSE NOTES: Zofran given for nausea, effective. HOB elevated.
[2020-07-09] VITALS (51 sets, daily range): BP systolic 78–134; BP diastolic 43–96
--- NOTE | 2020-07-09 01:00 | NUR ---
NURSE NOTES: Titrated Levophed to 10mcg/min bp 90/47.
--- NOTE | 2020-07-09 02:35 | NUR ---
NURSE NOTES: left message to Dr. Mcclain regrading CBC result.
[2020-07-09] MEDS: Norepinephrine 4mg/NS Premix 250 ML IV SCH ×4 (04:22→22:32)
--- NOTE | 2020-07-09 04:30 | NUR ---
NURSE NOTES: Bed bath given tolerated well. patient with x1 small brownish soft BM. tachypneic Resp 30. HOB elevated. denies any pain or discomfort, skin warm and dry to touch. no n/v, no diarrhea. call light within easy reach. Neutropenic precaution maintained and observed. will continue plan of care.
[2020-07-09 06:03] LABS: HEMATOCRIT 21.5 % (42.0-52.0); MEAN CORPUSCULAR VOLUME 80 FL (80-99); PLATELET COUNT 20 K/UL (150-450); RED BLOOD COUNT 2.71 M/UL (4.70-6.10); RED CELL DISTRIBUTION WIDTH 17.8 % (11.6-14.8); WHITE BLOOD COUNT 3.5 K/UL (4.8-10.8)
--- NOTE | 2020-07-09 06:18 | Diagnostic Imaging Report ---
EXAM: XR Chest, 1 View CLINICAL HISTORY: ALOC TECHNIQUE: Frontal view of the chest. COMPARISON: No previous studies. FINDINGS: Lungs: Hypoaeration of the right lung. Patchy airspace disease predominantly in the left mid lower lung zones. Mild central pulmonary vascular congestion. Pleural space: Small left pleural effusion. No pneumothorax. Heart: Cardiomegaly. Mediastinum: Unremarkable. Bones/joints: Osteopenia. Gentle levoscoliosis of the thoracolumbar spine. Tubes, lines and devices: Left subclavian catheter is noted in place with its tip at the distal superior vena cava, possibly the right atrium. Upper abdomen: Elevation of the right hemidiaphragm. IMPRESSION: 1. Hypoaeration of the right lung. 2. Elevation of the right hemidiaphragm. 3. Patchy airspace disease left mid lower lung zones possibly on the basis of atypical pneumonias. 4. Alternatively, finding may be on the basis of pulmonary edema. 5. Cardiomegaly left pleural effusion. 6. Clinical correlation is advised to assess for congestive heart failure. 7. Mild central pulmonary vascular congestion is noted. Findings are therefore most likely on the basis of congestive heart failure.
--- NOTE | 2020-07-09 06:19 | Diagnostic Imaging Report ---
EXAM: US Abdomen Complete CLINICAL HISTORY: ABD PAIN TECHNIQUE: Real-time ultrasound of the abdomen with image documentation. COMPARISON: None FINDINGS: Liver: Small echogenic foci in the liver are nonspecific and could represent small hemangiomas. Further evaluation could be performed with CT or MRI if clinically indicated. Liver measures 14.3 cm. Gallbladder: Probable small gallbladder polyps, the largest measuring up to 8 mm. Nonspecific mild prominence of the gallbladder wall. No pericholecystic fluid. Common bile duct: Unremarkable as visualized. No stones. No dilation. Pancreas: Pancreas is not visualized due to overlying bowel gas. Kidneys: Increased echogenicity of the right renal parenchyma is suggestive of medical renal disease. Left kidney and spleen could not be imaged due to lack of patient cooperation. Right kidney is atrophic, measuring 6.6 cm in length. No hydronephrosis or stone. Spleen: See above. Aorta: Visualized portions of the aorta are grossly unremarkable. Inferior vena cava: Visualized portions of the IVC are grossly unremarkable. Other vasculature: Patent main portal vein with normal directional flow. Pleural space: Small right pleural effusion incidentally noted. IMPRESSION: 1. Small echogenic foci in the liver are nonspecific and could represent small hemangiomas. Further evaluation could be performed with CT or MRI if clinically indicated. 2. Small right pleural effusion incidentally noted. 3. Increased echogenicity of the right renal parenchyma is suggestive of medical renal disease. Right renal atrophy. 4. Probable small gallbladder polyps, the largest measuring up to 8 mm. Nonspecific mild prominence of the gallbladder wall. No pericholecystic fluid. 5. Left kidney and spleen could not be imaged due to lack of patient cooperation.
--- NOTE | 2020-07-09 06:19 | Cardiology Report ---
APPROVED REPORT EXAM: Two-dimensional and M-mode echocardiogram with Doppler and color Doppler. INDICATION Arrhythmia M-Mode DIMENSIONS IVSd0.9 (0.7-1.1cm)Left Atrium (MM)3.1 (1.6-4.0cm) LVDd4.9 (3.5-5.6cm)Aortic Root2.8 (2.0-3.7cm) PWd1.0 (0.7-1.1cm)Aortic Cusp Exc.1.0 (1.5-2.0cm) IVSs1.3 cmEPSS0.3 (>1.0cm) LVDs3.7 (2.5-4.0cm) PWs1.0 cm <Conclusion> Technically difficult study due to pt's movement. Normal left ventricular chamber size. Mildly depressed systolic function, there is distal lateral wall hypokinesia. Left ventricular ejection fraction is estimated to be 40-45 %. Ischemic cardiomyopathy cannot be excluded. No evidence of left ventricular hypertrophy. No evidence of pericardial effusion. All other cardiac chamber sizes are within normal limits. Aortic valve calcification with decreased cusp excursion c/w aortic stenosis. Thickened mitral valve leaflets with normal excursion. Mild to moderate mitral annulus and aortic root calcification. Normal pulmonic valve structure. Normal tricuspid valve structure. IVC dilated at 2.3 cm and non-collapsing with respiration suggestive of increased RA pressure (15 mmHg). A color flow and spectral Doppler study was performed and revealed: No aortic insufficiency. Peak aortic valve gradient of 30 mm Hg and a mean of 17 mmHg. Aortic valve area 0.6 cm2 calculated by continuity equation. Moderate mitral regurgitation. Mitral diastolic velocities suggest pseudo-normal LV physiology c/w diastolic dysfunction (Grade II). Moderate tricuspid regurgitation. Tricuspid systolic velocities suggests peak right ventricular systolic pressure of 96 mmHg, consistent with severe pulmonary hypertension. Pulmonic regurgitation present.
--- NOTE | 2020-07-09 06:19 | Diagnostic Imaging Report ---
EXAM: US Duplex Bilateral Lower Extremities Veins CLINICAL HISTORY: DVT TECHNIQUE: Real-time duplex ultrasound scan of the bilateral lower extremity veins integrating B-mode two-dimensional vascular structure, Doppler spectral analysis, color flow Doppler imaging and compression. COMPARISON: None FINDINGS: Right deep veins: Unremarkable. No DVT in the right common femoral, femoral, proximal deep femoral or popliteal veins. The veins demonstrate normal color flow, are normally compressible, with normal phasic flow and/or augmentation response. Right superficial veins: Unremarkable. No thrombus in the visualized right great saphenous vein. Left deep veins: Unremarkable. No DVT in the left common femoral, femoral, proximal deep femoral or popliteal veins. The veins demonstrate normal color flow, are normally compressible, with normal phasic flow and/or augmentation response. Left superficial veins: Unremarkable. No thrombus in the visualized left great saphenous vein. Soft tissues: No acute findings. No popliteal cyst. IMPRESSION: No deep venous thrombosis identified in either lower extremity.
[2020-07-09 06:21] LABS: BLOOD UREA NITROGEN 96 mg/dL (7-18); CALCIUM 7.7 MG/DL (8.5-10.1); CARBON DIOXIDE 24 MMOL/L (21-32); CHLORIDE 99 MMOL/L (98-107); CREATININE 6.5 MG/DL (0.55-1.30); POTASSIUM 5.7 MMOL/L (3.5-5.1); SODIUM 136 MMOL/L (136-145)
--- NOTE | 2020-07-09 06:30 | NUR ---
NURSE NOTES: Dr. Monroe seen and examined the patient, MD made aware of lab result no new order at this time per Dr. Monroe continue to monitor patient.
--- NOTE | 2020-07-09 07:07 | NUR ---
NURSE NOTES: Tali from [facility] Transport called. She stated there is a bed available in MICU. Patient is to got to room 7S14. We need to arrange transport and call them 30 min before patient leaves. Number to call for report
--- NOTE | 2020-07-09 07:13 | Hematology/Onc Progress Note ---
Assessment/Plan Assessment/Plan ASSESSMENT/RECS # T cell lymphoma -- recently diagnosed, though patient confused and difficult to obtain further hx from him, also with sepsis with shock --> s/p 1 cycle chemo but requires to initiate shortly as is aggressive lymphoma --> recommend transfer to [facility] for chemo/care to [facility] # Pancytopenia with Neutropenic fever requires chemo and also with sepsis, PNA --> neupogen prn as long as ANC>1000 is goal --> neupogen was given 07/07 --> wbc 0.1-->1.1-->4.6-->3.5 --> hgb 7.5-->7.7->7 --> plt 32-->15-->14-->20 --> transfuse as needed --> obtain records of Tcell Lymphoma from [facility] --> EPO started --> 1 unit plt 07/09 # PNA with Acute toxic metabolic encephalopathy --> likely related to infection --> ABX elda/vanc --> levo gtt low dose # Elevated troponin -> per cards eval # T cell lymphoma # ESRD, on HD # DM # Hx of HTN # Recurrent left pleural effusion # Diastolic CHF # Moderate aortic stenosis # HLD # Dvt ppx scds # Dispo transfer to [facility] for hloc given new lymphoma Appreciate consultation and dw RN Subjective Constitutional: Denies: no symptoms, chills, fever, malaise, weakness, other HEENT: Denies: no symptoms, eye pain, blurred vision, tearing, double vision, ear pain, ear discharge, nose pain, nose congestion, throat pain, throat swelling, mouth pain, mouth swelling, other Cardiovascular: Denies: no symptoms, chest pain, edema, irregular heart rate, lightheadedness, palpitations, syncope, other Respiratory: Denies: no symptoms, cough, shortness of breath, SOB with excertion, SOB at rest, sputum, wheezing, other Gastrointestinal/Abdominal: Denies: no symptoms, abdomen distended, abdominal pain, black stools, tarry stools, blood in stool, constipated, diarrhea, difficulty swallowing, nausea, poor appetite, poor fluid intake, rectal bleeding, vomiting, other Genitourinary: Denies: no symptoms, burning, discharge, frequency, flank pain, hematuria, incontinence, pain, urgency, other Neurologic/Psychiatric: Denies: no symptoms, anxiety, depressed, emotional problems, headache, numbness, paresthesia, pre-existing deficit, seizure, tingling, tremors, weakness, other Allergies: Coded Allergies: LATEX, NATURAL RUBBER (Verified Allergy, Unknown, 07/07/20) MITOMYCIN (Verified Allergy, Unknown, 07/07/20) Uncoded Allergies: MYTOMYCIN (Allergy, Unknown, 07/07/20) Subjective 07/09 dw Rn in icu, accepted just now to [facility], to leave today, labs reviewed, stable, levo gtt Objective Objective Current Medications Medications (Trade) Dose Ordered Sig/Maxi Route PRN Reason Start Time Stop Time Status Last Admin Dose Admin Acetaminophen (Tylenol) 500 mg Q4H PRN ORAL Mild Pain (1-3)/ Temp 100.4 07/07/20 07:00 08/06/20 06:59 Acyclovir (Zovirax) 200 mg TuThSa ORAL 07/07/20 09:00 08/06/20 08:59 Amikacin Protocol (Amikacin pharmacy to dose) 1 ea DAILY PRN MISC Per rx protocol 07/08/20 18:45 08/07/20 18:44 Barium Sulfate (Varibar Honey) 250 ml NOW PRN RAD 07/08/20 09:00 07/11/20 08:49 Barium Sulfate (Varibar [place]) 240 ml NOW PRN RAD 07/08/20 09:00 07/11/20 08:49 Barium Sulfate (Varibar Pudding) 230 ml NOW PRN RAD 07/08/20 09:00 07/11/20 08:49 Barium Sulfate (Varibar Thin Liquid powder) 148 gm NOW PRN RAD 07/08/20 09:00 07/11/20 08:49 Calcium Acetate (Phoslo) 1,334 mg TIAC ORAL 07/07/20 11:30 10/05/20 11:29 Chlorhexidine Gluconate (Anne Marie-Hex 2%) 1 applic DAILY@2000 TOPIC 07/07/20 20:15 10/05/20 20:14 07/08/20 20:04 Dextrose 1,000 ml @ 50 mls/hr Q20H IV 07/08/20 14:00 08/07/20 13:59 07/08/20 14:23 Dextrose (Dextrose 50%) 25 ml Q30M PRN IV Hypoglycemia 07/08/20 08:15 10/06/20 08:14 07/08/20 11:13 Dextrose (Dextrose 50%) 50 ml Q30M PRN IV Hypoglycemia 07/08/20 08:15 10/06/20 08:14 Epoetin Emery (Epoetin Emery(ESRD on dialysis)) 6,000 unit THU-THU-THU SUBQ 07/09/20 21:00 10/07/20 20:59 Gabapentin (Neurontin) 100 mg QHS ORAL 07/07/20 21:00 08/06/20 20:59 Lidocaine (Lidoderm 5% PATCH) 1 patch DAILY TDERMAL 07/07/20 09:00 10/05/20 08:59 Meropenem 500 mg/ Sodium Chloride 50 ml @ 100 mls/hr Q24HRS IVPB 07/07/20 15:00 07/12/20 14:59 07/08/20 16:12 Mirtazapine (Remeron) 15 mg BEDTIME ORAL 07/07/20 21:00 10/05/20 20:59 Norepinephrine Bitartrate 250 ml @ 0 mls/hr Q24H IV 07/07/20 09:30 07/10/20 09:24 07/09/20 04:22 Ondansetron HCl (Zofran) 4 mg Q4H PRN IVP Nausea & Vomiting 07/08/20 09:45 08/07/20 09:44 07/08/20 23:37 Oxycodone HCl (Roxicodone) 5 mg Q12H PRN ORAL pain (8-10) 07/07/20 07:00 07/14/20 06:59 Pantoprazole (Protonix) 40 mg EVERY 12 HOURS IVP 07/08/20 21:00 08/07/20 20:59 07/08/20 20:07 Sennosides (Senokot) 8.6 mg DAILY PRN ORAL Constipation 07/07/20 07:00 08/06/20 06:59 Vancomycin HCl (Vanco pharmacy to dose) 1 ea DAILY PRN MISC Per rx protocol 07/07/20 13:30 08/06/20 13:29 Vitamin B Complex (Vitamin B Complex) 1 tab DAILY ORAL 07/07/20 09:00 10/05/20 08:59 Last 24 Hour Vital Signs Date Time Temp Pulse Resp B/P (MAP) Pulse Ox O2 Delivery O2 Flow Rate FiO2 07/09/20 06:00 99 34 107/62 (77) 99 07/09/20 05:00 97 34 102/63 (76) 98 07/09/20 04:22 101/54 07/09/20 04:00 98.4 97 34 101/53 (69) 99 07/09/20 04:00 Nasal Cannula 4.0 07/09/20 04:00 98 07/09/20 03:00 98 24 100/55 (70) 99 07/09/20 02:00 97 28 96/54 (68) 98 07/09/20 01:07 97 29 102/55 (71) 95 07/09/20 01:00 98 28 90/47 (61) 98 07/09/20 00:00 Nasal Cannula 4.0 07/09/20 00:00 94 07/09/20 00:00 98.6 98 29 91/57 (68) 100 07/08/20 23:00 99 28 103/65 (78) 100 07/08/20 22:00 100 28 101/58 (72) 100 07/08/20 21:00 97 29 92/64 (73) 88 07/08/20 20:30 101 35 101/58 (72) 99 07/08/20 20:15 103 26 97/58 (71) 96 07/08/20 20:07 109/63 07/08/20 20:00 98.8 104 33 109/63 (78) 98 07/08/20 20:00 104 07/08/20 20:00 Nasal Cannula 4.0 07/08/20 19:00 105 22 105/60 (75) 92 07/08/20 18:15 104 31 115/68 (84) 95 07/08/20 18:00 103 30 89/60 (70) 94 07/08/20 17:00 105 25 107/63 (78) 93 07/08/20 16:45 105 30 92/54 (67) 96 07/08/20 16:30 102 29 98/56 (70) 98 07/08/20 16:15 103 30 92/56 (68) 92 07/08/20 16:00 Nasal Cannula 4.0 07/08/20 16:00 103 10/11/20 16:00 98.8 102 27 96/54 (68) 91 07/08/20 14:45 106 26 98/60 (73) 99 07/08/20 14:30 106 32 102/62 (75) 100 07/08/20 14:15 103 29 81/46 (58) 97 07/08/20 14:00 106 34 87/57 (67) 97 07/08/20 13:45 106 30 79/56 (64) 93 07/08/20 13:30 107 28 94/56 (69) 95 07/08/20 13:15 109 31 99/57 (71) 99 07/08/20 13:00 108 30 82/52 (62) 97 07/08/20 12:15 110 31 102/63 (76) 100 07/08/20 12:00 Nasal Cannula 4.0 07/08/20 12:00 99.0 110 32 95/65 (75) 100 07/08/20 12:00 110 07/08/20 11:55 118/56 07/08/20 11:45 115 29 118/56 (76) 86 07/08/20 11:30 113 30 113/73 (86) 99 07/08/20 11:15 111 30 99/61 (74) 97 07/08/20 11:00 110 25 96/62 (73) 100 07/08/20 10:45 112 24 99/77 (84) 98 07/08/20 10:30 110 28 96/58 (71) 99 07/08/20 10:15 112 30 94/57 (69) 88 07/08/20 10:00 111 32 93/59 (70) 74 07/08/20 09:45 111 25 85/56 (66) 99 07/08/20 09:18 2.0 07/08/20 09:15 112 23 89/51 (64) 94 07/08/20 09:00 112 28 91/57 (68) 92 07/08/20 08:45 111 30 122/97 (105) 96 07/08/20 08:30 111 30 125/74 (91) 93 07/08/20 08:24 112 30 85/46 (59) 64 07/08/20 08:15 112 25 65/49 (54) 84 07/08/20 08:00 115 07/08/20 08:00 Nasal Cannula 4.0 07/08/20 08:00 99.0 136 31 94/65 (75) 89 07/08/20 07:00 136 23 128/86 (100) 99 07/08/20 06:30 139 20 98/65 (76) 100 07/08/20 06:00 116 22 106/65 (79) 100 07/08/20 05:30 116 21 100/65 (77) 99 07/08/20 05:00 140 20 105/69 (81) 100 07/08/20 04:30 143 25 111/74 (86) 99 07/08/20 04:00 Nasal Cannula 4.0 07/08/20 04:00 139 07/08/20 04:00 98.9 113 20 119/78 (92) 100 07/08/20 03:30 139 22 112/70 (84) 100 07/08/20 03:00 138 21 114/84 (94) 100 07/08/20 02:30 137 16 109/82 (91) 100 07/08/20 02:00 116 24 119/75 (90) 100 07/08/20 01:30 120 24 117/74 (88) 100 07/08/20 01:00 119 25 116/73 (87) 100 07/08/20 00:30 111 19 102/82 (89) 99 07/08/20 00:00 98.8 142 24 112/70 (84) 99 07/08/20 00:00 Nasal Cannula 4.0 07/08/20 00:00 143 07/07/20 23:30 143 26 125/87 (100) 100 07/07/20 23:00 126 29 115/75 (88) 100 07/07/20 22:34 111/75 07/07/20 22:30 117 22 94/60 (71) 100 07/07/20 22:00 137 24 98/69 (79) 100 07/07/20 21:30 142 25 107/80 (89) 100 07/07/20 21:00 139 21 103/73 (83) 100 07/07/20 20:30 139 25 105/72 (83) 100 07/07/20 20:00 126 07/07/20 20:00 98.5 140 20 107/75 (86) 100 07/07/20 20:00 Nasal Cannula 4.0 07/07/20 19:30 124 25 121/75 (90) 100 07/07/20 19:00 122 25 102/86 (91) 100 07/07/20 18:00 122 26 95/64 (74) 99 07/07/20 17:00 145 30 120/76 (91) 96 07/07/20 16:00 122 28 68/47 (54) 96 07/07/20 16:00 Nasal Cannula 4.0 07/07/20 16:00 121 07/07/20 15:09 97.1 07/07/20 15:00 120 28 114/54 (74) 98 07/07/20 14:00 120 28 97/65 (76) 98 07/07/20 13:30 118 27 85/51 (62) 98 07/07/20 13:00 116 27 83/51 (62) 97 07/07/20 12:30 149 27 127/63 (84) 97 07/07/20 12:00 2.0 07/07/20 12:00 97.4 150 26 114/52 (72) 100 07/07/20 12:00 120 07/07/20 12:00 Nasal Cannula 4.0 07/07/20 11:30 150 26 114/52 (72) 100 07/07/20 11:00 120 24 103/49 (67) 100 07/07/20 10:30 119 23 84/42 (56) 100 07/07/20 10:00 121 20 145/89 (107) 97 07/07/20 10:00 53/45 07/07/20 09:10 2.0 07/07/20 09:00 100 20 85/37 (53) 97 07/07/20 08:00 99.8 81 18 81/44 (56) 97 Intake and Output 07/08/20 07/09/20 19:00 07:00 Intake Total 1262.416 ml 1028.55 ml Output Total 18 ml 25 ml Balance 1244.416 ml 1003.55 ml Intake IV Total 1262.416 ml 1028.55 ml Output Urine Total 18 ml 25 ml # Bowel Movements 3 2 Labs Test 07/07/20 00:15 07/07/20 00:30 07/07/20 01:15 07/07/20 09:31 Urine Color Pale yellow Urine Appearance Clear Urine pH 8 (4.5-8.0) Urine Specific [place] 1.010 (1.005-1.035) Urine Protein 3+ (NEGATIVE) Urine Glucose (UA) 2+ (NEGATIVE) Urine Ketones Negative (NEGATIVE) Urine Blood 1+ (NEGATIVE) Urine Nitrite Negative (NEGATIVE) Urine Bilirubin Negative (NEGATIVE) Urine Urobilinogen Normal MG/DL (0.0-1.0) Urine Leukocyte Esterase Negative (NEGATIVE) Urine RBC 0-2 /HPF (0 - 0) Urine WBC 0-2 /HPF (0 - 0) Urine Squamous Epithelial Cells Occasional /LPF Urine Bacteria Occasional /HPF (NONE) Urine Other Casts 0-2 /LPF (NONE) Prothrombin Time 12.9 SEC (9.30-11.50) Prothromb Time International Ratio 1.2 (0.9-1.1) Activated Partial Thromboplast Time 35 SEC (23-33) Sodium Level 135 MMOL/L (136-145) Potassium Level 5.3 MMOL/L (3.5-5.1) Chloride Level 98 MMOL/L (98-107) Carbon Dioxide Level 25 MMOL/L (21-32) Anion Gap 12 mmol/L (5-15) Blood Urea Nitrogen 103 mg/dL (7-18) Creatinine 7.3 MG/DL (0.55-1.30) Estimat Glomerular Filtration Rate 7.2 mL/min (>60) Glucose Level 81 MG/DL (74-106) Lactic Acid Level 1.70 mmol/L (0.4-2.0) Calcium Level 9.0 MG/DL (8.5-10.1) Magnesium Level 1.7 MG/DL (1.8-2.4) Total Bilirubin 0.5 MG/DL (0.2-1.0) Aspartate Amino Transf (AST/SGOT) 27 U/L (15-37) Alanine Aminotransferase (ALT/SGPT) 18 U/L (12-78) Alkaline Phosphatase 88 U/L (46-116) Total Creatine Kinase 12 U/L (26-308) Troponin I 0.082 ng/mL (0.000-0.056) Pro-B-Type Natriuretic Peptide 18247 pg/mL (0-125) Total Protein 5.4 G/DL (6.4-8.2) Albumin 1.6 G/DL (3.4-5.0) Globulin 3.8 g/dL Albumin/Globulin Ratio 0.4 (1.0-2.7) Lipase 47 U/L (73-393) White Blood Count 0.1 K/UL (4.8-10.8) Red Blood Count 2.95 M/UL (4.70-6.10) Hemoglobin 7.5 G/DL (14.2-18.0) Hematocrit 22.5 % (42.0-52.0) Mean Corpuscular Volume 76 FL (80-99) Mean Corpuscular Hemoglobin 25.4 PG (27.0-31.0) Mean Corpuscular Hemoglobin Concent 33.3 G/DL (32.0-36.0) Red Cell Distribution Width 16.4 % (11.6-14.8) Platelet Count 32 K/UL (150-450) Mean Platelet Volume 10.7 FL (6.5-10.1) Neutrophils (%) (Auto) % (45.0-75.0) Lymphocytes (%) (Auto) % (20.0-45.0) Monocytes (%) (Auto) % (1.0-10.0) Eosinophils (%) (Auto) % (0.0-3.0) Basophils (%) (Auto) % (0.0-2.0) CBC Comment See comment Arterial Blood pH 7.402 (7.350-7.450) Arterial Blood Partial Pressure CO2 31.8 mmHg (35.0-45.0) Arterial Blood Partial Pressure O2 58.4 mmHg (75.0-100.0) Arterial Blood HCO3 19.3 mmol/L (22.0-26.0) Arterial Blood Oxygen Saturation 88.7 % (95-100) Arterial Blood Base Excess -4.9 (-2-2) Javier Test Positive Test 07/07/20 11:15 07/07/20 11:18 07/07/20 14:30 07/07/20 21:40 White Blood Count 1.1 K/UL (4.8-10.8) Red Blood Count 2.91 M/UL (4.70-6.10) Hemoglobin 7.6 G/DL (14.2-18.0) Hematocrit 23.7 % (42.0-52.0) Mean Corpuscular Volume 82 FL (80-99) Mean Corpuscular Hemoglobin 26.0 PG (27.0-31.0) Mean Corpuscular Hemoglobin Concent 31.9 G/DL (32.0-36.0) Red Cell Distribution Width 19.2 % (11.6-14.8) Platelet Count 15 K/UL (150-450) Mean Platelet Volume 12.2 FL (6.5-10.1) Neutrophils (%) (Auto) % (45.0-75.0) Lymphocytes (%) (Auto) % (20.0-45.0) Monocytes (%) (Auto) % (1.0-10.0) Eosinophils (%) (Auto) % (0.0-3.0) Basophils (%) (Auto) % (0.0-2.0) Differential Total Cells Counted 100 Neutrophils % (Manual) 60 % (45-75) Lymphocytes % (Manual) 33 % (20-45) Monocytes % (Manual) 5 % (1-10) Eosinophils % (Manual) 0 % (0-3) Basophils % (Manual) 0 % (0-2) Band Neutrophils 2 % (0-8) Platelet Estimate Decreased Platelet Morphology Normal Hypochromasia 1+ Anisocytosis 2+ Sodium Level 138 MMOL/L (136-145) Potassium Level 5.6 MMOL/L (3.5-5.1) Chloride Level 103 MMOL/L (98-107) Carbon Dioxide Level 22 MMOL/L (21-32) Blood Urea Nitrogen 108 mg/dL (7-18) Creatinine 7.8 MG/DL (0.55-1.30) Estimat Glomerular Filtration Rate 6.7 mL/min (>60) Glucose Level 64 MG/DL (74-106) Lactic Acid Level 3.90 mmol/L (0.4-2.0) 3.70 mmol/L (0.66-2.22) 3.50 mmol/L (0.4-2.0) Calcium Level 7.9 MG/DL (8.5-10.1) Troponin I 0.119 ng/mL (0.000-0.056) Test 07/07/20 23:30 07/08/20 06:00 07/08/20 10:00 07/08/20 10:56 Lactic Acid Level 2.50 mmol/L (0.66-2.22) 1.50 mmol/L (0.4-2.0) White Blood Count 0.9 K/UL (4.8-10.8) Red Blood Count 3.04 M/UL (4.70-6.10) Hemoglobin 7.7 G/DL (14.2-18.0) Hematocrit 23.6 % (42.0-52.0) Mean Corpuscular Volume 78 FL (80-99) Mean Corpuscular Hemoglobin 25.3 PG (27.0-31.0) Mean Corpuscular Hemoglobin Concent 32.5 G/DL (32.0-36.0) Red Cell Distribution Width 17.2 % (11.6-14.8) Platelet Count 14 K/UL (150-450) Mean Platelet Volume 12.5 FL (6.5-10.1) Neutrophils (%) (Auto) % (45.0-75.0) Lymphocytes (%) (Auto) % (20.0-45.0) Monocytes (%) (Auto) % (1.0-10.0) Eosinophils (%) (Auto) % (0.0-3.0) Basophils (%) (Auto) % (0.0-2.0) Differential Total Cells Counted 100 Neutrophils % (Manual) 67 % (45-75) Lymphocytes % (Manual) 14 % (20-45) Monocytes % (Manual) 9 % (1-10) Eosinophils % (Manual) 0 % (0-3) Basophils % (Manual) 0 % (0-2) Band Neutrophils 10 % (0-8) Platelet Estimate Decreased Platelet Morphology Normal Hypochromasia 1+ Anisocytosis 2+ Sodium Level 138 MMOL/L (136-145) Potassium Level 5.0 MMOL/L (3.5-5.1) Chloride Level 100 MMOL/L (98-107) Carbon Dioxide Level 23 MMOL/L (21-32) Anion Gap 15 mmol/L (5-15) Blood Urea Nitrogen 72 mg/dL (7-18) Creatinine 5.3 MG/DL (0.55-1.30) Estimat Glomerular Filtration Rate 10.5 mL/min (>60) Glucose Level 35 MG/DL (74-106) Hemoglobin A1c 6.2 % (4.3-6.0) Uric Acid 3.2 MG/DL (2.6-7.2) Calcium Level 7.8 MG/DL (8.5-10.1) Phosphorus Level 6.0 MG/DL (2.5-4.9) Magnesium Level 2.0 MG/DL (1.8-2.4) Iron Level 14 ug/dL (50-175) Total Iron Binding Capacity 90 ug/dL (250-450) Percent Iron Saturation 16 % (15-50) Unsaturated Iron Binding 76 ug/dL (112-346) Ferritin > 2000 NG/ML (8-388) Total Bilirubin 0.9 MG/DL (0.2-1.0) Gamma Glutamyl Transpeptidase 62 U/L (5-85) Aspartate Amino Transf (AST/SGOT) 65 U/L (15-37) Alanine Aminotransferase (ALT/SGPT) 41 U/L (12-78) Alkaline Phosphatase 94 U/L (46-116) Ammonia 14 umol/L (11-32) Troponin I 0.704 ng/mL (0.000-0.056) C-Reactive Protein, Quantitative 67.1 mg/dL (0.00-0.90) Pro-B-Type Natriuretic Peptide > 37190 pg/mL (0-125) Total Protein 5.5 G/DL (6.4-8.2) Albumin 1.7 G/DL (3.4-5.0) Globulin 3.8 g/dL Albumin/Globulin Ratio 0.4 (1.0-2.7) Triglycerides Level 98 MG/DL (30-150) Cholesterol Level 54 MG/DL (< 200) LDL Cholesterol 5 mg/dL (<100) HDL Cholesterol 15 MG/DL (40-60) Cholesterol/HDL Ratio 3.6 (3.3-4.4) Vitamin B12 Level > 2000 PG/ML (193-986) Folate 64.0 NG/ML (8.6-58.9) Thyroid Stimulating Hormone (TSH) 0.655 uiU/mL (0.358-3.740) Random Vancomycin Level 9.7 ug/mL HIV (1&2) Antibody Rapid Negative (NEGATIVE) Test 07/08/20 16:36 07/08/20 21:54 07/09/20 03:30 POC Whole Blood Glucose 142 MG/DL (74-106) White Blood Count 4.6 K/UL (4.8-10.8) 3.5 K/UL (4.8-10.8) Red Blood Count 2.73 M/UL (4.70-6.10) 2.71 M/UL (4.70-6.10) Hemoglobin 7.1 G/DL (14.2-18.0) 7.0 G/DL (14.2-18.0) Hematocrit 22.3 % (42.0-52.0) 21.5 % (42.0-52.0) Mean Corpuscular Volume 82 FL (80-99) 80 FL (80-99) Mean Corpuscular Hemoglobin 26.2 PG (27.0-31.0) 25.8 PG (27.0-31.0) Mean Corpuscular Hemoglobin Concent 32.1 G/DL (32.0-36.0) 32.4 G/DL (32.0-36.0) Red Cell Distribution Width 19.6 % (11.6-14.8) 17.8 % (11.6-14.8) Platelet Count 27 K/UL (150-450) 20 K/UL (150-450) Mean Platelet Volume 8.0 FL (6.5-10.1) 10.0 FL (6.5-10.1) Neutrophils (%) (Auto) % (45.0-75.0) % (45.0-75.0) Lymphocytes (%) (Auto) % (20.0-45.0) % (20.0-45.0) Monocytes (%) (Auto) % (1.0-10.0) % (1.0-10.0) Eosinophils (%) (Auto) % (0.0-3.0) % (0.0-3.0) Basophils (%) (Auto) % (0.0-2.0) % (0.0-2.0) Differential Total Cells Counted 100 Neutrophils % (Manual) 35 % (45-75) Lymphocytes % (Manual) 52 % (20-45) Monocytes % (Manual) 2 % (1-10) Eosinophils % (Manual) 0 % (0-3) Basophils % (Manual) 1 % (0-2) Band Neutrophils 10 % (0-8) Nucleated Red Blood Cells 2 /100 WBC Platelet Estimate Decreased Platelet Morphology Normal Hypochromasia 2+ Anisocytosis 2+ Microcytosis 1+ Macrocytosis Occasional Sodium Level 136 MMOL/L (136-145) Potassium Level 5.7 MMOL/L (3.5-5.1) Chloride Level 99 MMOL/L (98-107) Carbon Dioxide Level 24 MMOL/L (21-32) Blood Urea Nitrogen 96 mg/dL (7-18) Creatinine 6.5 MG/DL (0.55-1.30) Estimat Glomerular Filtration Rate 8.3 mL/min (>60) Glucose Level 169 MG/DL (74-106) Calcium Level 7.7 MG/DL (8.5-10.1) Height (Feet): 5 Height (Inches): 6.00 Weight (Pounds): 140 Objective Physical Exam General Appearance: no apparent distress, lethargic Lines, tubes and drains: other - R chest dial catheter HEENT: normocephalic, atraumatic, anicteric Neck: non-tender, supple Respiratory/Chest: no accessory muscle use Cardiovascular/Chest: tachycardia - ST with BBB Abdomen: normal bowel sounds, non tender, soft Extremities: normal capillary refill Neurologic: abnormal gait, other - lethargic moves all extremities Musculoskeletal: atrophy - BLE Aung Monroe MD Jul 09, 2020 07:13
--- NOTE | 2020-07-09 07:27 | NUR ---
HAND-OFF: Report given to Diana LECHUGA.
--- NOTE | 2020-07-09 07:28 | NUR ---
NURSE NOTES: Pt received from ANKUSH Cline. Pt is wake, opens eyes spontaneously, makes eye contact when called by name, non-verbal, unable to follow simple commands, pupils equal and round 4 mm with sluggish rxn to light. Pt is SR w/ BBB to senior developer with 2+ radial and dorsalis pedis pulses. No edema noted. Pt is on 4L O2 via NC. Breathing appears slightly labored - RR 28 - spO2 99%. Lung wright noted diminished. Abd is round, slightly firm to palpation, with active bowel sounds to ll quadrants. Pt is NPO. F/C noted draining scant amount of dark julia urine. Skin is intact. Pt has a L chest, double-lumen Port-A-Cath with dry and intact dressing running D10 at 50 cc/hr and levophed at 10 mcg/min. LFA 20g IV noted saline locked. CBC results for today noted and reviewed by Dr Monroe - currently at bedside - no transfusion order received. Bed in lowest position, alarm on, side rails up x 2, call light within reach. Will continue to monitor. Pt pending transfer to [place] per RT Marlyn. Addendum: 07/09/20 at 2017 by Diana De La Paz RN NURSE NOTES: AMENDMENT: Pt has a Left chest permacath (not port-a-cath). Addendum: 07/09/20 at 2018 by Diana De La Paz RN Late entry: Pt also has a NILA AV shunt covered with dry and intact dressing.
--- NOTE | 2020-07-09 08:00 | NUR ---
NURSE NOTES: Pt repositioned; oral care provided.
--- NOTE | 2020-07-09 08:30 | NUR ---
NURSE NOTES: Venous duplex result confirmed negative - SCDs placed on bilat lower extremities.
[2020-07-09] MEDS: Vitamin B Complex Tab ORAL SCH (09:00)
[2020-07-09] MEDS: Dextrose 10% 1,000 ML IV SCH (09:24)
[2020-07-09] MEDS: Pantoprazole Inj IVP SCH ×2 (09:24→21:24)
--- NOTE | 2020-07-09 09:26 | NUR ---
ANATOMIC PATHOLOGY MANAGER NOTE CALL MADE TO [facility] TRANSFER [facility]. S/W ALCON WHO STATED THAT A BED IS AVAILABLE OF THIS MORNING AND ICU HAS ALREADY BEEN NOTIFIED. S/W ANKUSH GRAHAM IN ICU AND CONFIRMED TRANSPORTATION FOR TRANSFER HAS BEEN SCHEDULED WITH ETA @ [id number].
--- NOTE | 2020-07-09 10:00 | NUR ---
NURSE NOTES: covid swabs sent down to lab for processing.
--- NOTE | 2020-07-09 10:04 | Pulmonolgy Critical Care Note ---
IvánGiovanna BLADE GRINDER 07/09/20 1004: Critical Care - Asmt/Plan Assessment/Plan: ASSESSMENT sepsis with shock GN Bacteremia PNA Neutropenic fever Acute toxic metabolic encephalopathy Elevated troponin, likely due to demand - due to severe pancytopenia and sepsis Severe pancytopenia T cell lymphoma, s/p RCHOP ESRD, on HD DM type 2 with hypoglycemia Hx of HTN Recurrent left pleural effusio,, s/p VATS with decortication CHF with rEF 40-45% Severe pulmonary HTN Severe Moderate aortic stenosis HLD Bladder Ca, latent TB, Hypoglycemia - resolved PLAN OF CARE ICU now on Levophed, titrate to keep mean arterial BP > 65 closely monitor hemodynamic status BCX + GNR abx, per ID recs -> Meropenem, Vanco, Amikacin fup with cx discussed with ID storage management consultant: source of bacteremia likely catheter, needs to be dc and will need another line plan was IR to insert a line and old catheter will be dc, but patient is leaving now to [facility] serial troponin minimally elevated cardio eval appreciated elevated troponin likelyl due to demand ischemia 2 to sepsis and severe pancytopenia ECHO with rEF 40-45%, severe pulmonary HTN and severe O2 titrate to keep sat above 92% fup with CXR s/p Granix x 2 1 u PLT and 1 u PRBC HD as per nephro with close monitoring of volumes and renal parameters Venous Duplex BLE NGT SCD transfer to [facility] for a higher level of care via [facility] ambulance later today monitor BS, HgA1c 6.2, IVF with D10 , BS better recent hospitalization for left loculated effusion c/b left hemothorax , s/p VATS and decortication; underwent [facility] 06/29 case discussed and evaluated by supervising physician Critical Care - Objective Last 24 Hour Vital Signs Date Time Temp Pulse Resp B/P (MAP) Pulse Ox O2 Delivery O2 Flow Rate FiO2 07/09/20 07:00 99 33 92/56 (68) 99 07/09/20 06:00 99 34 107/62 (77) 99 07/09/20 05:00 97 34 102/63 (76) 98 07/09/20 04:22 101/54 07/09/20 04:00 98.4 97 34 101/53 (69) 99 07/09/20 04:00 Nasal Cannula 4.0 10/12/20 04:00 98 07/09/20 03:00 98 24 100/55 (70) 99 07/09/20 02:00 97 28 96/54 (68) 98 07/09/20 01:07 97 29 102/55 (71) 95 07/09/20 01:00 98 28 90/47 (61) 98 07/09/20 00:00 Nasal Cannula 4.0 07/09/20 00:00 94 07/09/20 00:00 98.6 98 29 91/57 (68) 100 07/08/20 23:00 99 28 103/65 (78) 100 07/08/20 22:00 100 28 101/58 (72) 100 07/08/20 21:00 97 29 92/64 (73) 88 07/08/20 20:30 101 35 101/58 (72) 99 07/08/20 20:15 103 26 97/58 (71) 96 07/08/20 20:07 109/63 07/08/20 20:00 98.8 104 33 109/63 (78) 98 07/08/20 20:00 104 07/08/20 20:00 Nasal Cannula 4.0 07/08/20 19:00 105 22 105/60 (75) 92 07/08/20 18:15 104 31 115/68 (84) 95 07/08/20 18:00 103 30 89/60 (70) 94 07/08/20 17:00 105 25 107/63 (78) 93 07/08/20 16:45 105 30 92/54 (67) 96 07/08/20 16:30 102 29 98/56 (70) 98 07/08/20 16:15 103 30 92/56 (68) 92 07/08/20 16:00 Nasal Cannula 4.0 07/08/20 16:00 103 07/08/20 16:00 98.8 102 27 96/54 (68) 91 07/08/20 14:45 106 26 98/60 (73) 99 07/08/20 14:30 106 32 102/62 (75) 100 07/08/20 14:15 103 29 81/46 (58) 97 07/08/20 14:00 106 34 87/57 (67) 97 07/08/20 13:45 106 30 79/56 (64) 93 07/08/20 13:30 107 28 94/56 (69) 95 07/08/20 13:15 109 31 99/57 (71) 99 07/08/20 13:00 108 30 82/52 (62) 97 07/08/20 12:15 110 31 102/63 (76) 100 07/08/20 12:00 Nasal Cannula 4.0 07/08/20 12:00 99.0 110 32 95/65 (75) 100 07/08/20 12:00 110 07/08/20 11:55 118/56 07/08/20 11:45 115 29 118/56 (76) 86 07/08/20 11:30 113 30 113/73 (86) 99 07/08/20 11:15 111 30 99/61 (74) 97 07/08/20 11:00 110 25 96/62 (73) 100 07/08/20 10:45 112 24 99/77 (84) 98 07/08/20 10:30 110 28 96/58 (71) 99 07/08/20 10:15 112 30 94/57 (69) 88 07/08/20 10:00 111 32 93/59 (70) 74 Objective: General Appearance: no apparent distress, confused Lines, tubes and drains: R chest dual lumen catheter, R AV fistula + bruit/thrill HEENT: normocephalic, atraumatic, anicteric Neck: non-tender, supple Respiratory/Chest: no accessory muscle use, decreased breath sounds Cardiovascular/Chest: SR to low ST Abdomen: normal bowel sounds, non tender, soft Extremities: normal capillary refill Neurologic: abnormal gait, moves all extremities, awake, but confused Musculoskeletal: atrophy - BLE Micro: Microbiology Date/Time Source Procedure Growth Status 07/07/20 00:30 Blood Blood Culture - Final Klebsiella Pneumoniae Complete 07/07/20 00:15 Rectum - Final NO CARBAPENEM-RESISTANT ENTEROBACTERI... Complete 07/07/20 00:15 Rectum VRE Culture - Final NO VANCOMYCIN RESISTANT ENTEROCOCCUS ... Complete 07/07/20 00:15 Nasal Nares MRSA Culture - Final NO METHICILLIN RESISTANT STAPH AUREUS... Complete 07/07/20 00:15 Nasopharynx SARS-CoV-2 RdRp Gene Assay - Final Complete 07/07/20 00:15 Blood Blood Culture - Final Klebsiella Pneumoniae Complete Accucheck: 169 Critical Care - Subjective ROS Limited/Unobtainable: Yes Interval Events: on O2 via NC, no resp distress no fevers on Levophed 10 mcg/min WBC better after Granix ( total x 2 doses) Hgb 7.0 ( s/p 1 u PRBC) and PLT 20 ( s/p 1 u PLT) BS better after started on dextrose D!) IVF at 50 BCX+ GNR, abx changed by ID need line swap Condition: critical IV Access: central - L chest HD catheter EKG Rhythm: Sinus Rhythm Fluids: D 10 at 50 Drips: levophed gtt 10 mcg/min I&O: Intake and Output 07/08/20 07/09/20 19:00 07:00 Intake Total 1262.416 ml 1028.55 ml Output Total 18 ml 25 ml Balance 1244.416 ml 1003.55 ml Intake IV Total 1262.416 ml 1028.55 ml Output Urine Total 18 ml 25 ml # Bowel Movements 3 2 CXR: 07/07 1. Hypoaeration of the right lung. 2. Elevation of the right hemidiaphragm. 3. Patchy airspace disease left mid lower lung zones possibly on the basis of atypical pneumonias. 4. Alternatively, finding may be on the basis of pulmonary edema. 5. Cardiomegaly left pleural effusion. 6. Clinical correlation is advised to assess for congestive heart failure. 7. Mild central pulmonary vascular congestion is noted. Findings are therefore most likely on the basis of congestive heart failure. Dannie Mcclain MD 07/09/20 1121: Critical Care - Asmt/Plan Assessment/Plan: Patient seen and examined with BLADE GRINDER and agree with the above formulated assessment and plan. Klebsiella bacteremia. tunneled catheter needs to be removed and replaced with new line given likely line sepsis. patient has been accepted to transfer to [facility] this morning and line change placed on hold in anticipation of transfer. If this is not going to occur shortly, will looke into getting line change done here. Time Spent (Minutes): 40 - cc Giovanna Minor NP Jul 09, 2020 10:04 Dannie Mcclain MD Jul 09, 2020 11:21
--- NOTE | 2020-07-09 10:15 | NUR ---
NURSE NOTES: Report given to ANKUSH Alejandre from [facility].
--- NOTE | 2020-07-09 11:00 | NUR ---
NURSE NOTES: Report given to Edson Palomino, transportation project manager. Pt transferred to [facility] in stable condition - SBP 117 on 12 mcg/min of Levo, spO2 100% on 4L O2 via NC. No belongings present with pt. Pt's daughter contacted over phone - made aware of transfer, per rodger Todd RN. Levophed bag changed at this time. Addendum: 07/09/20 at 2001 by Diana De La Paz RN Amendment: Please disregard this noted.
--- NOTE | 2020-07-09 11:30 | NUR ---
NURSE NOTES: Edson Palomino, transportation supervisor at bedside trouble shooting portable IV pump (provided by [employer]). Pt remains in hospital bed pending transport.
--- NOTE | 2020-07-09 11:35 | NUR ---
NURSE NOTES: Dr Mcclain and Apolinar at bedside assessing pt - ABG results for today reviewed. Both requested to defer transfer at this time until pt receives HD and is more stable for transport.
--- NOTE | 2020-07-09 12:00 | NUR ---
NURSE NOTES: Pt repositioned. Afebrile.
--- NOTE | 2020-07-09 12:02 | Nephrology Progress Note ---
Assessment/Plan Problem List: (1) ESRD (end stage renal disease) on dialysis (2) Thrombocytopenia (3) Leukopenia (4) Anemia (5) Elevated troponin (6) Shock (7) Bilateral pleural effusion Assessment Presents with hypotension, sepsis, pancytopenia Has evidence of pneumonia Non-ST elevation DE History of lymphoma and recurrent left pleural effusion LVH diastolic CHF moderate aortic stenosis and hypertension Secondary hyperparathyroidism hypocalcemia [id number] diabetes mellitus Hyperlipemia History of recurrent bladder cancer Protein calorie malnutrition Hyperuricemia Plan July 09: Discussed with Dr. Mcclain. Nurse Katya available. Patient is too unstable for transfer. He is on pressors. Toxic appearance. Acidotic. Hyperkalemic. Due for dialysis for electrolyte abnormalities today. Patient will be on BiPAP trial and if no improvement then to be intubated. Continue per ID. Continue pulmonary support. Prognosis poor. July 08: Patient was dialyzed yesterday. Patient hypoglycemic today. Labs reviewed. Has pancytopenia. Medication list reviewed. Hemodialysis again tomorrow. Dextrose 10% 50 cc an hour ordered. Continue to monitor blood sugar. Stop sliding scale insulin. July 07: Dialysis to correct electrolyte abnormalities and uremic symptoms Hem Onc , ID, pulmonary follow-up Monitor renal parameters, electrolytes, uric acid Monitor blood sugar while n.p.o. Per orders Subjective ROS Limited/Unobtainable: Yes Objective Objective Last 24 Hour Vital Signs Date Time Temp Pulse Resp B/P (MAP) Pulse Ox O2 Delivery O2 Flow Rate FiO2 07/09/20 11:02 113/58 07/09/20 11:00 97 31 113/58 (76) 100 07/09/20 11:00 98.1 97 31 113/58 (76) 100 07/09/20 10:45 96 28 117/57 (77) 99 07/09/20 10:30 96 28 99/53 (68) 98 07/09/20 10:15 95 28 97/52 (67) 99 07/09/20 10:06 95 30 95/51 (66) 98 07/09/20 10:00 95 31 78/47 (57) 99 07/09/20 09:04 92 31 97/54 (68) 100 07/09/20 09:00 92 31 97/54 (68) 100 07/09/20 09:00 4.0 07/09/20 08:00 99 07/09/20 08:00 97.8 100 31 115/63 (80) 99 07/09/20 07:00 99 33 92/56 (68) 99 07/09/20 06:00 99 34 107/62 (77) 99 07/09/20 05:00 97 34 102/63 (76) 98 07/09/20 04:22 101/54 07/09/20 04:00 98.4 97 34 101/53 (69) 99 07/09/20 04:00 Nasal Cannula 4.0 07/09/20 04:00 98 07/09/20 03:00 98 24 100/55 (70) 99 07/09/20 02:00 97 28 96/54 (68) 98 07/09/20 01:07 97 29 102/55 (71) 95 07/09/20 01:00 98 28 90/47 (61) 98 07/09/20 00:00 Nasal Cannula 4.0 07/09/20 00:00 94 07/09/20 00:00 98.6 98 29 91/57 (68) 100 07/08/20 23:00 99 28 103/65 (78) 100 07/08/20 22:00 100 28 101/58 (72) 100 07/08/20 21:00 97 29 92/64 (73) 88 07/08/20 20:30 101 35 101/58 (72) 99 07/08/20 20:15 103 26 97/58 (71) 96 07/08/20 20:07 109/63 07/08/20 20:00 98.8 104 33 109/63 (78) 98 07/08/20 20:00 104 07/08/20 20:00 Nasal Cannula 4.0 07/08/20 19:00 105 22 105/60 (75) 92 07/08/20 18:15 104 31 115/68 (84) 95 07/08/20 18:00 103 30 89/60 (70) 94 07/08/20 17:00 105 25 107/63 (78) 93 07/08/20 16:45 105 30 92/54 (67) 96 07/08/20 16:30 102 29 98/56 (70) 98 07/08/20 16:15 103 30 92/56 (68) 92 07/08/20 16:00 Nasal Cannula 4.0 07/08/20 16:00 103 07/08/20 16:00 98.8 102 27 96/54 (68) 91 07/08/20 14:45 106 26 98/60 (73) 99 07/08/20 14:30 106 32 102/62 (75) 100 07/08/20 14:15 103 29 81/46 (58) 97 07/08/20 14:00 106 34 87/57 (67) 97 07/08/20 13:45 106 30 79/56 (64) 93 07/08/20 13:30 107 28 94/56 (69) 95 07/08/20 13:15 109 31 99/57 (71) 99 07/08/20 13:00 108 30 82/52 (62) 97 07/08/20 12:15 110 31 102/63 (76) 100 Intake and Output 07/08/20 07/09/20 19:00 07:00 Intake Total 1262.416 ml 1028.55 ml Output Total 18 ml 25 ml Balance 1244.416 ml 1003.55 ml Intake IV Total 1262.416 ml 1028.55 ml Output Urine Total 18 ml 25 ml # Bowel Movements 3 2 Current Medications Medications (Trade) Dose Ordered Sig/Maxi Route PRN Reason Start Time Stop Time Status Last Admin Dose Admin Acetaminophen (Tylenol) 500 mg Q4H PRN ORAL Mild Pain (1-3)/ Temp 100.4 07/07/20 07:00 08/06/20 06:59 Acyclovir (Zovirax) 200 mg TuThSa ORAL 07/07/20 09:00 08/06/20 08:59 Amikacin Protocol (Amikacin pharmacy to dose) 1 ea DAILY PRN MISC Per rx protocol 07/08/20 18:45 08/07/20 18:44 Barium Sulfate (Varibar Honey) 250 ml NOW PRN MC RAD 07/08/20 09:00 07/11/20 08:49 Barium Sulfate (Varibar [place]) 240 ml NOW PRN MC RAD 07/08/20 09:00 07/11/20 08:49 Barium Sulfate (Varibar Pudding) 230 ml NOW PRN MC RAD 07/08/20 09:00 07/11/20 08:49 Barium Sulfate (Varibar Thin Liquid powder) 148 gm NOW PRN MC RAD 07/08/20 09:00 07/11/20 08:49 Calcium Acetate (Phoslo) 1,334 mg TIAC ORAL 07/07/20 11:30 10/05/20 11:29 Chlorhexidine Gluconate (Anne Marie-Hex 2%) 1 applic DAILY@2000 TOPIC 07/07/20 20:15 10/05/20 20:14 07/08/20 20:04 Dextrose 1,000 ml @ 50 mls/hr Q20H IV 07/08/20 14:00 08/07/20 13:59 07/09/20 09:24 Dextrose (Dextrose 50%) 25 ml Q30M PRN IV Hypoglycemia 07/08/20 08:15 10/06/20 08:14 07/08/20 11:13 Dextrose (Dextrose 50%) 50 ml Q30M PRN IV Hypoglycemia 07/08/20 08:15 10/06/20 08:14 Epoetin Emery (Epoetin Emery(ESRD on dialysis)) 6,000 unit THU-THU-THU SUBQ 07/09/20 21:00 10/07/20 20:59 Gabapentin (Neurontin) 100 mg QHS ORAL 07/07/20 21:00 08/06/20 20:59 Lidocaine (Lidoderm 5% PATCH) 1 patch DAILY TDERMAL 07/07/20 09:00 10/05/20 08:59 Meropenem 500 mg/ Sodium Chloride 50 ml @ 100 mls/hr Q24HRS IVPB 07/07/20 15:00 07/12/20 14:59 07/08/20 16:12 Mirtazapine (Remeron) 15 mg BEDTIME ORAL 07/07/20 21:00 10/05/20 20:59 Norepinephrine Bitartrate 250 ml @ 0 mls/hr Q24H IV 07/07/20 09:30 07/10/20 09:24 07/09/20 11:02 Ondansetron HCl (Zofran) 4 mg Q4H PRN IVP Nausea & Vomiting 07/08/20 09:45 08/07/20 09:44 07/08/20 23:37 Oxycodone HCl (Roxicodone) 5 mg Q12H PRN ORAL pain (8-10) 07/07/20 07:00 07/14/20 06:59 Pantoprazole (Protonix) 40 mg EVERY 12 HOURS IVP 07/08/20 21:00 08/07/20 20:59 07/09/20 09:24 Sennosides (Senokot) 8.6 mg DAILY PRN ORAL Constipation 07/07/20 07:00 08/06/20 06:59 Vancomycin HCl ([facility] pharmacy to dose) 1 ea DAILY PRN MISC Per rx protocol 07/07/20 13:30 08/06/20 13:29 Vitamin B Complex (Vitamin B Complex) 1 tab DAILY ORAL 07/07/20 09:00 10/05/20 08:59 Laboratory Tests 07/08/20 16:36: POC Whole Blood Glucose 142H 07/08/20 21:54: White Blood Count 4.6#L, Red Blood Count 2.73L, Hemoglobin 7.1L, Hematocrit 22.3L, Mean Corpuscular Volume 82, Mean Corpuscular Hemoglobin 26.2L, Mean Corpuscular Hemoglobin Concent 32.1, Red Cell Distribution Width 19.6H, Platelet Count 27#L, Mean Platelet Volume 8.0, Neutrophils (%) (Auto) , Lymphocytes (%) (Auto) , Monocytes (%) (Auto) , Eosinophils (%) (Auto) , Basophils (%) (Auto) , Differential Total Cells Counted 100, Neutrophils % (Manual) 35L, Lymphocytes % (Manual) 52H, Monocytes % (Manual) 2, Eosinophils % (Manual) 0, Basophils % (Manual) 1, Band Neutrophils 10H, Nucleated Red Blood Cells 2, Platelet Estimate DecreasedL, Platelet Morphology Normal, Hypochromasia 2+, Anisocytosis 2+, Microcytosis 1+, Macrocytosis Occasional 07/09/20 03:30: White Blood Count 3.5L, Red Blood Count 2.71L, Hemoglobin 7.0L, Hematocrit 21.5L , Mean Corpuscular Volume 80, Mean Corpuscular Hemoglobin 25.8L, Mean Corpuscular Hemoglobin Concent 32.4, Red Cell Distribution Width 17.8H, Platelet Count 20L, Mean Platelet Volume 10.0, Neutrophils (%) (Auto) , Lymphocytes (%) (Auto) , Monocytes (%) (Auto) , Eosinophils (%) (Auto) , Basophils (%) (Auto) , Differential Total Cells Counted 100, Neutrophils % (Manual) 56, Lymphocytes % (Manual) 5L, Monocytes % (Manual) 13H, Eosinophils % (Manual) 0, Basophils % (Manual) 0, Band Neutrophils 21H, Platelet Estimate DecreasedL, Platelet Morphology Normal, Hypochromasia 2+, Anisocytosis 2+, Microcytosis 1+, Metamyelocytes % 2H, Myelocytes % 3H, Sodium Level 136, Potassium Level 5.7H, Chloride Level 99, Carbon Dioxide Level 24, Blood Urea Nitrogen 96H, Creatinine 6.5H, Estimat Glomerular Filtration Rate 8.3, Glucose Level 169#H, Calcium Level 7.7L, Gamma Glutamyl Transpeptidase 154H, Troponin I 0.648H 07/09/20 11:33: Arterial Blood pH 7.275L, Arterial Blood Partial Pressure CO2 45.9H, Arterial Blood Partial Pressure O2 93.2, Arterial Blood HCO3 20.8L, Arterial Blood Oxygen Saturation 95.0, Arterial Blood Base Excess -5.6L, Javier Test Positive Height (Feet): 5 Height (Inches): 6.00 Weight (Pounds): 140 General Appearance: mild distress EENT: other - Toxic appearance Cardiovascular: tachycardia Respiratory/Chest: decreased breath sounds Abdomen: distended Rome Jiang MD Jul 09, 2020 12:02
--- NOTE | 2020-07-09 12:20 | Infectious Diseases Prog Note ---
Assessment/Plan Assessment/Plan Full consult dictated: A) 1) klebsiella bacteremia/? line infection, neutropenia, sepsis/shock, fevers, pnas, covid-19 neg x 2 2) pancytopenia 3) esrd, hd, t-cell lymphoma, bladder ca, , effusion, dm, htn 4) hx chemo P) 1) meropenem, vancomycin, doxycycline 2) check cultures, labs and chest x-ray 3) d/w Dr. Mcclain and Giovanna Minor, JANNETH 4) consider line change 5) CT scan abdomen and pelvis, when stable 6) critical 7) will f/u Subjective Constitutional: Reports: fatigue; Denies: fever HEENT: Reports: congestion Respiratory: Reports: shortness of breath Cardiovascular: Reports: other - + pressors Allergies: Coded Allergies: LATEX, NATURAL RUBBER (Verified Allergy, Unknown, 07/07/20) MITOMYCIN (Verified Allergy, Unknown, 07/07/20) Uncoded Allergies: MYTOMYCIN (Allergy, Unknown, 07/07/20) Objective Last 24 Hour Vital Signs Date Time Temp Pulse Resp B/P (MAP) Pulse Ox O2 Delivery O2 Flow Rate FiO2 07/09/20 11:02 113/58 07/09/20 11:00 97 31 113/58 (76) 100 07/09/20 11:00 98.1 97 31 113/58 (76) 100 07/09/20 10:45 96 28 117/57 (77) 99 07/09/20 10:30 96 28 99/53 (68) 98 07/09/20 10:15 95 28 97/52 (67) 99 07/09/20 10:06 95 30 95/51 (66) 98 07/09/20 10:00 95 31 78/47 (57) 99 07/09/20 09:04 92 31 97/54 (68) 100 07/09/20 09:00 92 31 97/54 (68) 100 07/09/20 09:00 4.0 07/09/20 08:00 99 07/09/20 08:00 97.8 100 31 115/63 (80) 99 07/09/20 07:00 99 33 92/56 (68) 99 07/09/20 06:00 99 34 107/62 (77) 99 07/09/20 05:00 97 34 102/63 (76) 98 07/09/20 04:22 101/54 07/09/20 04:00 98.4 97 34 101/53 (69) 99 07/09/20 04:00 Nasal Cannula 4.0 07/09/20 04:00 98 07/09/20 03:00 98 24 100/55 (70) 99 07/09/20 02:00 97 28 96/54 (68) 98 07/09/20 01:07 97 29 102/55 (71) 95 07/09/20 01:00 98 28 90/47 (61) 98 07/09/20 00:00 Nasal Cannula 4.0 07/09/20 00:00 94 07/09/20 00:00 98.6 98 29 91/57 (68) 100 07/08/20 23:00 99 28 103/65 (78) 100 07/08/20 22:00 100 28 101/58 (72) 100 07/08/20 21:00 97 29 92/64 (73) 88 07/08/20 20:30 101 35 101/58 (72) 99 07/08/20 20:15 103 26 97/58 (71) 96 07/08/20 20:07 109/63 07/08/20 20:00 98.8 104 33 109/63 (78) 98 07/08/20 20:00 104 07/08/20 20:00 Nasal Cannula 4.0 07/08/20 19:00 105 22 105/60 (75) 92 07/08/20 18:15 104 31 115/68 (84) 95 07/08/20 18:00 103 30 89/60 (70) 94 07/08/20 17:00 105 25 107/63 (78) 93 07/08/20 16:45 105 30 92/54 (67) 96 07/08/20 16:30 102 29 98/56 (70) 98 07/08/20 16:15 103 30 92/56 (68) 92 07/08/20 16:00 Nasal Cannula 4.0 07/08/20 16:00 103 07/08/20 16:00 98.8 102 27 96/54 (68) 91 07/08/20 14:45 106 26 98/60 (73) 99 07/08/20 14:30 106 32 102/62 (75) 100 07/08/20 14:15 103 29 81/46 (58) 97 07/08/20 14:00 106 34 87/57 (67) 97 07/08/20 13:45 106 30 79/56 (64) 93 07/08/20 13:30 107 28 94/56 (69) 95 07/08/20 13:15 109 31 99/57 (71) 99 07/08/20 13:00 108 30 82/52 (62) 97 Height (Feet): 5 Height (Inches): 6.00 Weight (Pounds): 140 General Appearance: no acute distress HEENT: normocephalic, atraumatic, anicteric Respiratory/Chest: crackles/rales, rhonchi - bilaterally Cardiovascular: normal rate, regular rhythm Abdomen: normal bowel sounds, soft, non tender, no organomegaly Microbiology Date/Time Source Procedure Growth Status 07/09/20 09:30 Nasopharynx SARS-CoV-2 RdRp Gene Assay - Final Complete 07/07/20 00:30 Blood Blood Culture - Final Klebsiella Pneumoniae Complete 07/07/20 00:15 Rectum - Final NO CARBAPENEM-RESISTANT ENTEROBACTERI... Complete 07/07/20 00:15 Rectum VRE Culture - Final NO VANCOMYCIN RESISTANT ENTEROCOCCUS ... Complete 07/07/20 00:15 Nasal Nares MRSA Culture - Final NO METHICILLIN RESISTANT STAPH AUREUS... Complete 07/07/20 00:15 Nasopharynx SARS-CoV-2 RdRp Gene Assay - Final Complete 07/07/20 00:15 Blood Blood Culture - Final Klebsiella Pneumoniae Complete Laboratory Tests Test 07/08/20 16:36 07/08/20 21:54 07/09/20 03:30 07/09/20 11:33 POC Whole Blood Glucose 142 MG/DL (74-106) H White Blood Count 4.6 K/UL (4.8-10.8) #L 3.5 K/UL (4.8-10.8) L Red Blood Count 2.73 M/UL (4.70-6.10) L 2.71 M/UL (4.70-6.10) L Hemoglobin 7.1 G/DL (14.2-18.0) L 7.0 G/DL (14.2-18.0) L Hematocrit 22.3 % (42.0-52.0) L 21.5 % (42.0-52.0) L Mean Corpuscular Volume 82 FL (80-99) 80 FL (80-99) Mean Corpuscular Hemoglobin 26.2 PG (27.0-31.0) L 25.8 PG (27.0-31.0) L Mean Corpuscular Hemoglobin Concent 32.1 G/DL (32.0-36.0) 32.4 G/DL (32.0-36.0) Red Cell Distribution Width 19.6 % (11.6-14.8) H 17.8 % (11.6-14.8) H Platelet Count 27 K/UL (150-450) #L 20 K/UL (150-450) L Mean Platelet Volume 8.0 FL (6.5-10.1) 10.0 FL (6.5-10.1) Neutrophils (%) (Auto) % (45.0-75.0) % (45.0-75.0) Lymphocytes (%) (Auto) % (20.0-45.0) % (20.0-45.0) Monocytes (%) (Auto) % (1.0-10.0) % (1.0-10.0) Eosinophils (%) (Auto) % (0.0-3.0) % (0.0-3.0) Basophils (%) (Auto) % (0.0-2.0) % (0.0-2.0) Differential Total Cells Counted 100 100 Neutrophils % (Manual) 35 % (45-75) L 56 % (45-75) Lymphocytes % (Manual) 52 % (20-45) H 5 % (20-45) L Monocytes % (Manual) 2 % (1-10) 13 % (1-10) H Eosinophils % (Manual) 0 % (0-3) 0 % (0-3) Basophils % (Manual) 1 % (0-2) 0 % (0-2) Band Neutrophils 10 % (0-8) H 21 % (0-8) H Nucleated Red Blood Cells 2 /100 WBC Platelet Estimate Decreased L Decreased L Platelet Morphology Normal Normal Hypochromasia 2+ 2+ Anisocytosis 2+ 2+ Microcytosis 1+ 1+ Macrocytosis Occasional Metamyelocytes % 2 % (0-0) H Myelocytes % 3 % (0-0) H Sodium Level 136 MMOL/L (136-145) Potassium Level 5.7 MMOL/L (3.5-5.1) H Chloride Level 99 MMOL/L (98-107) Carbon Dioxide Level 24 MMOL/L (21-32) Blood Urea Nitrogen 96 mg/dL (7-18) H Creatinine 6.5 MG/DL (0.55-1.30) H Estimat Glomerular Filtration Rate 8.3 mL/min (>60) Glucose Level 169 MG/DL (74-106) #H Calcium Level 7.7 MG/DL (8.5-10.1) L Gamma Glutamyl Transpeptidase 154 U/L (5-85) H Troponin I 0.648 ng/mL (0.000-0.056) Arterial Blood pH 7.275 (7.350-7.450) Arterial Blood Partial Pressure CO2 45.9 mmHg (35.0-45.0) H Arterial Blood Partial Pressure O2 93.2 mmHg (75.0-100.0) Arterial Blood HCO3 20.8 mmol/L (22.0-26.0) L Arterial Blood Oxygen Saturation 95.0 % (95-100) Arterial Blood Base Excess -5.6 (-2-2) L Javier Test Positive Current Medications Medications (Trade) Dose Ordered Sig/Maxi Route PRN Reason Start Time Stop Time Status Last Admin Dose Admin Acetaminophen (Tylenol) 500 mg Q4H PRN ORAL Mild Pain (1-3)/ Temp 100.4 07/07/20 07:00 08/06/20 06:59 Acyclovir (Zovirax) 200 mg TuThSa ORAL 07/07/20 09:00 08/06/20 08:59 Amikacin Protocol (Amikacin pharmacy to dose) 1 ea DAILY PRN MISC Per rx protocol 07/08/20 18:45 08/07/20 18:44 Barium Sulfate (Varibar Honey) 250 ml NOW PRN MC RAD 07/08/20 09:00 07/11/20 08:49 Barium Sulfate (Varibar Agnew) 240 ml NOW PRN MC RAD 07/08/20 09:00 07/11/20 08:49 Barium Sulfate (Varibar Pudding) 230 ml NOW PRN RAD 07/08/20 09:00 07/11/20 08:49 Barium Sulfate (Varibar Thin Liquid powder) 148 gm NOW PRN MC RAD 07/08/20 09:00 07/11/20 08:49 Calcium Acetate (Phoslo) 1,334 mg TIAC ORAL 07/07/20 11:30 10/05/20 11:29 Calcium Gluconate (Calcium Gluconate 10%) 1 gm ONCE IVP 07/09/20 14:00 07/09/20 15:00 Chlorhexidine Gluconate (Anne Marie-Hex 2%) 1 applic DAILY@2000 TOPIC 07/07/20 20:15 10/05/20 20:14 07/08/20 20:04 Dextrose 1,000 ml @ 50 mls/hr Q20H IV 07/08/20 14:00 08/07/20 13:59 07/09/20 09:24 Dextrose (Dextrose 50%) 25 ml Q30M PRN IV Hypoglycemia 07/08/20 08:15 10/06/20 08:14 07/08/20 11:13 Dextrose (Dextrose 50%) 50 ml Q30M PRN IV Hypoglycemia 07/08/20 08:15 10/06/20 08:14 Epoetin Emery (Epoetin Emery(ESRD on dialysis)) 6,000 unit THU-THU-THU SUBQ 07/09/20 21:00 10/07/20 20:59 Gabapentin (Neurontin) 100 mg QHS ORAL 07/07/20 21:00 08/06/20 20:59 Lidocaine (Lidoderm 5% PATCH) 1 patch DAILY TDERMAL 07/07/20 09:00 10/05/20 08:59 Meropenem 500 mg/ Sodium Chloride 50 ml @ 100 mls/hr Q24HRS IVPB 07/07/20 15:00 07/12/20 14:59 07/08/20 16:12 Mirtazapine (Remeron) 15 mg BEDTIME ORAL 07/07/20 21:00 10/05/20 20:59 Norepinephrine Bitartrate 250 ml @ 0 mls/hr Q24H IV 07/07/20 09:30 07/10/20 09:24 07/09/20 11:02 Ondansetron HCl (Zofran) 4 mg Q4H PRN IVP Nausea & Vomiting 07/08/20 09:45 08/07/20 09:44 07/08/20 23:37 Oxycodone HCl (Roxicodone) 5 mg Q12H PRN ORAL pain (8-10) 07/07/20 07:00 07/14/20 06:59 Pantoprazole (Protonix) 40 mg EVERY 12 HOURS IVP 07/08/20 21:00 08/07/20 20:59 07/09/20 09:24 Sennosides (Senokot) 8.6 mg DAILY PRN ORAL Constipation 07/07/20 07:00 08/06/20 06:59 Vancomycin HCl (Vanco pharmacy to dose) 1 ea DAILY PRN MISC Per rx protocol 07/07/20 13:30 08/06/20 13:29 Vitamin B Complex (Vitamin B Complex) 1 tab DAILY ORAL 07/07/20 09:00 10/05/20 08:59 Leyda Jensen MD Jul 09, 2020 12:20
--- NOTE | 2020-07-09 12:30 | NUR ---
NURSE NOTES: HD initiated per CHINO Gooden RN.
[2020-07-09] MEDS ORDERED: Lidocaine 1% MPF 10mg/ml 5ml INJ ONE (12:31)
[2020-07-09] MEDS ORDERED: Heparin1,000 units/500ml Premix(Conc:2 units/ml) INJ ONE (12:31)
--- NOTE | 2020-07-09 13:00 | NUR ---
NURSE NOTES: SpO2 noted in 80s - pt placed on non-rebreather mask.
--- NOTE | 2020-07-09 13:47 | Surgery Progress Note ---
Surgery Progress Note Subjective Additional Comments gram stain noted discussed with team plan for IJ line today will remove chest line after Objective Last 24 Hour Vital Signs Date Time Temp Pulse Resp B/P (MAP) Pulse Ox O2 Delivery O2 Flow Rate FiO2 07/09/20 13:00 99 29 122/61 (81) 98 07/09/20 12:00 Nasal Cannula 4.0 07/09/20 12:00 100 07/09/20 12:00 99 32 121/60 (80) 98 07/09/20 11:02 113/58 07/09/20 11:00 97 31 113/58 (76) 100 07/09/20 11:00 98.1 97 31 113/58 (76) 100 07/09/20 10:45 96 28 117/57 (77) 99 07/09/20 10:30 96 28 99/53 (68) 98 07/09/20 10:15 95 28 97/52 (67) 99 07/09/20 10:06 95 30 95/51 (66) 98 07/09/20 10:00 95 31 78/47 (57) 99 07/09/20 09:04 92 31 97/54 (68) 100 07/09/20 09:00 92 31 97/54 (68) 100 07/09/20 09:00 4.0 07/09/20 08:00 Nasal Cannula 4.0 07/09/20 08:00 99 07/09/20 08:00 97.8 100 31 115/63 (80) 99 07/09/20 07:00 99 33 92/56 (68) 99 07/09/20 06:00 99 34 107/62 (77) 99 07/09/20 05:00 97 34 102/63 (76) 98 07/09/20 04:22 101/54 07/09/20 04:00 98.4 97 34 101/53 (69) 99 07/09/20 04:00 Nasal Cannula 4.0 07/09/20 04:00 98 07/09/20 03:00 98 24 100/55 (70) 99 07/09/20 02:00 97 28 96/54 (68) 98 07/09/20 01:07 97 29 102/55 (71) 95 07/09/20 01:00 98 28 90/47 (61) 98 10/12/20 00:00 Nasal Cannula 4.0 07/09/20 00:00 94 07/09/20 00:00 98.6 98 29 91/57 (68) 100 07/08/20 23:00 99 28 103/65 (78) 100 07/08/20 22:00 100 28 101/58 (72) 100 07/08/20 21:00 97 29 92/64 (73) 88 07/08/20 20:30 101 35 101/58 (72) 99 07/08/20 20:15 103 26 97/58 (71) 96 07/08/20 20:07 109/63 07/08/20 20:00 98.8 104 33 109/63 (78) 98 07/08/20 20:00 104 07/08/20 20:00 Nasal Cannula 4.0 07/08/20 19:00 105 22 105/60 (75) 92 07/08/20 18:15 104 31 115/68 (84) 95 07/08/20 18:00 103 30 89/60 (70) 94 07/08/20 17:00 105 25 107/63 (78) 93 07/08/20 16:45 105 30 92/54 (67) 96 07/08/20 16:30 102 29 98/56 (70) 98 07/08/20 16:15 103 30 92/56 (68) 92 07/08/20 16:00 Nasal Cannula 4.0 07/08/20 16:00 103 07/08/20 16:00 98.8 102 27 96/54 (68) 91 07/08/20 14:45 106 26 98/60 (73) 99 07/08/20 14:30 106 32 102/62 (75) 100 07/08/20 14:15 103 29 81/46 (58) 97 07/08/20 14:00 106 34 87/57 (67) 97 I&O Intake and Output 07/08/20 07/09/20 19:00 07:00 Intake Total 1262.416 ml 1028.55 ml Output Total 18 ml 25 ml Balance 1244.416 ml 1003.55 ml Intake IV Total 1262.416 ml 1028.55 ml Output Urine Total 18 ml 25 ml # Bowel Movements 3 2 Cardiovascular: RSR Respiratory: decreased breath sounds Abdomen: soft, non-tender, present bowel sounds Extremities: no cyanosis Laboratory Tests Test 10/11/20 16:36 07/08/20 21:54 07/09/20 03:30 07/09/20 11:33 POC Whole Blood Glucose 142 MG/DL (74-106) H White Blood Count 4.6 K/UL (4.8-10.8) #L 3.5 K/UL (4.8-10.8) L Red Blood Count 2.73 M/UL (4.70-6.10) L 2.71 M/UL (4.70-6.10) L Hemoglobin 7.1 G/DL (14.2-18.0) L 7.0 G/DL (14.2-18.0) L Hematocrit 22.3 % (42.0-52.0) L 21.5 % (42.0-52.0) L Mean Corpuscular Volume 82 FL (80-99) 80 FL (80-99) Mean Corpuscular Hemoglobin 26.2 PG (27.0-31.0) L 25.8 PG (27.0-31.0) L Mean Corpuscular Hemoglobin Concent 32.1 G/DL (32.0-36.0) 32.4 G/DL (32.0-36.0) Red Cell Distribution Width 19.6 % (11.6-14.8) H 17.8 % (11.6-14.8) H Platelet Count 27 K/UL (150-450) #L 20 K/UL (150-450) L Mean Platelet Volume 8.0 FL (6.5-10.1) 10.0 FL (6.5-10.1) Neutrophils (%) (Auto) % (45.0-75.0) % (45.0-75.0) Lymphocytes (%) (Auto) % (20.0-45.0) % (20.0-45.0) Monocytes (%) (Auto) % (1.0-10.0) % (1.0-10.0) Eosinophils (%) (Auto) % (0.0-3.0) % (0.0-3.0) Basophils (%) (Auto) % (0.0-2.0) % (0.0-2.0) Differential Total Cells Counted 100 100 Neutrophils % (Manual) 35 % (45-75) L 56 % (45-75) Lymphocytes % (Manual) 52 % (20-45) H 5 % (20-45) L Monocytes % (Manual) 2 % (1-10) 13 % (1-10) H Eosinophils % (Manual) 0 % (0-3) 0 % (0-3) Basophils % (Manual) 1 % (0-2) 0 % (0-2) Band Neutrophils 10 % (0-8) H 21 % (0-8) H Nucleated Red Blood Cells 2 /100 WBC Platelet Estimate Decreased L Decreased L Platelet Morphology Normal Normal Hypochromasia 2+ 2+ Anisocytosis 2+ 2+ Microcytosis 1+ 1+ Macrocytosis Occasional Metamyelocytes % 2 % (0-0) H Myelocytes % 3 % (0-0) H Sodium Level 136 MMOL/L (136-145) Potassium Level 5.7 MMOL/L (3.5-5.1) H Chloride Level 99 MMOL/L (98-107) Carbon Dioxide Level 24 MMOL/L (21-32) Blood Urea Nitrogen 96 mg/dL (7-18) H Creatinine 6.5 MG/DL (0.55-1.30) H Estimat Glomerular Filtration Rate 8.3 mL/min (>60) Glucose Level 169 MG/DL (74-106) #H Calcium Level 7.7 MG/DL (8.5-10.1) L Gamma Glutamyl Transpeptidase 154 U/L (5-85) H Troponin I 0.648 ng/mL (0.000-0.056) Arterial Blood pH 7.275 (7.350-7.450) Arterial Blood Partial Pressure CO2 45.9 mmHg (35.0-45.0) H Arterial Blood Partial Pressure O2 93.2 mmHg (75.0-100.0) Arterial Blood HCO3 20.8 mmol/L (22.0-26.0) L Arterial Blood Oxygen Saturation 95.0 % (95-100) Arterial Blood Base Excess -5.6 (-2-2) L Javier Test Positive Plan Problems: (1) Anemia (2) Leukopenia (3) Thrombocytopenia (4) Sepsis Assessment & Plan: 80M in ICU leukopenia, lactic acidosis, fevers, thrombocytopenia, renal insufficiency, neutropenia. do not recommend left wall catheter removal at this time line does not seem infected and would await blood cultures and treat with abx high risk for bleeding from line removal and new placement fistula okay, HD as per renal no acute surgical intervention at this time will monitor closely and follow with exam cxr noted abx as per ID heme input trend labs diet DAILY ESTIMATED NEEDS: Needs based on ESRD + HD, CA/ 54.5kg 30-35 kcals/kg 8122-1757 total kcals 1.2-1.8 g protein/kg 65-98 g total protein Fluids per MD NUTRITION DIAGNOSIS: * Swallowing difficulty R/T dysphagia, lethargy as evidenced by w/ an order for NGT insertion, NPO at this time. 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) CURRENT DIET:NPO PO DIET RECOMMENDATIONS: WHEN SAFE FOR ORAL DIET -> RENAL/texture per DRYCLEANER ENTERAL NUTRITION RECOMMENDATIONS: W/ hemodynamic stability: Nepro @ 40ml/hr x 24 hrs to provide 960ml, 1728kcal, 78g prot, 698ml free water * FEED W/ HEMODYNAMIC STABILITY -> initiate Nepro @ 10ml/hr x 6hrs, advance 10ml q 4-6 hrs as tolerated to goal rate -> HOB over 30 degrees/ water flush per MD WITHOUT HEMODYNAMIC STABILITY, if able to keep HOB >30 degrees, rec trophic feeding of Nepro @ 5-10ml/hr ADDITIONAL RECOMMENDATIONS: * Per SNF: HT=62" LD=860pxq (06/29/20), daily calibrated bedscale wt * Monitor hemodynamic stability: "Levo on standby" at this time * Monitor lytes (K 5.3), check phos * TF rec as above when medically appropriate to feed and not safe for PO (5) Pneumonia (6) NSTEMI (non-ST elevated myocardial infarction) (7) ESRD (end stage renal disease) on dialysis (8) COVID-19 ruled out by laboratory testing (9) Shock (10) Elevated troponin Maurice Durán Jul 09, 2020 13:46
[2020-07-09] MEDS ORDERED: Calcium Gluconate 1gm/10ml vial IVP SCH (14:00)
--- NOTE | 2020-07-09 14:32 | Cardiac Electrophysiology PN ---
Assessment/Plan Assessment/Plan 1. Troponin elevation. The levels are low and likely due to demand ischemia in this patient with severe anemia as well as hypotension. He is on Levophed. His echocardiogram also showed ejection fraction of 40% and severe aortic stenosis, aortic valve area of 0.6. 2. Hypotension, due to sepsis in this patient with leukopenia. The patient is on broad-spectrum IV antibiotic and Levophed 10 Mcg 3. Pancytopenia. S/P blood and platelet transfusion, likely due to chemotherapy. 4. Hyperlipidemia, on Lipitor. 5. Severe aortic stenosis, aortic valve area of 0.6. 6. Congestive heart failure, ejection fraction only 40%. EFREN RN Subjective Subjective Confused and agitated in ICU being transferred to [facility]. On Levophed 10 Mcg Objective Last 24 Hour Vital Signs Date Time Temp Pulse Resp B/P (MAP) Pulse Ox O2 Delivery O2 Flow Rate FiO2 07/09/20 14:00 101 27 114/44 (67) 100 07/09/20 13:00 99 29 122/61 (81) 98 07/09/20 12:00 Nasal Cannula 4.0 07/09/20 12:00 100 07/09/20 12:00 99 32 121/60 (80) 98 07/09/20 11:30 94 33 91/48 (62) 99 07/09/20 11:15 91 30 94/68 (77) 99 07/09/20 11:02 113/58 07/09/20 11:00 98.1 97 31 113/58 (76) 100 07/09/20 10:45 96 28 117/57 (77) 99 07/09/20 10:30 96 28 99/53 (68) 98 07/09/20 10:15 95 28 97/52 (67) 99 07/09/20 10:06 95 30 95/51 (66) 98 07/09/20 10:00 95 31 78/47 (57) 99 07/09/20 09:45 98 29 81/52 (62) 92 07/09/20 09:30 100 34 92/51 (65) 97 07/09/20 09:15 97 34 95/56 (69) 100 07/09/20 09:04 92 31 97/54 (68) 100 07/09/20 09:00 92 31 97/54 (68) 100 07/09/20 09:00 4.0 07/09/20 08:00 Nasal Cannula 4.0 07/09/20 08:00 99 07/09/20 08:00 97.8 100 31 115/63 (80) 99 07/09/20 07:00 99 33 92/56 (68) 99 07/09/20 06:00 99 34 107/62 (77) 99 07/09/20 05:00 97 34 102/63 (76) 98 07/09/20 04:22 101/54 07/09/20 04:00 98.4 97 34 101/53 (69) 99 07/09/20 04:00 Nasal Cannula 4.0 07/09/20 04:00 98 07/09/20 03:00 98 24 100/55 (70) 99 07/09/20 02:00 97 28 96/54 (68) 98 07/09/20 01:07 97 29 102/55 (71) 95 07/09/20 01:00 98 28 90/47 (61) 98 07/09/20 00:00 Nasal Cannula 4.0 07/09/20 00:00 94 07/09/20 00:00 98.6 98 29 91/57 (68) 100 07/08/20 23:00 99 28 103/65 (78) 100 07/08/20 22:00 100 28 101/58 (72) 100 07/08/20 21:00 97 29 92/64 (73) 88 07/08/20 20:30 101 35 101/58 (72) 99 07/08/20 20:15 103 26 97/58 (71) 96 07/08/20 20:07 109/63 07/08/20 20:00 98.8 104 33 109/63 (78) 98 07/08/20 20:00 104 07/08/20 20:00 Nasal Cannula 4.0 07/08/20 19:00 105 22 105/60 (75) 92 07/08/20 18:15 104 31 115/68 (84) 95 07/08/20 18:00 103 30 89/60 (70) 94 07/08/20 17:00 105 25 107/63 (78) 93 07/08/20 16:45 105 30 92/54 (67) 96 07/08/20 16:30 102 29 98/56 (70) 98 07/08/20 16:15 103 30 92/56 (68) 92 07/08/20 16:00 Nasal Cannula 4.0 07/08/20 16:00 103 07/08/20 16:00 98.8 102 27 96/54 (68) 91 07/08/20 14:45 106 26 98/60 (73) 99 Intake and Output 07/08/20 07/09/20 19:00 07:00 Intake Total 1262.416 ml 1116.05 ml Output Total 18 ml 25 ml Balance 1244.416 ml 1091.05 ml Intake IV Total 1262.416 ml 1116.05 ml Output Urine Total 18 ml 25 ml # Bowel Movements 3 2 Laboratory Tests Test 07/08/20 16:36 07/08/20 21:54 07/09/20 03:30 07/09/20 11:33 POC Whole Blood Glucose 142 MG/DL (74-106) H White Blood Count 4.6 K/UL (4.8-10.8) #L 3.5 K/UL (4.8-10.8) L Red Blood Count 2.73 M/UL (4.70-6.10) L 2.71 M/UL (4.70-6.10) L Hemoglobin 7.1 G/DL (14.2-18.0) L 7.0 G/DL (14.2-18.0) L Hematocrit 22.3 % (42.0-52.0) L 21.5 % (42.0-52.0) L Mean Corpuscular Volume 82 FL (80-99) 80 FL (80-99) Mean Corpuscular Hemoglobin 26.2 PG (27.0-31.0) L 25.8 PG (27.0-31.0) L Mean Corpuscular Hemoglobin Concent 32.1 G/DL (32.0-36.0) 32.4 G/DL (32.0-36.0) Red Cell Distribution Width 19.6 % (11.6-14.8) H 17.8 % (11.6-14.8) H Platelet Count 27 K/UL (150-450) #L 20 K/UL (150-450) L Mean Platelet Volume 8.0 FL (6.5-10.1) 10.0 FL (6.5-10.1) Neutrophils (%) (Auto) % (45.0-75.0) % (45.0-75.0) Lymphocytes (%) (Auto) % (20.0-45.0) % (20.0-45.0) Monocytes (%) (Auto) % (1.0-10.0) % (1.0-10.0) Eosinophils (%) (Auto) % (0.0-3.0) % (0.0-3.0) Basophils (%) (Auto) % (0.0-2.0) % (0.0-2.0) Differential Total Cells Counted 100 100 Neutrophils % (Manual) 35 % (45-75) L 56 % (45-75) Lymphocytes % (Manual) 52 % (20-45) H 5 % (20-45) L Monocytes % (Manual) 2 % (1-10) 13 % (1-10) H Eosinophils % (Manual) 0 % (0-3) 0 % (0-3) Basophils % (Manual) 1 % (0-2) 0 % (0-2) Band Neutrophils 10 % (0-8) H 21 % (0-8) H Nucleated Red Blood Cells 2 /100 WBC Platelet Estimate Decreased L Decreased L Platelet Morphology Normal Normal Hypochromasia 2+ 2+ Anisocytosis 2+ 2+ Microcytosis 1+ 1+ Macrocytosis Occasional Metamyelocytes % 2 % (0-0) H Myelocytes % 3 % (0-0) H Sodium Level 136 MMOL/L (136-145) Potassium Level 5.7 MMOL/L (3.5-5.1) H Chloride Level 99 MMOL/L (98-107) Carbon Dioxide Level 24 MMOL/L (21-32) Blood Urea Nitrogen 96 mg/dL (7-18) H Creatinine 6.5 MG/DL (0.55-1.30) H Estimat Glomerular Filtration Rate 8.3 mL/min (>60) Glucose Level 169 MG/DL (74-106) #H Calcium Level 7.7 MG/DL (8.5-10.1) L Gamma Glutamyl Transpeptidase 154 U/L (5-85) H Troponin I 0.648 ng/mL (0.000-0.056) Arterial Blood pH 7.275 (7.350-7.450) Arterial Blood Partial Pressure CO2 45.9 mmHg (35.0-45.0) H Arterial Blood Partial Pressure O2 93.2 mmHg (75.0-100.0) Arterial Blood HCO3 20.8 mmol/L (22.0-26.0) L Arterial Blood Oxygen Saturation 95.0 % (95-100) Arterial Blood Base Excess -5.6 (-2-2) L Javier Test Positive Test 07/09/20 14:00 Lactic Acid Level 1.30 mmol/L (0.4-2.0) Microbiology Date/Time Source Procedure Growth Status 07/09/20 09:30 Nasopharynx SARS-CoV-2 RdRp Gene Assay - Final Complete 07/07/20 00:30 Blood Blood Culture - Final Klebsiella Pneumoniae Complete 07/07/20 00:15 Rectum - Final NO CARBAPENEM-RESISTANT ENTEROBACTERI... Complete 07/07/20 00:15 Rectum VRE Culture - Final NO VANCOMYCIN RESISTANT ENTEROCOCCUS ... Complete 07/07/20 00:15 Nasal Nares MRSA Culture - Final NO METHICILLIN RESISTANT STAPH AUREUS... Complete 07/07/20 00:15 Nasopharynx SARS-CoV-2 RdRp Gene Assay - Final Complete 07/07/20 00:15 Blood Blood Culture - Final Klebsiella Pneumoniae Complete Objective HEAD AND NECK: No JVD. LUNGS: Decreased breath sounds. CARDIOVASCULAR: Regular S1 and S2 with no gallop or murmur, tachycardic. ABDOMEN: Soft. EXTREMITIES: 1+ pitting edema. Fredi Colindres MD Jul 09, 2020 14:32
[2020-07-09] MEDS ORDERED: NS 275ml ONE (15:55)
[2020-07-09] MEDS ORDERED: Tubing Blood Filter IV ONE (15:55)
[2020-07-09] MEDS ORDERED: D5 1/2NS 1000ml IV ONE (15:55)
--- NOTE | 2020-07-09 16:30 | NUR ---
NURSE NOTES: Left message for Dr Colindres - pt in AFIB with rate 120s. Awaiting call back.
--- NOTE | 2020-07-09 16:40 | NUR ---
NURSE NOTES: post HD ABGs redrawn and relayed to Dr Mcclain. Pt placed on 4L O2 via simple mask at this time.
--- NOTE | 2020-07-09 17:26 | NUR ---
NURSE NOTES: Received call back from Dr Colindres with order for 0.25 mg digoxin IVP once.
--- NOTE | 2020-07-09 17:30 | NUR ---
NURSE NOTES: LIJ TLC placed per Dr Gandhi at bedside. Awaiting CXR confirmation.
[2020-07-09] MEDS ORDERED: Digoxin 0.5mg/2ml Inj IVP SCH ×2 (18:00→18:30)
--- NOTE | 2020-07-09 18:00 | NUR ---
NURSE NOTES: Levo titrated down to 10 mcg/min.
--- NOTE | 2020-07-09 18:10 | NUR ---
NURSE NOTES: Message left for Dr Colindres - pt not responding to digoxin. Remains in Afib with rate of 130s at this time. Awaiting call back.
--- NOTE | 2020-07-09 18:14 | Brief Operative Note ---
Immediate Post Operative Note Operative Note Pre-op Diagnosis: needs central IV access Procedure: L IJV central line Post-op Diagnosis: same as pre-op Surgeon: Americo Mcdaniel Anesthesia: local Specimen: none Complications: none Fluids: none Implant(s) used?: No Jose Francisco Mcdaniel MD Jul 09, 2020 18:14
--- NOTE | 2020-07-09 18:15 | NUR ---
NURSE NOTES: OK to use LIJ per Dr Gandhi - all lumens flushed and patent. Levo and D10 switched to LIJ at this time. Left chest permacath lines clamped. Dr Durán notified - states he will remove permacath tomorrow. Addendum: 07/09/20 at 2028 by Diana De La Paz RN Late entry: Levo also titrated down to 8 mcg/min.
--- NOTE | 2020-07-09 18:16 | NUR ---
RADIOLOGY NOTE: LEFT IJ CENTRAL VENOUS CATHETER PLACEMENT BY DR. SOFI NEUMANN. FA
--- NOTE | 2020-07-09 18:30 | NUR ---
NURSE NOTES: Call back received from Dr Colindres with new new order for additional dose of 0.25 mg digoxin IVP once. Addendum: 07/09/20 at 2028 by Diana De La Paz RN Late entry: Levo titrated down to 6 mcg/min.
--- NOTE | 2020-07-09 18:53 | Diagnostic Imaging Report ---
Indication: Shortness of breath Technique: One view of the chest Comparison: 07/07/2020 Findings: Less left chest tunneled central venous catheter remains. Less optimal inspiration currently. There is increased opacity at the left lung base, likely reflects increased parenchymal consolidation and pleural fluid. There is also generalized increased interstitial and airspace infiltrates versus edema. The heart size is upper limits normal. Impression: Increasing bilateral images and airspace infiltrates versus edema, with generalized and in particular increasing pleural fluid and parenchymal consolidation at the left lung base
--- NOTE | 2020-07-09 18:56 | NUR ---
NURSE NOTES: Left message for Dr Colindres - pt not responding to second dose of digoxin,
--- NOTE | 2020-07-09 19:02 | NUR ---
NURSE NOTES: Received call back from Dr Colindres - requested to be contact for HR>140. Will endorse to night manager PM.
--- NOTE | 2020-07-09 19:30 | NUR ---
NURSE HAND-OFF REPORT: Latest Vital Signs: Temperature 98.4 , Pulse 124 , B/P 100 /61 , Respiratory Rate 31 , O2 SAT 100 , Simple Mask, O2 Flow Rate 4.0 . Vital Sign Comment: BP 100/61 on 6 mcg/min of Levophed. EKG Rhythm: Atrial Fibrillation Rhythm change?: Ana MAGAÑA Notified?: Dr Bernadine MAGAÑA Response: call for HR>140 bpm (dig given twice) Latest [place] Fall Score: 50 Fall Risk: High Risk Safety Measures: Call light Within Reach, Bed Alarm Zone 1, Side Rails Side Rails x3, Bed position Low and Locked. Fall Precautions: Door Sign Bed in Lowest position Alarm on [place] Report given to Salena Anguiano RN.
--- NOTE | 2020-07-09 19:30 | NUR ---
NURSE NOTES: received pt on labored breathing, hypotensive , Afib with RVR, on levophed drip at6mcg/min and D10W at 50ml/hr infusing to left IJ , Site with drsg dry and intact, will continue to monitor.
[2020-07-09] MEDS ORDERED: OXYCODONE HCL5 M2 ORAL (19:44)
[2020-07-09] MEDS ORDERED: ASPIRIN EC81 MG ORAL (19:44)
[2020-07-09] MEDS ORDERED: DRONABINOL10 MG PO (19:44)
[2020-07-09] MEDS ORDERED: RENVELA800 MG ORAL (19:44)
[2020-07-09] MEDS ORDERED: LOSARTAN POTAS100 MG ORAL (19:44)
[2020-07-09] MEDS ORDERED: VITAMIN B COMP PO (19:44)
[2020-07-09] MEDS ORDERED: ZOFRAN4 M3 ORAL (19:44)
[2020-07-09] MEDS ORDERED: PANTOPRAZOLE SO40 MG ORAL (19:44)
[2020-07-09] MEDS ORDERED: ATORVASTATIN CA10 MG ORAL (19:44)
[2020-07-09] MEDS ORDERED: ACETAMINOPHEN500 M3 ORAL (19:44)
[2020-07-09] MEDS: Dyna-Hex 2% Top Sol 2oz TOPIC SCH (19:57)
[2020-07-09 20:33] LABS: CALCIUM 6.2 MG/DL (8.5-10.1); CREATININE 4.2 MG/DL (0.55-1.30); POTASSIUM 4.4 MMOL/L (3.5-5.1)
[2020-07-09] MEDS ORDERED: Epoetin Alfa-EPBX(ESRD on dialysis)3000 units/ml vial SUBQ SCH (21:00)
--- NOTE | 2020-07-09 21:00 | NUR ---
NURSE NOTES: Levophed drip up to 8mcg/min sBO on the 80s. will continue to monitor
--- NOTE | 2020-07-09 22:02 | NUR ---
NURSE NOTES: increase Levophed drip up to 10mcg/min. Sbp dropped into 80s
[2020-07-09] MEDS ORDERED: Vancomycin 1gm/D5W 275ml IVPB ONE ×2 (23:00)
--- NOTE | 2020-07-09 23:00 | NUR ---
NURSE NOTES: daughter called updated with pts condition, verbalized understanding
[2020-07-10] VITALS (44 sets, daily range): BP systolic 78–157; BP diastolic 47–96
--- NOTE | 2020-07-10 04:00 | NUR ---
NURSE NOTES: Fio2 down to 35% or 8L venturi mask
[2020-07-10] MEDS: Norepinephrine 4mg/NS Premix 250 ML IV SCH (05:09)
[2020-07-10] MEDS: Dextrose 10% 1,000 ML IV SCH (05:10)
[2020-07-10 05:42] LABS: HEMATOCRIT 20.2 % (42.0-52.0); MEAN CORPUSCULAR VOLUME 78 FL (80-99); PLATELET COUNT 12 K/UL (150-450); RED BLOOD COUNT 2.58 M/UL (4.70-6.10); RED CELL DISTRIBUTION WIDTH 17.9 % (11.6-14.8); WHITE BLOOD COUNT 7.8 K/UL (4.8-10.8)
[2020-07-10 05:43] LABS: HEMOGLOBIN 6.7 G/DL (14.2-18.0)
[2020-07-10 06:05] LABS: ALANINE AMINOTRANSFERASE 186 U/L (12-78); ALBUMIN 1.8 G/DL (3.4-5.0); ALBUMIN/GLOBULIN RATIO 0.5 (1.0-2.7); ALKALINE PHOSPHATASE 337 U/L (46-116); ANION GAP 12 mmol/L (5-15); ASPARTATE AMINO TRANSFERASE 71 U/L (15-37); BILIRUBIN,TOTAL 1.4 MG/DL (0.2-1.0); BLOOD UREA NITROGEN 68 mg/dL (7-18); CALCIUM 6.6 MG/DL (8.5-10.1); CARBON DIOXIDE 27 MMOL/L (21-32); CHLORIDE 99 MMOL/L (98-107); CREATININE 4.5 MG/DL (0.55-1.30); GAMMA GLUTAMYL TRANSPEPTIDASE 167 U/L (5-85); PHOSPHORUS 5.8 MG/DL (2.5-4.9); POTASSIUM 4.3 MMOL/L (3.5-5.1); SODIUM 137 MMOL/L (136-145)
[2020-07-10 06:11] LABS: BILIRUBIN,DIRECT 1.1 MG/DL (0.0-0.3)
--- NOTE | 2020-07-10 06:30 | NUR ---
NURSE NOTES: Dr white was aware with low hgb ,hgb and platelet ct with orders given for transfusion and was ordered,
--- NOTE | 2020-07-10 07:07 | Hematology/Onc Progress Note ---
Assessment/Plan Assessment/Plan ASSESSMENT/RECS # T cell lymphoma -- recently diagnosed, though patient confused and difficult to obtain further hx from him, also with sepsis with shock --> s/p 1 cycle chemo but requires to initiate shortly as is aggressive lymphoma --> recommend transfer to [facility] for chemo/care to [facility] # Pancytopenia with Neutropenic fever requires chemo and also with sepsis, PNA --> neupogen prn as long as ANC>1000 is goal --> neupogen was given 07/07 --> wbc 0.1-->1.1-->4.6-->3.5 --> hgb 7.5-->7.7->7-->6.7 --> plt 32-->15-->14-->20-->12 --> transfuse as needed --> obtain records [facility] --> EPO started --> 1 unit plt 07/09, 1 unit 07/10 # PNA with Acute toxic metabolic encephalopathy --> likely related to infection --> ABX elda/vanc --> levo gtt low dose # Elevated troponin -> per cards eval # T cell lymphoma # ESRD, on HD # DM # Hx of HTN # Recurrent left pleural effusion --> venturi mask # Diastolic CHF # Moderate aortic stenosis # HLD # Dvt ppx scds # Dispo transfer to [facility] for hloc given new lymphoma Appreciate consultation and bindu RN Subjective Allergies: Coded Allergies: LATEX, NATURAL RUBBER (Verified Allergy, Unknown, 07/07/20) MITOMYCIN (Verified Allergy, Unknown, 07/07/20) Uncoded Allergies: MYTOMYCIN (Allergy, Unknown, 07/07/20) All Systems: reviewed and negative except above Subjective 07/09 bindu Rn in icu, accepted just now [facility], to leave today, labs reviewed, stable, levo gtt 07/10 icu, elda and vanc, unable to transfer last nigt to [facility] as still on levo, plt lower, hgb low, transfuse today Objective Objective Current Medications Medications (Trade) Dose Ordered Sig/Maxi Route PRN Reason Start Time Stop Time Status Last Admin Dose Admin Acetaminophen (Tylenol) 500 mg Q4H PRN ORAL Mild Pain (1-3)/ Temp 100.4 07/07/20 07:00 08/06/20 06:59 Acyclovir (Zovirax) 200 mg TuThSa ORAL 07/07/20 09:00 08/06/20 08:59 Barium Sulfate (Varibar Honey) 250 ml NOW PRN RAD 07/08/20 09:00 07/11/20 08:49 Barium Sulfate (Varibar [place]) 240 ml NOW PRN RAD 07/08/20 09:00 07/11/20 08:49 Barium Sulfate (Varibar Pudding) 230 ml NOW PRN RAD 07/08/20 09:00 07/11/20 08:49 Barium Sulfate (Varibar Thin Liquid powder) 148 gm NOW PRN RAD 07/08/20 09:00 07/11/20 08:49 Calcium Acetate (Phoslo) 1,334 mg TIAC ORAL 07/07/20 11:30 10/05/20 11:29 Chlorhexidine Gluconate (Anne Marie-Hex 2%) 1 applic DAILY@2000 TOPIC 07/07/20 20:15 10/05/20 20:14 07/09/20 19:57 Dextrose 1,000 ml @ 50 mls/hr Q20H IV 07/08/20 14:00 08/07/20 13:59 07/10/20 05:10 Dextrose (Dextrose 50%) 25 ml Q30M PRN IV Hypoglycemia 07/08/20 08:15 10/06/20 08:14 07/08/20 11:13 Dextrose (Dextrose 50%) 50 ml Q30M PRN IV Hypoglycemia 07/08/20 08:15 10/06/20 08:14 Doxycycline Hyclate 100 mg/ Dextrose 100 ml @ 100 mls/hr Q12HR IV 07/09/20 21:00 07/16/20 20:59 07/09/20 21:25 Epoetin Emery (Epoetin Emery(ESRD on dialysis)) 6,000 unit THU-THU-THU SUBQ 07/09/20 21:00 10/07/20 20:59 07/09/20 21:25 Gabapentin (Neurontin) 100 mg QHS ORAL 07/07/20 21:00 08/06/20 20:59 Lidocaine (Lidoderm 5% PATCH) 1 patch DAILY TDERMAL 07/07/20 09:00 10/05/20 08:59 Meropenem 500 mg/ Sodium Chloride 50 ml @ 100 mls/hr Q24HRS IVPB 07/07/20 15:00 07/12/20 14:59 07/09/20 15:53 Mirtazapine (Remeron) 15 mg BEDTIME ORAL 07/07/20 21:00 10/05/20 20:59 Norepinephrine Bitartrate 250 ml @ 0 mls/hr Q24H IV 07/07/20 09:30 07/10/20 09:24 07/10/20 05:09 Ondansetron HCl (Zofran) 4 mg Q4H PRN IVP Nausea & Vomiting 07/08/20 09:45 08/07/20 09:44 07/08/20 23:37 Oxycodone HCl (Roxicodone) 5 mg Q12H PRN ORAL pain (8-10) 07/07/20 07:00 07/14/20 06:59 Pantoprazole (Protonix) 40 mg EVERY 12 HOURS IVP 07/08/20 21:00 08/07/20 20:59 07/09/20 21:24 Sennosides (Senokot) 8.6 mg DAILY PRN ORAL Constipation 07/07/20 07:00 08/06/20 06:59 Vancomycin HCl ([facility] pharmacy to dose) 1 ea DAILY PRN MISC Per rx protocol 07/07/20 13:30 08/06/20 13:29 Vitamin B Complex (Vitamin B Complex) 1 tab DAILY ORAL 07/07/20 09:00 10/05/20 08:59 Last 24 Hour Vital Signs Date Time Temp Pulse Resp B/P (MAP) Pulse Ox O2 Delivery O2 Flow Rate FiO2 07/10/20 06:00 126 29 93/56 (68) 98 07/10/20 05:30 122 29 115/66 (82) 98 07/10/20 05:09 132/75 07/10/20 05:00 122 34 132/75 (94) 07/10/20 04:30 121 31 118/65 (82) 96 07/10/20 04:00 Non-Rebreather 4.0 07/10/20 04:00 122 07/10/20 04:00 98.2 121 42 128/71 (90) 96 07/10/20 03:45 120 34 115/57 (76) 97 07/10/20 03:30 122 46 115/60 (78) 96 07/10/20 03:15 122 38 126/60 (82) 100 07/10/20 03:00 116 29 117/78 (91) 100 07/10/20 02:00 120 32 113/72 (86) 100 07/10/20 01:30 120 30 126/67 (86) 100 07/10/20 01:00 119 29 117/65 (82) 07/10/20 01:00 Non-Rebreather 4.0 07/10/20 00:30 120 34 124/68 (86) 100 07/10/20 00:00 112 07/10/20 00:00 98.4 120 28 114/66 (82) 100 07/09/20 23:31 116 25 84/47 (59) 100 07/09/20 23:30 115 24 83/50 (61) 100 07/09/20 22:32 100/60 07/09/20 22:15 121 29 103/63 (76) 07/09/20 22:00 122 32 89/43 (58) 100 07/09/20 21:45 120 29 107/48 (67) 100 07/09/20 21:30 120 29 106/58 (74) 100 07/09/20 21:15 116 30 101/56 (71) 100 07/09/20 21:00 121 29 94/50 (65) 100 07/09/20 21:00 96 Venturi Mask 8.0 35 07/09/20 20:45 118 29 91/52 (65) 100 07/09/20 20:30 120 31 113/48 (69) 100 07/09/20 20:15 118 30 102/52 (69) 100 07/09/20 20:00 120 07/09/20 20:00 98.0 120 31 102/52 (69) 100 07/09/20 20:00 Simple Mask 5.0 07/09/20 20:00 123 31 133/96 (108) 100 07/09/20 19:30 124 31 100/61 (74) 100 07/09/20 19:15 120 33 118/55 (76) 100 07/09/20 19:00 128 31 100/57 (71) 100 07/09/20 18:45 131 36 134/56 (82) 100 07/09/20 18:44 131 36 134/56 (82) 100 07/09/20 18:36 138 07/09/20 18:30 127 27 121/68 (85) 07/09/20 18:15 132 28 120/65 (83) 07/09/20 18:00 135 32 128/66 (86) 100 07/09/20 17:58 140 07/09/20 17:00 4.0 07/09/20 17:00 133 31 107/54 (71) 91 07/09/20 16:00 Non-Rebreather 4.0 07/09/20 16:00 121 37 98/62 (74) 97 07/09/20 16:00 15.0 07/09/20 16:00 98.4 131 30 115/79 (91) 99 07/09/20 16:00 134 07/09/20 15:59 104/74 07/09/20 15:00 128 30 130/63 (85) 83 07/09/20 14:00 101 27 114/44 (67) 100 07/09/20 13:00 99 29 122/61 (81) 98 07/09/20 12:00 15.0 07/09/20 12:00 Nasal Cannula 4.0 07/09/20 12:00 100 07/09/20 12:00 99 32 121/60 (80) 98 07/09/20 11:45 91 30 100/53 (69) 98 07/09/20 11:30 94 33 91/48 (62) 99 07/09/20 11:15 91 30 94/68 (77) 99 07/09/20 11:02 113/58 07/09/20 11:00 98.1 97 31 113/58 (76) 100 07/09/20 10:45 96 28 117/57 (77) 99 07/09/20 10:30 96 28 99/53 (68) 98 07/09/20 10:15 95 28 97/52 (67) 99 07/09/20 10:06 95 30 95/51 (66) 98 07/09/20 10:00 95 31 78/47 (57) 99 07/09/20 09:45 98 29 81/52 (62) 92 07/09/20 09:30 100 34 92/51 (65) 97 07/09/20 09:15 97 34 95/56 (69) 100 07/09/20 09:04 92 31 97/54 (68) 100 07/09/20 09:00 92 31 97/54 (68) 100 07/09/20 09:00 4.0 07/09/20 08:00 Nasal Cannula 4.0 07/09/20 08:00 99 07/09/20 08:00 97.8 100 31 115/63 (80) 99 07/09/20 07:00 99 33 92/56 (68) 99 07/09/20 06:00 99 34 107/62 (77) 99 07/09/20 05:00 97 34 102/63 (76) 98 07/09/20 04:22 101/54 07/09/20 04:00 98.4 97 34 101/53 (69) 99 07/09/20 04:00 Nasal Cannula 4.0 07/09/20 04:00 98 07/09/20 03:00 98 24 100/55 (70) 99 07/09/20 02:00 97 28 96/54 (68) 98 07/09/20 01:07 97 29 102/55 (71) 95 07/09/20 01:00 98 28 90/47 (61) 98 07/09/20 00:00 Nasal Cannula 4.0 07/09/20 00:00 94 07/09/20 00:00 98.6 98 29 91/57 (68) 100 07/08/20 23:00 99 28 103/65 (78) 100 07/08/20 22:00 100 28 101/58 (72) 100 07/08/20 21:00 97 29 92/64 (73) 88 07/08/20 20:30 101 35 101/58 (72) 99 07/08/20 20:15 103 26 97/58 (71) 96 07/08/20 20:07 109/63 07/08/20 20:00 98.8 104 33 109/63 (78) 98 07/08/20 20:00 104 07/08/20 20:00 Nasal Cannula 4.0 07/08/20 19:00 105 22 105/60 (75) 92 07/08/20 18:15 104 31 115/68 (84) 95 07/08/20 18:00 103 30 89/60 (70) 94 07/08/20 17:00 105 25 107/63 (78) 93 07/08/20 16:45 105 30 92/54 (67) 96 07/08/20 16:30 102 29 98/56 (70) 98 07/08/20 16:15 103 30 92/56 (68) 92 07/08/20 16:00 Nasal Cannula 4.0 07/08/20 16:00 103 07/08/20 16:00 98.8 102 27 96/54 (68) 91 07/08/20 14:45 106 26 98/60 (73) 99 07/08/20 14:30 106 32 102/62 (75) 100 07/08/20 14:15 103 29 81/46 (58) 97 07/08/20 14:00 106 34 87/57 (67) 97 07/08/20 13:45 106 30 79/56 (64) 93 07/08/20 13:30 107 28 94/56 (69) 95 07/08/20 13:15 109 31 99/57 (71) 99 07/08/20 13:00 108 30 82/52 (62) 97 07/08/20 12:15 110 31 102/63 (76) 100 07/08/20 12:00 Nasal Cannula 4.0 07/08/20 12:00 99.0 110 32 95/65 (75) 100 07/08/20 12:00 110 07/08/20 11:55 118/56 07/08/20 11:45 115 29 118/56 (76) 86 07/08/20 11:30 113 30 113/73 (86) 99 07/08/20 11:15 111 30 99/61 (74) 97 07/08/20 11:00 110 25 96/62 (73) 100 07/08/20 10:45 112 24 99/77 (84) 98 07/08/20 10:30 110 28 96/58 (71) 99 07/08/20 10:15 112 30 94/57 (69) 88 07/08/20 10:00 111 32 93/59 (70) 74 07/08/20 09:45 111 25 85/56 (66) 99 07/08/20 09:18 2.0 07/08/20 09:15 112 23 89/51 (64) 94 07/08/20 09:00 112 28 91/57 (68) 92 07/08/20 08:45 111 30 122/97 (105) 96 07/08/20 08:30 111 30 125/74 (91) 93 07/08/20 08:24 112 30 85/46 (59) 64 07/08/20 08:15 112 25 65/49 (54) 84 07/08/20 08:00 115 07/08/20 08:00 Nasal Cannula 4.0 07/08/20 08:00 99.0 136 31 94/65 (75) 89 Intake and Output 07/09/20 07/10/20 19:00 07:00 Intake Total 1240.625 ml 1313.00 ml Output Total 5 ml 20 ml Balance 1235.625 ml 1293.00 ml Intake Oral 0 ml IV Total 1240.625 ml 1313.00 ml Output Urine Total 5 ml 20 ml # Bowel Movements 1 1 Labs Test 07/07/20 09:31 07/07/20 11:15 07/07/20 11:18 07/07/20 14:30 Arterial Blood pH 7.402 (7.350-7.450) Arterial Blood Partial Pressure CO2 31.8 mmHg (35.0-45.0) Arterial Blood Partial Pressure O2 58.4 mmHg (75.0-100.0) Arterial Blood HCO3 19.3 mmol/L (22.0-26.0) Arterial Blood Oxygen Saturation 88.7 % (95-100) Arterial Blood Base Excess -4.9 (-2-2) Javier Test Positive White Blood Count 1.1 K/UL (4.8-10.8) Red Blood Count 2.91 M/UL (4.70-6.10) Hemoglobin 7.6 G/DL (14.2-18.0) Hematocrit 23.7 % (42.0-52.0) Mean Corpuscular Volume 82 FL (80-99) Mean Corpuscular Hemoglobin 26.0 PG (27.0-31.0) Mean Corpuscular Hemoglobin Concent 31.9 G/DL (32.0-36.0) Red Cell Distribution Width 19.2 % (11.6-14.8) Platelet Count 15 K/UL (150-450) Mean Platelet Volume 12.2 FL (6.5-10.1) Neutrophils (%) (Auto) % (45.0-75.0) Lymphocytes (%) (Auto) % (20.0-45.0) Monocytes (%) (Auto) % (1.0-10.0) Eosinophils (%) (Auto) % (0.0-3.0) Basophils (%) (Auto) % (0.0-2.0) Differential Total Cells Counted 100 Neutrophils % (Manual) 60 % (45-75) Lymphocytes % (Manual) 33 % (20-45) Monocytes % (Manual) 5 % (1-10) Eosinophils % (Manual) 0 % (0-3) Basophils % (Manual) 0 % (0-2) Band Neutrophils 2 % (0-8) Platelet Estimate Decreased Platelet Morphology Normal Hypochromasia 1+ Anisocytosis 2+ Sodium Level 138 MMOL/L (136-145) Potassium Level 5.6 MMOL/L (3.5-5.1) Chloride Level 103 MMOL/L (98-107) Carbon Dioxide Level 22 MMOL/L (21-32) Blood Urea Nitrogen 108 mg/dL (7-18) Creatinine 7.8 MG/DL (0.55-1.30) Estimat Glomerular Filtration Rate 6.7 mL/min (>60) Glucose Level 64 MG/DL (74-106) Lactic Acid Level 3.90 mmol/L (0.4-2.0) 3.70 mmol/L (0.66-2.22) Calcium Level 7.9 MG/DL (8.5-10.1) Troponin I 0.119 ng/mL (0.000-0.056) Test 07/07/20 21:40 07/07/20 23:30 07/08/20 06:00 07/08/20 10:00 Lactic Acid Level 3.50 mmol/L (0.4-2.0) 2.50 mmol/L (0.66-2.22) 1.50 mmol/L (0.4-2.0) White Blood Count 0.9 K/UL (4.8-10.8) Red Blood Count 3.04 M/UL (4.70-6.10) Hemoglobin 7.7 G/DL (14.2-18.0) Hematocrit 23.6 % (42.0-52.0) Mean Corpuscular Volume 78 FL (80-99) Mean Corpuscular Hemoglobin 25.3 PG (27.0-31.0) Mean Corpuscular Hemoglobin Concent 32.5 G/DL (32.0-36.0) Red Cell Distribution Width 17.2 % (11.6-14.8) Platelet Count 14 K/UL (150-450) Mean Platelet Volume 12.5 FL (6.5-10.1) Neutrophils (%) (Auto) % (45.0-75.0) Lymphocytes (%) (Auto) % (20.0-45.0) Monocytes (%) (Auto) % (1.0-10.0) Eosinophils (%) (Auto) % (0.0-3.0) Basophils (%) (Auto) % (0.0-2.0) Differential Total Cells Counted 100 Neutrophils % (Manual) 67 % (45-75) Lymphocytes % (Manual) 14 % (20-45) Monocytes % (Manual) 9 % (1-10) Eosinophils % (Manual) 0 % (0-3) Basophils % (Manual) 0 % (0-2) Band Neutrophils 10 % (0-8) Platelet Estimate Decreased Platelet Morphology Normal Hypochromasia 1+ Anisocytosis 2+ Sodium Level 138 MMOL/L (136-145) Potassium Level 5.0 MMOL/L (3.5-5.1) Chloride Level 100 MMOL/L (98-107) Carbon Dioxide Level 23 MMOL/L (21-32) Anion Gap 15 mmol/L (5-15) Blood Urea Nitrogen 72 mg/dL (7-18) Creatinine 5.3 MG/DL (0.55-1.30) Estimat Glomerular Filtration Rate 10.5 mL/min (>60) Glucose Level 35 MG/DL (74-106) Hemoglobin A1c 6.2 % (4.3-6.0) Uric Acid 3.2 MG/DL (2.6-7.2) Calcium Level 7.8 MG/DL (8.5-10.1) Phosphorus Level 6.0 MG/DL (2.5-4.9) Magnesium Level 2.0 MG/DL (1.8-2.4) Iron Level 14 ug/dL (50-175) Total Iron Binding Capacity 90 ug/dL (250-450) Percent Iron Saturation 16 % (15-50) Unsaturated Iron Binding 76 ug/dL (112-346) Ferritin > 2000 NG/ML (8-388) Total Bilirubin 0.9 MG/DL (0.2-1.0) Gamma Glutamyl Transpeptidase 62 U/L (5-85) Aspartate Amino Transf (AST/SGOT) 65 U/L (15-37) Alanine Aminotransferase (ALT/SGPT) 41 U/L (12-78) Alkaline Phosphatase 94 U/L (46-116) Ammonia 14 umol/L (11-32) Troponin I 0.704 ng/mL (0.000-0.056) C-Reactive Protein, Quantitative 67.1 mg/dL (0.00-0.90) Pro-B-Type Natriuretic Peptide > 29612 pg/mL (0-125) Total Protein 5.5 G/DL (6.4-8.2) Albumin 1.7 G/DL (3.4-5.0) Globulin 3.8 g/dL Albumin/Globulin Ratio 0.4 (1.0-2.7) Triglycerides Level 98 MG/DL (30-150) Cholesterol Level 54 MG/DL (< 200) LDL Cholesterol 5 mg/dL (<100) HDL Cholesterol 15 MG/DL (40-60) Cholesterol/HDL Ratio 3.6 (3.3-4.4) Vitamin B12 Level > 2000 PG/ML (193-986) Folate 64.0 NG/ML (8.6-58.9) Thyroid Stimulating Hormone (TSH) 0.655 uiU/mL (0.358-3.740) Random Vancomycin Level 9.7 ug/mL HIV (1&2) Antibody Rapid Negative (NEGATIVE) Stool Occult Blood Negative (NEGATIVE) Test 07/08/20 10:56 07/08/20 16:36 07/08/20 21:54 07/09/20 03:30 POC Whole Blood Glucose 142 MG/DL (74-106) White Blood Count 4.6 K/UL (4.8-10.8) 3.5 K/UL (4.8-10.8) Red Blood Count 2.73 M/UL (4.70-6.10) 2.71 M/UL (4.70-6.10) Hemoglobin 7.1 G/DL (14.2-18.0) 7.0 G/DL (14.2-18.0) Hematocrit 22.3 % (42.0-52.0) 21.5 % (42.0-52.0) Mean Corpuscular Volume 82 FL (80-99) 80 FL (80-99) Mean Corpuscular Hemoglobin 26.2 PG (27.0-31.0) 25.8 PG (27.0-31.0) Mean Corpuscular Hemoglobin Concent 32.1 G/DL (32.0-36.0) 32.4 G/DL (32.0-36.0) Red Cell Distribution Width 19.6 % (11.6-14.8) 17.8 % (11.6-14.8) Platelet Count 27 K/UL (150-450) 20 K/UL (150-450) Mean Platelet Volume 8.0 FL (6.5-10.1) 10.0 FL (6.5-10.1) Neutrophils (%) (Auto) % (45.0-75.0) % (45.0-75.0) Lymphocytes (%) (Auto) % (20.0-45.0) % (20.0-45.0) Monocytes (%) (Auto) % (1.0-10.0) % (1.0-10.0) Eosinophils (%) (Auto) % (0.0-3.0) % (0.0-3.0) Basophils (%) (Auto) % (0.0-2.0) % (0.0-2.0) Differential Total Cells Counted 100 100 Neutrophils % (Manual) 35 % (45-75) 56 % (45-75) Lymphocytes % (Manual) 52 % (20-45) 5 % (20-45) Monocytes % (Manual) 2 % (1-10) 13 % (1-10) Eosinophils % (Manual) 0 % (0-3) 0 % (0-3) Basophils % (Manual) 1 % (0-2) 0 % (0-2) Band Neutrophils 10 % (0-8) 21 % (0-8) Nucleated Red Blood Cells 2 /100 WBC Platelet Estimate Decreased Decreased Platelet Morphology Normal Normal Hypochromasia 2+ 2+ Anisocytosis 2+ 2+ Microcytosis 1+ 1+ Macrocytosis Occasional Metamyelocytes % 2 % (0-0) Myelocytes % 3 % (0-0) Sodium Level 136 MMOL/L (136-145) Potassium Level 5.7 MMOL/L (3.5-5.1) Chloride Level 99 MMOL/L (98-107) Carbon Dioxide Level 24 MMOL/L (21-32) Blood Urea Nitrogen 96 mg/dL (7-18) Creatinine 6.5 MG/DL (0.55-1.30) Estimat Glomerular Filtration Rate 8.3 mL/min (>60) Glucose Level 169 MG/DL (74-106) Calcium Level 7.7 MG/DL (8.5-10.1) Gamma Glutamyl Transpeptidase 154 U/L (5-85) Troponin I 0.648 ng/mL (0.000-0.056) Test 07/09/20 11:33 07/09/20 14:00 07/09/20 16:38 07/09/20 20:00 Arterial Blood pH 7.275 (7.350-7.450) 7.364 (7.350-7.450) Arterial Blood Partial Pressure CO2 45.9 mmHg (35.0-45.0) 45.3 mmHg (35.0-45.0) Arterial Blood Partial Pressure O2 93.2 mmHg (75.0-100.0) 252.2 mmHg (75.0-100.0) Arterial Blood HCO3 20.8 mmol/L (22.0-26.0) 25.2 mmol/L (22.0-26.0) Arterial Blood Oxygen Saturation 95.0 % (95-100) 99.0 % (95-100) Arterial Blood Base Excess -5.6 (-2-2) -0.2 (-2-2) Javier Test Positive Positive Lactic Acid Level 1.30 mmol/L (0.4-2.0) Sodium Level 139 MMOL/L (136-145) Potassium Level 4.4 MMOL/L (3.5-5.1) Chloride Level 99 MMOL/L (98-107) Carbon Dioxide Level 25 MMOL/L (21-32) Anion Gap 15 mmol/L (5-15) Blood Urea Nitrogen 61 mg/dL (7-18) Creatinine 4.2 MG/DL (0.55-1.30) Estimat Glomerular Filtration Rate 13.7 mL/min (>60) Glucose Level 179 MG/DL (74-106) Calcium Level 6.2 MG/DL (8.5-10.1) Random Vancomycin Level 15.5 ug/mL Test 07/10/20 04:00 White Blood Count 7.8 K/UL (4.8-10.8) Red Blood Count 2.58 M/UL (4.70-6.10) Hemoglobin 6.7 G/DL (14.2-18.0) Hematocrit 20.2 % (42.0-52.0) Mean Corpuscular Volume 78 FL (80-99) Mean Corpuscular Hemoglobin 25.9 PG (27.0-31.0) Mean Corpuscular Hemoglobin Concent 33.2 G/DL (32.0-36.0) Red Cell Distribution Width 17.9 % (11.6-14.8) Platelet Count 12 K/UL (150-450) Mean Platelet Volume 12.8 FL (6.5-10.1) Neutrophils (%) (Auto) % (45.0-75.0) Lymphocytes (%) (Auto) % (20.0-45.0) Monocytes (%) (Auto) % (1.0-10.0) Eosinophils (%) (Auto) % (0.0-3.0) Basophils (%) (Auto) % (0.0-2.0) Sodium Level 137 MMOL/L (136-145) Potassium Level 4.3 MMOL/L (3.5-5.1) Chloride Level 99 MMOL/L (98-107) Carbon Dioxide Level 27 MMOL/L (21-32) Anion Gap 12 mmol/L (5-15) Blood Urea Nitrogen 68 mg/dL (7-18) Creatinine 4.5 MG/DL (0.55-1.30) Estimat Glomerular Filtration Rate 12.6 mL/min (>60) Glucose Level 178 MG/DL (74-106) Lactic Acid Level 2.50 mmol/L (0.4-2.0) Uric Acid 3.5 MG/DL (2.6-7.2) Calcium Level 6.6 MG/DL (8.5-10.1) Phosphorus Level 5.8 MG/DL (2.5-4.9) Magnesium Level 2.2 MG/DL (1.8-2.4) Total Bilirubin 1.4 MG/DL (0.2-1.0) Direct Bilirubin 1.1 MG/DL (0.0-0.3) Gamma Glutamyl Transpeptidase 167 U/L (5-85) Aspartate Amino Transf (AST/SGOT) 71 U/L (15-37) Alanine Aminotransferase (ALT/SGPT) 186 U/L (12-78) Alkaline Phosphatase 337 U/L (46-116) Troponin I 0.268 ng/mL (0.000-0.056) Pro-B-Type Natriuretic Peptide > 72294 pg/mL (0-125) Total Protein 5.5 G/DL (6.4-8.2) Albumin 1.8 G/DL (3.4-5.0) Globulin 3.7 g/dL Albumin/Globulin Ratio 0.5 (1.0-2.7) Micro Microbiology Date/Time Source Procedure Growth Status 07/09/20 09:30 Nasopharynx SARS-CoV-2 RdRp Gene Assay - Final Complete Height (Feet): 5 Height (Inches): 6.00 Weight (Pounds): 140 Objective Physical Exam General Appearance: no apparent distress, lethargic Lines, tubes and drains: other - R chest dial catheter HEENT: normocephalic, atraumatic, anicteric Neck: non-tender, supple Respiratory/Chest: venturi mask++ Cardiovascular/Chest: tachycardia - ST with BBB Abdomen: normal bowel sounds, non tender, soft Extremities: normal capillary refill Neurologic: abnormal gait, other - lethargic moves all extremities Musculoskeletal: atrophy - BLE Aung Monroe MD Jul 10, 2020 07:07
--- NOTE | 2020-07-10 07:42 | NUR ---
NURSE HAND-OFF REPORT: Latest Vital Signs: Temperature 98.2 , Pulse 121 , B/P 126 /56 , Respiratory Rate 27 , O2 SAT 98 , Non-Rebreather, O2 Flow Rate 4.0 . Vital Sign Comment: EKG Rhythm: Atrial Fibrillation Rhythm change?: N MD Notified?: - MD Response: Latest Samaniego Fall Score: 50 Fall Risk: High Risk Safety Measures: Call light Within Reach, Bed Alarm Zone 1, Side Rails Side Rails x3, Bed position Low and Locked. Fall Precautions: Yellow Socks Yellow Gown Door Sign Patient Fall Education Report given to Livia LECHUGA.
--- NOTE | 2020-07-10 07:43 | NUR ---
NURSE NOTES: Received patient in bed. On venturi mask at FiO2 35. Oxygen saturation 95% in the monitor. Remains Atrial fib in the environmental monitoring specialist. Bed in lowest position. Droplet isolation observed. Patient open eyes, unable to follow commands, non verbal. On continuous IVF of D10 running at 50ml/hour, and levophed drip at 12mcg/hour. Will continue plan of care.
[2020-07-10] MEDS: Acyclovir 200mg Cap ORAL SCH (09:00)
[2020-07-10] MEDS: Vitamin B Complex Tab ORAL SCH (09:00)
[2020-07-10] MEDS: Pantoprazole Inj IVP SCH (09:02)
--- NOTE | 2020-07-10 09:51 | Pulmonolgy Critical Care Note ---
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 by IR via L jigilar old line still present, pending removal serial troponin minimally elevated cardio eval appreciated elevated troponin likelyl due to demand ischemia 2 to sepsis and severe pancytopenia ECHO with rEF 40-45%, severe pulmonary HTN and severe O2 titrate to keep sat above 92% CXR 07/09 with incerasing left pleural effusion and consolidation vs edema ; had HD 07/09 fup with CXR and ABG today s/p Granix x 2 1 u PLT and 1 u PRBC this am as ordered by [facility] HD as per nephro with close monitoring of volumes and renal parameters , done 07/09 Venous Duplex BLE NGT SCD on transfer to [facility] for a higher level of care via [facility] ambulance later today monitor BS, HgA1c 6.2, IVF with D10 , BS better case discussed and evaluated by supervising physician Critical Care - Objective Last 24 Hour Vital Signs Date Time Temp Pulse Resp B/P (MAP) Pulse Ox O2 Delivery O2 Flow Rate FiO2 07/10/20 09:00 116 28 143/71 (95) 98 07/10/20 08:15 97 Venturi Mask 8.0 35 07/10/20 08:07 120 07/10/20 08:00 Venturi Mask 8.0 07/10/20 08:00 124 29 106/58 (74) 99 07/10/20 07:30 123 31 127/71 (89) 99 07/10/20 07:00 121 27 126/56 (79) 98 07/10/20 06:00 126 29 93/56 (68) 98 07/10/20 05:30 122 29 115/66 (82) 98 07/10/20 05:09 132/75 07/10/20 05:00 122 34 132/75 (94) 07/10/20 04:30 121 31 118/65 (82) 96 07/10/20 04:00 Non-Rebreather 4.0 07/10/20 04:00 122 07/10/20 04:00 98.2 121 42 128/71 (90) 96 07/10/20 03:45 120 34 115/57 (76) 97 07/10/20 03:30 122 46 115/60 (78) 96 07/10/20 03:15 122 38 126/60 (82) 100 07/10/20 03:00 116 29 117/78 (91) 100 07/10/20 02:00 120 32 113/72 (86) 100 07/10/20 01:30 120 30 126/67 (86) 100 07/10/20 01:00 119 29 117/65 (82) 07/10/20 01:00 Non-Rebreather 4.0 07/10/20 00:30 120 34 124/68 (86) 100 07/10/20 00:00 112 07/10/20 00:00 98.4 120 28 114/66 (82) 100 07/09/20 23:31 116 25 84/47 (59) 100 07/09/20 23:30 115 24 83/50 (61) 100 07/09/20 22:32 100/60 07/09/20 22:15 121 29 103/63 (76) 07/09/20 22:00 122 32 89/43 (58) 100 07/09/20 21:45 120 29 107/48 (67) 100 07/09/20 21:30 120 29 106/58 (74) 100 07/09/20 21:15 116 30 101/56 (71) 100 07/09/20 21:00 121 29 94/50 (65) 100 07/09/20 21:00 96 Venturi Mask 8.0 35 07/09/20 20:45 118 29 91/52 (65) 100 07/09/20 20:30 120 31 113/48 (69) 100 07/09/20 20:15 118 30 102/52 (69) 100 07/09/20 20:00 120 07/09/20 20:00 98.0 120 31 102/52 (69) 100 07/09/20 20:00 Simple Mask 5.0 07/09/20 20:00 123 31 133/96 (108) 100 07/09/20 19:30 124 31 100/61 (74) 100 07/09/20 19:15 120 33 118/55 (76) 100 07/09/20 19:00 128 31 100/57 (71) 100 07/09/20 18:45 131 36 134/56 (82) 100 07/09/20 18:44 131 36 134/56 (82) 100 07/09/20 18:36 138 07/09/20 18:30 127 27 121/68 (85) 07/09/20 18:15 132 28 120/65 (83) 07/09/20 18:00 135 32 128/66 (86) 100 07/09/20 17:58 140 07/09/20 17:00 4.0 07/09/20 17:00 133 31 107/54 (71) 91 07/09/20 16:00 Non-Rebreather 4.0 07/09/20 16:00 121 37 98/62 (74) 97 07/09/20 16:00 15.0 07/09/20 16:00 98.4 131 30 115/79 (91) 99 07/09/20 16:00 134 07/09/20 15:59 104/74 07/09/20 15:00 128 30 130/63 (85) 83 07/09/20 14:00 101 27 114/44 (67) 100 07/09/20 13:00 99 29 122/61 (81) 98 07/09/20 12:00 15.0 07/09/20 12:00 Nasal Cannula 4.0 07/09/20 12:00 100 07/09/20 12:00 99 32 121/60 (80) 98 07/09/20 11:45 91 30 100/53 (69) 98 07/09/20 11:30 94 33 91/48 (62) 99 07/09/20 11:15 91 30 94/68 (77) 99 07/09/20 11:02 113/58 07/09/20 11:00 98.1 97 31 113/58 (76) 100 07/09/20 10:45 96 28 117/57 (77) 99 07/09/20 10:30 96 28 99/53 (68) 98 07/09/20 10:15 95 28 97/52 (67) 99 07/09/20 10:06 95 30 95/51 (66) 98 07/09/20 10:00 95 31 78/47 (57) 99 07/09/20 09:45 98 29 81/52 (62) 92 Objective: General Appearance: no apparent distress, awake, confused Lines, tubes and drains: R chest dual lumen catheter, R AV fistula + bruit/thrill HEENT: normocephalic, atraumatic, anicteric, 35^ VM on Neck: non-tender, supple Respiratory/Chest: no accessory muscle use, few scattered crackles at bases Cardiovascular/Chest: A fib with RVR Abdomen: normal bowel sounds, non tender, soft Extremities: normal capillary refill Neurologic: abnormal gait, moves all extremities, awake, but confused Musculoskeletal: atrophy - BLE Micro: Microbiology Date/Time Source Procedure Growth Status 07/09/20 09:30 Nasopharynx SARS-CoV-2 RdRp Gene Assay - Final Complete Accucheck: 169 Critical Care - Subjective ROS Limited/Unobtainable: Yes Interval Events: was not transferred to [facility] yesterday due to tachycardia developed A fib with RVR, received 1 dose of Digoxin HD done 07/09 new CL placed by radiologist at the bedside still has old line, pending removal today BCX + Klebsiella still in A fib tachycardic and tachypneic on 35% V mask CXR1 with increasing bilateral airspace infiltrates versus edema, with and in particular increasing pleural fluid and parenchymal consolidation at the left lung base on levo 10 mcg/hr remains afberile, WBC up to 7.8 Hgb 6.7 and PLT 12 pending transfusion of 1 u PRBC and 1 u plateletpheresis already ordered by heme Condition: critical IV Access: central - L jugular CL new, old L subclavian catheter EKG Rhythm: Atrial Fibrillation FI02: 35 Drips: Levophed 10 mcg/hr I&O: Intake and Output 07/09/20 07/10/20 19:00 07:00 Intake Total 1240.625 ml 1363.00 ml Output Total 5 ml 20 ml Balance 1235.625 ml 1343.00 ml Intake Oral 0 ml IV Total 1240.625 ml 1363.00 ml Output Urine Total 5 ml 20 ml # Bowel Movements 1 1 CXR: CXR 07/09-increasing bilateral images and airspace infiltrates versus edema, with generalized and in particular increasing pleural fluid and parenchymal consolidation at the left lung base Dannie Mcclain MD 07/11/202048: Critical Care - Asmt/Plan Assessment/Plan: Patient seen and examined with PARTS ROOM ASSISTANT and I agree with the above formulated assessment and plan. Time Spent (Minutes): 40 - cc Giovanna Minor NP Jul 10, 2020 09:51 Dannie Mcclain MD Jul 11, 2020 20:49
--- NOTE | 2020-07-10 10:47 | Surgery Progress Note ---
Surgery Progress Note Subjective Additional Comments labs noted plt low new line placed IJ plan remove infected tunneled line today not transferred as on pressors Objective Last 24 Hour Vital Signs Date Time Temp Pulse Resp B/P (MAP) Pulse Ox O2 Delivery O2 Flow Rate FiO2 07/10/20 10:00 133 34 145/96 (112) 98 07/10/20 09:45 123 25 108/58 (75) 98 07/10/20 09:30 125 25 111/53 (72) 98 07/10/20 09:15 126 29 143/71 (95) 97 07/10/20 09:00 116 28 143/71 (95) 98 07/10/20 08:15 97 Venturi Mask 8.0 35 07/10/20 08:07 120 07/10/20 08:00 Venturi Mask 8.0 07/10/20 08:00 124 29 106/58 (74) 99 07/10/20 07:30 123 31 127/71 (89) 99 07/10/20 07:00 121 27 126/56 (79) 98 07/10/20 06:00 126 29 93/56 (68) 98 07/10/20 05:30 122 29 115/66 (82) 98 07/10/20 05:09 132/75 07/10/20 05:00 122 34 132/75 (94) 07/10/20 04:30 121 31 118/65 (82) 96 07/10/20 04:00 Non-Rebreather 4.0 07/10/20 04:00 122 07/10/20 04:00 98.2 121 42 128/71 (90) 96 07/10/20 03:45 120 34 115/57 (76) 97 07/10/20 03:30 122 46 115/60 (78) 96 07/10/20 03:15 122 38 126/60 (82) 100 07/10/20 03:00 116 29 117/78 (91) 100 07/10/20 02:00 120 32 113/72 (86) 100 07/10/20 01:30 120 30 126/67 (86) 100 07/10/20 01:00 119 29 117/65 (82) 07/10/20 01:00 Non-Rebreather 4.0 07/10/20 00:30 120 34 124/68 (86) 100 07/10/20 00:00 112 07/10/20 00:00 98.4 120 28 114/66 (82) 100 07/09/20 23:31 116 25 84/47 (59) 100 07/09/20 23:30 115 24 83/50 (61) 100 07/09/20 22:32 100/60 07/09/20 22:15 121 29 103/63 (76) 07/09/20 22:00 122 32 89/43 (58) 100 07/09/20 21:45 120 29 107/48 (67) 100 07/09/20 21:30 120 29 106/58 (74) 100 07/09/20 21:15 116 30 101/56 (71) 100 07/09/20 21:00 121 29 94/50 (65) 100 07/09/20 21:00 96 Venturi Mask 8.0 35 07/09/20 20:45 118 29 91/52 (65) 100 07/09/20 20:30 120 31 113/48 (69) 100 07/09/20 20:15 118 30 102/52 (69) 100 07/09/20 20:00 120 07/09/20 20:00 98.0 120 31 102/52 (69) 100 07/09/20 20:00 Simple Mask 5.0 07/09/20 20:00 123 31 133/96 (108) 100 07/09/20 19:30 124 31 100/61 (74) 100 07/09/20 19:15 120 33 118/55 (76) 100 07/09/20 19:00 128 31 100/57 (71) 100 07/09/20 18:45 131 36 134/56 (82) 100 07/09/20 18:44 131 36 134/56 (82) 100 07/09/20 18:36 138 07/09/20 18:30 127 27 121/68 (85) 07/09/20 18:15 132 28 120/65 (83) 07/09/20 18:00 135 32 128/66 (86) 100 07/09/20 17:58 140 07/09/20 17:00 4.0 07/09/20 17:00 133 31 107/54 (71) 91 07/09/20 16:00 Non-Rebreather 4.0 07/09/20 16:00 121 37 98/62 (74) 97 07/09/20 16:00 15.0 07/09/20 16:00 98.4 131 30 115/79 (91) 99 07/09/20 16:00 134 07/09/20 15:59 104/74 07/09/20 15:00 128 30 130/63 (85) 83 07/09/20 14:00 101 27 114/44 (67) 100 07/09/20 13:00 99 29 122/61 (81) 98 07/09/20 12:00 15.0 07/09/20 12:00 Nasal Cannula 4.0 07/09/20 12:00 100 07/09/20 12:00 99 32 121/60 (80) 98 07/09/20 11:45 91 30 100/53 (69) 98 07/09/20 11:30 94 33 91/48 (62) 99 07/09/20 11:15 91 30 94/68 (77) 99 07/09/20 11:02 113/58 07/09/20 11:00 98.1 97 31 113/58 (76) 100 I&O Intake and Output 07/09/20 07/10/20 19:00 07:00 Intake Total 1240.625 ml 1363.00 ml Output Total 5 ml 20 ml Balance 1235.625 ml 1343.00 ml Intake Oral 0 ml IV Total 1240.625 ml 1363.00 ml Output Urine Total 5 ml 20 ml # Bowel Movements 1 1 Cardiovascular: RSR Respiratory: decreased breath sounds Abdomen: soft, non-tender, present bowel sounds Extremities: no tenderness, no cyanosis Laboratory Tests Test 07/09/20 11:33 07/09/20 14:00 07/09/20 16:38 07/09/20 20:00 Arterial Blood pH 7.275 (7.350-7.450) 7.364 (7.350-7.450) Arterial Blood Partial Pressure CO2 45.9 mmHg (35.0-45.0) H 45.3 mmHg (35.0-45.0) H Arterial Blood Partial Pressure O2 93.2 mmHg (75.0-100.0) 252.2 mmHg (75.0-100.0) H Arterial Blood HCO3 20.8 mmol/L (22.0-26.0) L 25.2 mmol/L (22.0-26.0) Arterial Blood Oxygen Saturation 95.0 % (95-100) 99.0 % (95-100) Arterial Blood Base Excess -5.6 (-2-2) L -0.2 (-2-2) Javier Test Positive Positive Lactic Acid Level 1.30 mmol/L (0.4-2.0) Sodium Level 139 MMOL/L (136-145) Potassium Level 4.4 MMOL/L (3.5-5.1) Chloride Level 99 MMOL/L (98-107) Carbon Dioxide Level 25 MMOL/L (21-32) Anion Gap 15 mmol/L (5-15) Blood Urea Nitrogen 61 mg/dL (7-18) H Creatinine 4.2 MG/DL (0.55-1.30) H Estimat Glomerular Filtration Rate 13.7 mL/min (>60) Glucose Level 179 MG/DL (74-106) H Calcium Level 6.2 MG/DL (8.5-10.1) L Random Vancomycin Level 15.5 ug/mL Test 07/10/20 04:00 07/10/20 08:03 07/10/20 10:15 White Blood Count 7.8 K/UL (4.8-10.8) # Red Blood Count 2.58 M/UL (4.70-6.10) L Hemoglobin 6.7 G/DL (14.2-18.0) *L Hematocrit 20.2 % (42.0-52.0) L Mean Corpuscular Volume 78 FL (80-99) L Mean Corpuscular Hemoglobin 25.9 PG (27.0-31.0) L Mean Corpuscular Hemoglobin Concent 33.2 G/DL (32.0-36.0) Red Cell Distribution Width 17.9 % (11.6-14.8) H Platelet Count 12 K/UL (150-450) L Mean Platelet Volume 12.8 FL (6.5-10.1) H Neutrophils (%) (Auto) % (45.0-75.0) Lymphocytes (%) (Auto) % (20.0-45.0) Monocytes (%) (Auto) % (1.0-10.0) Eosinophils (%) (Auto) % (0.0-3.0) Basophils (%) (Auto) % (0.0-2.0) Differential Total Cells Counted 100 Neutrophils % (Manual) 60 % (45-75) Lymphocytes % (Manual) 2 % (20-45) L Monocytes % (Manual) 6 % (1-10) Eosinophils % (Manual) 0 % (0-3) Basophils % (Manual) 0 % (0-2) Band Neutrophils 32 % (0-8) H Platelet Estimate Decreased L Platelet Morphology Normal Anisocytosis 1+ Sodium Level 137 MMOL/L (136-145) Potassium Level 4.3 MMOL/L (3.5-5.1) Chloride Level 99 MMOL/L (98-107) Carbon Dioxide Level 27 MMOL/L (21-32) Anion Gap 12 mmol/L (5-15) Blood Urea Nitrogen 68 mg/dL (7-18) H Creatinine 4.5 MG/DL (0.55-1.30) H Estimat Glomerular Filtration Rate 12.6 mL/min (>60) Glucose Level 178 MG/DL (74-106) H Lactic Acid Level 2.50 mmol/L (0.4-2.0) H Pending Uric Acid 3.5 MG/DL (2.6-7.2) Calcium Level 6.6 MG/DL (8.5-10.1) L Phosphorus Level 5.8 MG/DL (2.5-4.9) H Magnesium Level 2.2 MG/DL (1.8-2.4) Total Bilirubin 1.4 MG/DL (0.2-1.0) H Direct Bilirubin 1.1 MG/DL (0.0-0.3) H Gamma Glutamyl Transpeptidase 167 U/L (5-85) H Aspartate Amino Transf (AST/SGOT) 71 U/L (15-37) H Alanine Aminotransferase (ALT/SGPT) 186 U/L (12-78) H Alkaline Phosphatase 337 U/L (46-116) H Troponin I 0.268 ng/mL (0.000-0.056) C-Reactive Protein, Quantitative 36.6 mg/dL (0.00-0.90) H Pro-B-Type Natriuretic Peptide > 72385 pg/mL (0-125) H Total Protein 5.5 G/DL (6.4-8.2) L Albumin 1.8 G/DL (3.4-5.0) L Globulin 3.7 g/dL Albumin/Globulin Ratio 0.5 (1.0-2.7) L Arterial Blood pH 7.359 (7.350-7.450) Arterial Blood Partial Pressure CO2 46.0 mmHg (35.0-45.0) H Arterial Blood Partial Pressure O2 78.0 mmHg (75.0-100.0) Arterial Blood HCO3 25.3 mmol/L (22.0-26.0) Arterial Blood Oxygen Saturation 93.9 % (95-100) L Arterial Blood Base Excess -0.2 (-2-2) Javier Test Positive Plan Problems: (1) Anemia (2) Leukopenia (3) Thrombocytopenia (4) Sepsis Assessment & Plan: 80M in ICU leukopenia, lactic acidosis, fevers, thrombocytopenia, renal insufficiency, neutropenia. do not recommend left wall catheter removal at this time line does not seem infected and would await blood cultures and treat with abx high risk for bleeding from line removal and new placement fistula okay, HD as per renal no acute surgical intervention at this time will monitor closely and follow with exam cxr noted abx as per ID heme input trend labs diet new line in prior tunneled line to come out given infection risk DAILY ESTIMATED NEEDS: Needs based on ESRD + HD, CA/ 54.5kg 30-35 kcals/kg [id number] total kcals 1.2-1.8 g protein/kg 65-98 g total protein Fluids per MD NUTRITION DIAGNOSIS: * Swallowing difficulty R/T dysphagia, lethargy as evidenced by w/ an order for NGT insertion, NPO at this time. 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) CURRENT DIET:NPO PO DIET RECOMMENDATIONS: WHEN SAFE FOR ORAL DIET -> RENAL/texture per [employer] ENTERAL NUTRITION RECOMMENDATIONS: W/ hemodynamic stability: Nepro @ 40ml/hr x 24 hrs to provide 960ml, 1728kcal, 78g prot, 698ml free water * FEED W/ HEMODYNAMIC STABILITY -> initiate Nepro @ 10ml/hr x 6hrs, advance 10ml q 4-6 hrs as tolerated to goal rate -> HOB over 30 degrees/ water flush per MD WITHOUT HEMODYNAMIC STABILITY, if able to keep HOB >30 degrees, rec trophic feeding of Nepro @ 5-10ml/hr ADDITIONAL RECOMMENDATIONS: * Per SNF: HT=62" HE=533cku (06/29/20), daily calibrated bedscale wt * Monitor hemodynamic stability: "Levo on standby" at this time * Monitor lytes (K 5.3), check phos * TF rec as above when medically appropriate to feed and not safe for PO (5) Pneumonia (6) NSTEMI (non-ST elevated myocardial infarction) (7) ESRD (end stage renal disease) on dialysis (8) COVID-19 ruled out by laboratory testing (9) Shock (10) Elevated troponin Maurice Durán Jul 10, 2020 10:47
--- NOTE | 2020-07-10 11:00 | NUR ---
NURSE NOTES: Started blood transfusion of 1 PRBC. Will monitor for adverse transfusion reaction.
--- NOTE | 2020-07-10 11:52 | Cardiac Electrophysiology PN ---
Assessment/Plan Assessment/Plan 1. Troponin elevation. The levels are low and likely due to demand ischemia in this patient with severe anemia as well as hypotension. He is on Levophed. EF 40% and severe aortic stenosis, aortic valve area of 0.6. 2. Septic shock in this patient with leukopenia. The patient is on broad-spectrum IV antibiotic and Levophed 20 Mcg 3. Atrial fib with RVR. Got Dig 0.5 iv yesterday. Will check Dig level today Still tachy. Can't use betablocker or Cardizem for low BP Start Amiodarone drip 4. Severe aortic stenosis, aortic valve area of 0.6. 5. Congestive heart failure, ejection fraction only 40%. 6. Pancytopenia. S/P blood and platelet transfusion, likely due to chemotherapy. 7. Hyperlipidemia, on Lipitor. EFREN RN Subjective Subjective Confused and agitated in ICU. Transfer to [facility] yesterday was cancelled due to Low BP. Now on Levophed 20 Mcg. Getting PRBC for Hb 6.7 and Platelet transfusion is pending Had Atrial fib with RVR 150s and I gave iv Dig 0.25 x2. HR still 120-130s Objective Last 24 Hour Vital Signs Date Time Temp Pulse Resp B/P (MAP) Pulse Ox O2 Delivery O2 Flow Rate FiO2 07/10/20 11:09 133/57 07/10/20 11:00 98.0 121 29 133/57 (82) 98 07/10/20 10:45 125 32 128/59 (82) 98 07/10/20 10:30 123 20 107/52 (70) 98 07/10/20 10:15 121 24 107/59 (75) 98 07/10/20 10:00 133 34 145/96 (112) 98 07/10/20 09:45 123 25 108/58 (75) 98 07/10/20 09:30 125 25 111/53 (72) 98 07/10/20 09:15 126 29 143/71 (95) 97 07/10/20 09:00 116 28 143/71 (95) 98 07/10/20 08:15 97 Venturi Mask 8.0 35 07/10/20 08:07 120 07/10/20 08:00 Venturi Mask 8.0 07/10/20 08:00 124 29 106/58 (74) 99 07/10/20 07:30 123 31 127/71 (89) 99 07/10/20 07:00 121 27 126/56 (79) 98 07/10/20 06:00 126 29 93/56 (68) 98 07/10/20 05:30 122 29 115/66 (82) 98 07/10/20 05:09 132/75 07/10/20 05:00 122 34 132/75 (94) 07/10/20 04:30 121 31 118/65 (82) 96 07/10/20 04:00 Non-Rebreather 4.0 07/10/20 04:00 122 07/10/20 04:00 98.2 121 42 128/71 (90) 96 07/10/20 03:45 120 34 115/57 (76) 97 07/10/20 03:30 122 46 115/60 (78) 96 07/10/20 03:15 122 38 126/60 (82) 100 07/10/20 03:00 116 29 117/78 (91) 100 07/10/20 02:00 120 32 113/72 (86) 100 07/10/20 01:30 120 30 126/67 (86) 100 07/10/20 01:00 119 29 117/65 (82) 07/10/20 01:00 Non-Rebreather 4.0 07/10/20 00:30 120 34 124/68 (86) 100 07/10/20 00:00 112 07/10/20 00:00 98.4 120 28 114/66 (82) 100 07/09/20 23:31 116 25 84/47 (59) 100 07/09/20 23:30 115 24 83/50 (61) 100 07/09/20 22:32 100/60 07/09/20 22:15 121 29 103/63 (76) 07/09/20 22:00 122 32 89/43 (58) 100 07/09/20 21:45 120 29 107/48 (67) 100 07/09/20 21:30 120 29 106/58 (74) 100 07/09/20 21:15 116 30 101/56 (71) 100 07/09/20 21:00 121 29 94/50 (65) 100 07/09/20 21:00 96 Venturi Mask 8.0 35 07/09/20 20:45 118 29 91/52 (65) 100 07/09/20 20:30 120 31 113/48 (69) 100 07/09/20 20:15 118 30 102/52 (69) 100 07/09/20 20:00 120 07/09/20 20:00 98.0 120 31 102/52 (69) 100 07/09/20 20:00 Simple Mask 5.0 07/09/20 20:00 123 31 133/96 (108) 100 07/09/20 19:30 124 31 100/61 (74) 100 07/09/20 19:15 120 33 118/55 (76) 100 07/09/20 19:00 128 31 100/57 (71) 100 07/09/20 18:45 131 36 134/56 (82) 100 07/09/20 18:44 131 36 134/56 (82) 100 07/09/20 18:36 138 07/09/20 18:30 127 27 121/68 (85) 07/09/20 18:15 132 28 120/65 (83) 07/09/20 18:00 135 32 128/66 (86) 100 07/09/20 17:58 140 07/09/20 17:00 4.0 07/09/20 17:00 133 31 107/54 (71) 91 07/09/20 16:00 Non-Rebreather 4.0 07/09/20 16:00 121 37 98/62 (74) 97 07/09/20 16:00 15.0 07/09/20 16:00 98.4 131 30 115/79 (91) 99 07/09/20 16:00 134 07/09/20 15:59 104/74 07/09/20 15:00 128 30 130/63 (85) 83 07/09/20 14:00 101 27 114/44 (67) 100 07/09/20 13:00 99 29 122/61 (81) 98 07/09/20 12:00 15.0 07/09/20 12:00 Nasal Cannula 4.0 07/09/20 12:00 100 07/09/20 12:00 99 32 121/60 (80) 98 Intake and Output 07/09/20 07/10/20 19:00 07:00 Intake Total 1240.625 ml 993.75 ml Output Total 5 ml 20 ml Balance 1235.625 ml 973.75 ml Intake Oral 0 ml IV Total 1240.625 ml 993.75 ml Output Urine Total 5 ml 20 ml # Bowel Movements 1 1 Laboratory Tests Test 07/09/20 14:00 07/09/20 16:38 07/09/20 20:00 07/10/20 04:00 Lactic Acid Level 1.30 mmol/L (0.4-2.0) 2.50 mmol/L (0.4-2.0) H Arterial Blood pH 7.364 (7.350-7.450) Arterial Blood Partial Pressure CO2 45.3 mmHg (35.0-45.0) H Arterial Blood Partial Pressure O2 252.2 mmHg (75.0-100.0) H Arterial Blood HCO3 25.2 mmol/L (22.0-26.0) Arterial Blood Oxygen Saturation 99.0 % (95-100) Arterial Blood Base Excess -0.2 (-2-2) Javier Test Positive Sodium Level 139 MMOL/L (136-145) 137 MMOL/L (136-145) Potassium Level 4.4 MMOL/L (3.5-5.1) 4.3 MMOL/L (3.5-5.1) Chloride Level 99 MMOL/L (98-107) 99 MMOL/L (98-107) Carbon Dioxide Level 25 MMOL/L (21-32) 27 MMOL/L (21-32) Anion Gap 15 mmol/L (5-15) 12 mmol/L (5-15) Blood Urea Nitrogen 61 mg/dL (7-18) H 68 mg/dL (7-18) H Creatinine 4.2 MG/DL (0.55-1.30) H 4.5 MG/DL (0.55-1.30) H Estimat Glomerular Filtration Rate 13.7 mL/min (>60) 12.6 mL/min (>60) Glucose Level 179 MG/DL (74-106) H 178 MG/DL (74-106) H Calcium Level 6.2 MG/DL (8.5-10.1) L 6.6 MG/DL (8.5-10.1) L Random Vancomycin Level 15.5 ug/mL White Blood Count 7.8 K/UL (4.8-10.8) # Red Blood Count 2.58 M/UL (4.70-6.10) L Hemoglobin 6.7 G/DL (14.2-18.0) *L Hematocrit 20.2 % (42.0-52.0) L Mean Corpuscular Volume 78 FL (80-99) L Mean Corpuscular Hemoglobin 25.9 PG (27.0-31.0) L Mean Corpuscular Hemoglobin Concent 33.2 G/DL (32.0-36.0) Red Cell Distribution Width 17.9 % (11.6-14.8) H Platelet Count 12 K/UL (150-450) L Mean Platelet Volume 12.8 FL (6.5-10.1) H Neutrophils (%) (Auto) % (45.0-75.0) Lymphocytes (%) (Auto) % (20.0-45.0) Monocytes (%) (Auto) % (1.0-10.0) Eosinophils (%) (Auto) % (0.0-3.0) Basophils (%) (Auto) % (0.0-2.0) Differential Total Cells Counted 100 Neutrophils % (Manual) 60 % (45-75) Lymphocytes % (Manual) 2 % (20-45) L Monocytes % (Manual) 6 % (1-10) Eosinophils % (Manual) 0 % (0-3) Basophils % (Manual) 0 % (0-2) Band Neutrophils 32 % (0-8) H Platelet Estimate Decreased L Platelet Morphology Normal Anisocytosis 1+ Uric Acid 3.5 MG/DL (2.6-7.2) Phosphorus Level 5.8 MG/DL (2.5-4.9) H Magnesium Level 2.2 MG/DL (1.8-2.4) Total Bilirubin 1.4 MG/DL (0.2-1.0) H Direct Bilirubin 1.1 MG/DL (0.0-0.3) H Gamma Glutamyl Transpeptidase 167 U/L (5-85) H Aspartate Amino Transf (AST/SGOT) 71 U/L (15-37) H Alanine Aminotransferase (ALT/SGPT) 186 U/L (12-78) H Alkaline Phosphatase 337 U/L (46-116) H Troponin I 0.268 ng/mL (0.000-0.056) C-Reactive Protein, Quantitative 36.6 mg/dL (0.00-0.90) H Pro-B-Type Natriuretic Peptide > 55089 pg/mL (0-125) H Total Protein 5.5 G/DL (6.4-8.2) L Albumin 1.8 G/DL (3.4-5.0) L Globulin 3.7 g/dL Albumin/Globulin Ratio 0.5 (1.0-2.7) L Digoxin Level Pending Test 07/10/20 08:03 07/10/20 10:15 07/10/20 11:08 Arterial Blood pH 7.359 (7.350-7.450) 7.316 (7.350-7.450) Arterial Blood Partial Pressure CO2 46.0 mmHg (35.0-45.0) H 50.6 mmHg (35.0-45.0) H Arterial Blood Partial Pressure O2 78.0 mmHg (75.0-100.0) 72.4 mmHg (75.0-100.0) L Arterial Blood HCO3 25.3 mmol/L (22.0-26.0) 25.3 mmol/L (22.0-26.0) Arterial Blood Oxygen Saturation 93.9 % (95-100) L 92.5 % (95-100) L Arterial Blood Base Excess -0.2 (-2-2) -0.9 (-2-2) Javier Test Positive Positive Lactic Acid Level 2.20 mmol/L (0.4-2.0) H Microbiology Date/Time Source Procedure Growth Status 07/09/20 09:30 Nasopharynx SARS-CoV-2 RdRp Gene Assay - Final Complete Objective HEAD AND NECK: No JVD. LUNGS: Decreased breath sounds. CARDIOVASCULAR: Irregular S1 and S2 with no gallop or murmur, tachycardic. ABDOMEN: Soft. EXTREMITIES: 1+ pitting edema. Fredi Colindres MD Jul 10, 2020 11:52
--- NOTE | 2020-07-10 13:10 | NUR ---
RD ASSESSMENT & RECOMMENDATIONS SEE CARE ACTIVITY FOR COMPLETE ASSESSMENT DAILY ESTIMATED NEEDS: Needs based on ESRD + HD, CA/ 54.5kg 30-35 kcals/kg 5475-0346 total kcals 1.2-1.8 g protein/kg 65-98 g total protein Fluids per MD NUTRITION DIAGNOSIS: * Swallowing difficulty R/T dysphagia, lethargy as evidenced by NPO at this time, on venturi mask, hypotensive, on pressor support. 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 -> wnl) CURRENT DIET:NPO PO DIET RECOMMENDATIONS: WHEN SAFE FOR ORAL DIET -> RENAL/texture per DIRECTOR [employer]LE[employer] NUTRITION RECOMMENDATIONS: W/ hemodynamic stability: Nepro @ 40ml/hr x 24 hrs to provide 960ml, 1728kcal, 78g prot, 698ml free water * FEED W/ HEMODYNAMIC STABILITY -> W/ GI access, initiate Nepro @ 10ml/hr x 6hrs, advance 10ml q 4-6 hrs as tolerated to goal rate -> HOB over 30 degrees/ water flush per MD WITHOUT HEMODYNAMIC STABILITY, if able to keep HOB >30 degrees, rec trophic feeding of Nepro @ 5-10ml/hr ADDITIONAL RECOMMENDATIONS: * Per SNF: HT=62" [id number] (06/29/20), daily calibrated bedscale wt * Monitor hemodynamic stability: LEVO @ 20MCG * Monitor NPO status (day 3), ability to feed -> not HD stable, without GI access * Accuchecks for close BG monitoring
--- NOTE | 2020-07-10 13:27 | Diagnostic Imaging Report ---
Indication: Shortness of breath Technique: One view of the chest Comparison: 07/09/2020 Findings: Again demonstrated is a left jugular central venous catheter, left jugular tunneled central venous catheter. Bilateral left greater than right infiltrates versus pulmonary edema is unchanged. There is suggestion of increased left pleural effusion Impression: Increasing left pleural effusion. Other stable findings as described, over one day
--- NOTE | 2020-07-10 13:35 | NUR ---
NURSE NOTES: Dr. Durán at bedside, he removed patient's left chest tunneled central venous cath. And Dr. Durán ordered to culture cath tip. Sent to lab per protocol.
--- NOTE | 2020-07-10 13:40 | NUR ---
RADIOLOGY DEPT., CHEST X-RAY PERFORMED.-P.DYE
--- NOTE | 2020-07-10 13:41 | NUR ---
CASE MANAGEMENT: REVIEW SI: SEPSIS . A-FIB w/RVR . CHF T 97.8 HR 124 RR 35 BP 78/47 SAT 97% VENTURI MASK 8.0 H/H 6.7/20.2 LACTIC ACID 2.20 IS: DIGOXIN IV 3XW LEVOPHED IV Q24HR VIBRAMYCIN IV Q12HR EPOETIN SUBQ MWF PROTONIX IV Q12HR MEROPENEM IV Q24HR ICU STATUS DCP: PATIENT IS FROM [facility]
--- NOTE | 2020-07-10 14:00 | NUR ---
NURSE NOTES: 1 PRBC transfused. No adverse transfusion reaction observed.
--- NOTE | 2020-07-10 14:12 | Diagnostic Imaging Report ---
Indication: The central venous access Technique: Procedure performed at bedside. Procedural timeout performed. Ultrasound confirms patent compressible left internal jugular vein. Total sterile technique, including sterile probe cover and sterile gel, sterile gloves, hand hygiene, hat, mask, sterile gown, large sterile drape, and preparation with 2% chlorhexidine utilized.Local anesthesia with 1% lidocaine. Under real-time ultrasound guidance route visualization of the needle tip entering the vein, puncture left internal jugular vein using 21-gauge micropuncture needle, passage 108 guidewire, insertion 4 [place] micropuncture introducer, passage 0.035 guidewire, over which was passed serial dilators and then a triple-lumen 20 cm long central venous catheter. Completion chest radiograph obtained, demonstrating catheter tip position at high right atrium. Impression: Successful placement of left jugular central venous catheter, as described.
--- NOTE | 2020-07-10 15:10 | NUR ---
NURSE NOTES: Plateletpheresis transfusion started. Vital signs stable. Will continue to monitor for adverse transfusion reaction.
--- NOTE | 2020-07-10 15:17 | Nephrology Progress Note ---
Assessment/Plan Problem List: (1) ESRD (end stage renal disease) on dialysis (2) Thrombocytopenia (3) Leukopenia (4) Anemia (5) Elevated troponin (6) Shock (7) Bilateral pleural effusion Assessment Presents with hypotension, sepsis, pancytopenia Has evidence of pneumonia Non-ST elevation [place] History of lymphoma and recurrent left pleural effusion LVH diastolic CHF moderate aortic stenosis and hypertension Secondary hyperparathyroidism hypocalcemia Vpn-vkxwdgv-eugdzedyi diabetes mellitus Hyperlipemia History of recurrent bladder cancer Protein calorie malnutrition Hyperuricemia Plan July 10: Dialyzed yesterday. Due for transfusion of blood and platelets today. Repeat dialysis tomorrow if in-house. Patient due for transfer to [facility]. Infected line is removed. Today's labs were reviewed. July 09: Discussed with Dr. Mcclain. Nurse Katya available. Patient is too unstable for transfer. He is on pressors. Toxic appearance. Acidotic. Hyperkalemic. Due for dialysis for electrolyte abnormalities today. Patient will be on BiPAP trial and if no improvement then to be intubated. Continue per ID. Continue pulmonary support. Prognosis poor. July 08: Patient was dialyzed yesterday. Patient hypoglycemic today. Labs reviewed. Has pancytopenia. Medication list reviewed. Hemodialysis again tomorrow. Dextrose 10% 50 cc an hour ordered. Continue to monitor blood sugar. Stop sliding scale insulin. July 07: Dialysis to correct electrolyte abnormalities and uremic symptoms Hem Onc , ID, pulmonary follow-up Monitor renal parameters, electrolytes, uric acid Monitor blood sugar while n.p.o. Per orders Subjective ROS Limited/Unobtainable: Yes Objective Objective Last 24 Hour Vital Signs Date Time Temp Pulse Resp B/P (MAP) Pulse Ox O2 Delivery O2 Flow Rate FiO2 07/10/20 14:00 143/65 07/10/20 14:00 97.2 100 30 143/65 (91) 100 07/10/20 13:45 100 33 137/63 (87) 100 07/10/20 13:30 100 29 126/58 (80) 100 07/10/20 13:15 105 29 131/60 (83) 100 07/10/20 13:00 103 23 115/60 (78) 100 07/10/20 13:00 115/60 07/10/20 12:30 120 35 152/81 (104) 100 07/10/20 12:30 152/81 07/10/20 12:30 120 35 152/81 (104) 100 07/10/20 12:15 132/90 07/10/20 12:15 124 24 132/90 (104) 100 07/10/20 12:00 Non-Rebreather 8.0 07/10/20 12:00 107/58 07/10/20 12:00 124 07/10/20 12:00 120 26 132/90 (104) 100 07/10/20 11:50 89/53 07/10/20 11:45 119 35 78/47 (57) 97 07/10/20 11:45 78/47 07/10/20 11:40 80/51 07/10/20 11:30 118 32 151/83 (105) 96 07/10/20 11:15 97.8 119 34 139/75 (96) 88 07/10/20 11:09 133/57 07/10/20 11:00 98.0 121 29 133/57 (82) 98 07/10/20 10:45 125 32 128/59 (82) 98 07/10/20 10:30 123 20 107/52 (70) 98 07/10/20 10:15 121 24 107/59 (75) 98 07/10/20 10:00 133 34 145/96 (112) 98 07/10/20 09:00 116 28 143/71 (95) 98 07/10/20 08:45 125 31 135/80 (98) 99 07/10/20 08:30 125 31 130/84 (99) 99 07/10/20 08:15 97 Venturi Mask 8.0 35 07/10/20 08:15 125 34 136/68 (90) 98 07/10/20 08:07 120 07/10/20 08:00 Venturi Mask 8.0 07/10/20 08:00 124 29 106/58 (74) 99 07/10/20 07:30 123 31 127/71 (89) 99 07/10/20 07:00 121 27 126/56 (79) 98 07/10/20 06:00 126 29 93/56 (68) 98 07/10/20 05:30 122 29 115/66 (82) 98 07/10/20 05:09 132/75 07/10/20 05:00 122 34 132/75 (94) 07/10/20 04:30 121 31 118/65 (82) 96 07/10/20 04:00 Non-Rebreather 4.0 07/10/20 04:00 122 07/10/20 04:00 98.2 121 42 128/71 (90) 96 07/10/20 03:45 120 34 115/57 (76) 97 07/10/20 03:30 122 46 115/60 (78) 96 07/10/20 03:15 122 38 126/60 (82) 100 07/10/20 03:00 116 29 117/78 (91) 100 07/10/20 02:00 120 32 113/72 (86) 100 07/10/20 01:30 120 30 126/67 (86) 100 07/10/20 01:00 119 29 117/65 (82) 07/10/20 01:00 Non-Rebreather 4.0 07/10/20 00:30 120 34 124/68 (86) 100 07/10/20 00:00 112 07/10/20 00:00 98.4 120 28 114/66 (82) 100 07/09/20 23:31 116 25 84/47 (59) 100 07/09/20 23:30 115 24 83/50 (61) 100 07/09/20 22:32 100/60 07/09/20 22:15 121 29 103/63 (76) 07/09/20 22:00 122 32 89/43 (58) 100 07/09/20 21:45 120 29 107/48 (67) 100 07/09/20 21:30 120 29 106/58 (74) 100 07/09/20 21:15 116 30 101/56 (71) 100 07/09/20 21:00 121 29 94/50 (65) 100 07/09/20 21:00 96 Venturi Mask 8.0 35 07/09/20 20:45 118 29 91/52 (65) 100 07/09/20 20:30 120 31 113/48 (69) 100 07/09/20 20:15 118 30 102/52 (69) 100 07/09/20 20:00 120 07/09/20 20:00 98.0 120 31 102/52 (69) 100 07/09/20 20:00 Simple Mask 5.0 07/09/20 20:00 123 31 133/96 (108) 100 07/09/20 19:30 124 31 100/61 (74) 100 07/09/20 19:15 120 33 118/55 (76) 100 07/09/20 19:00 128 31 100/57 (71) 100 07/09/20 18:45 131 36 134/56 (82) 100 07/09/20 18:44 131 36 134/56 (82) 100 07/09/20 18:36 138 07/09/20 18:30 127 27 121/68 (85) 07/09/20 18:15 132 28 120/65 (83) 07/09/20 18:00 135 32 128/66 (86) 100 07/09/20 17:58 140 07/09/20 17:00 4.0 07/09/20 17:00 133 31 107/54 (71) 91 07/09/20 16:00 Non-Rebreather 4.0 07/09/20 16:00 121 37 98/62 (74) 97 07/09/20 16:00 15.0 07/09/20 16:00 98.4 131 30 115/79 (91) 99 07/09/20 16:00 134 07/09/20 15:59 104/74 Intake and Output 07/09/20 07/10/20 19:00 07:00 Intake Total 1240.625 ml 1038.75 ml Output Total 5 ml 20 ml Balance 1235.625 ml 1018.75 ml Intake Oral 0 ml IV Total 1240.625 ml 1038.75 ml Output Urine Total 5 ml 20 ml # Bowel Movements 1 1 Current Medications Medications (Trade) Dose Ordered Sig/Maxi Route PRN Reason Start Time Stop Time Status Last Admin Dose Admin Acetaminophen (Tylenol) 500 mg Q4H PRN ORAL Mild Pain (1-3)/ Temp 100.4 07/07/20 07:00 08/06/20 06:59 Acyclovir (Zovirax) 200 mg TuThSa ORAL 07/07/20 09:00 08/06/20 08:59 Barium Sulfate (Varibar Honey) 250 ml NOW PRN MC RAD 07/08/20 09:00 07/11/20 08:49 Barium Sulfate (Varibar [place]) 240 ml NOW PRN MC RAD 07/08/20 09:00 07/11/20 08:49 Barium Sulfate (Varibar Pudding) 230 ml NOW PRN RAD 07/08/20 09:00 07/11/20 08:49 Barium Sulfate (Varibar Thin Liquid powder) 148 gm NOW PRN RAD 07/08/20 09:00 07/11/20 08:49 Calcium Acetate (Phoslo) 1,334 mg TIAC ORAL 07/07/20 11:30 10/05/20 11:29 Chlorhexidine Gluconate (Anne Marie-Hex 2%) 1 applic DAILY@2000 TOPIC 07/07/20 20:15 10/05/20 20:14 07/09/20 19:57 Dextrose 1,000 ml @ 50 mls/hr Q20H IV 07/08/20 14:00 08/07/20 13:59 07/10/20 05:10 Dextrose (Dextrose 50%) 25 ml Q30M PRN IV Hypoglycemia 07/08/20 08:15 10/06/20 08:14 07/08/20 11:13 Dextrose (Dextrose 50%) 50 ml Q30M PRN IV Hypoglycemia 07/08/20 08:15 10/06/20 08:14 Digoxin (Lanoxin) 0.125 mg 3XW IVP 07/11/20 09:00 10/09/20 08:59 Doxycycline Hyclate 100 mg/ Dextrose 100 ml @ 100 mls/hr Q12HR IV 07/09/20 21:00 07/16/20 20:59 07/10/20 09:02 Epoetin Emery (Epoetin Emery(ESRD on dialysis)) 6,000 unit SUBQ 07/09/20 21:00 10/07/20 20:59 07/09/20 21:25 Gabapentin (Neurontin) 100 mg QHS ORAL 07/07/20 21:00 08/06/20 20:59 Lidocaine (Lidoderm 5% PATCH) 1 patch DAILY TDERMAL 07/07/20 09:00 10/05/20 08:59 Meropenem 500 mg/ Sodium Chloride 50 ml @ 100 mls/hr Q24HRS IVPB 07/07/20 15:00 07/12/20 14:59 07/10/20 14:29 Mirtazapine (Remeron) 15 mg BEDTIME ORAL 07/07/20 21:00 10/05/20 20:59 Norepinephrine Bitartrate 8 mg/ Sodium Chloride 250 ml @ 0 mls/hr Q24H IV 07/10/20 10:00 07/13/20 09:59 07/10/20 11:09 Ondansetron HCl (Zofran) 4 mg Q4H PRN IVP Nausea & Vomiting 07/08/20 09:45 08/07/20 09:44 07/08/20 23:37 Oxycodone HCl (Roxicodone) 5 mg Q12H PRN ORAL pain (8-10) 07/07/20 07:00 07/14/20 06:59 Pantoprazole (Protonix) 40 mg EVERY 12 HOURS IVP 07/08/20 21:00 08/07/20 20:59 07/10/20 09:02 Sennosides (Senokot) 8.6 mg DAILY PRN ORAL Constipation 07/07/20 07:00 08/06/20 06:59 Vancomycin HCl ([facility] pharmacy to dose) 1 ea DAILY PRN MISC Per rx protocol 07/07/20 13:30 08/06/20 13:29 Vitamin B Complex (Vitamin B Complex) 1 tab DAILY ORAL 07/07/20 09:00 10/05/20 08:59 Current Medications Medications (Trade) Dose Ordered Sig/Maxi Route PRN Reason Start Time Stop Time Status Last Admin Dose Admin Acetaminophen (Tylenol) 500 mg Q4H PRN ORAL Mild Pain (1-3)/ Temp 100.4 07/07/20 07:00 08/06/20 06:59 Acyclovir (Zovirax) 200 mg TuThSa ORAL 07/07/20 09:00 08/06/20 08:59 Barium Sulfate (Varibar Honey) 250 ml NOW PRN MC RAD 07/08/20 09:00 07/11/20 08:49 Barium Sulfate (Varibar [place]) 240 ml NOW PRN MC RAD 07/08/20 09:00 07/11/20 08:49 Barium Sulfate (Varibar Pudding) 230 ml NOW PRN MC RAD 07/08/20 09:00 07/11/20 08:49 Barium Sulfate (Varibar Thin Liquid powder) 148 gm NOW PRN MC RAD 07/08/20 09:00 07/11/20 08:49 Calcium Acetate (Phoslo) 1,334 mg TIAC ORAL 07/07/20 11:30 10/05/20 11:29 Chlorhexidine Gluconate (Anne Marie-Hex 2%) 1 applic DAILY@2000 TOPIC 07/07/20 20:15 10/05/20 20:14 07/09/20 19:57 Dextrose 1,000 ml @ 50 mls/hr Q20H IV 07/08/20 14:00 08/07/20 13:59 07/10/20 05:10 Dextrose (Dextrose 50%) 25 ml Q30M PRN IV Hypoglycemia 07/08/20 08:15 10/06/20 08:14 07/08/20 11:13 Dextrose (Dextrose 50%) 50 ml Q30M PRN IV Hypoglycemia 07/08/20 08:15 10/06/20 08:14 Digoxin (Lanoxin) 0.125 mg 3XW IVP 07/11/20 09:00 10/09/20 08:59 Doxycycline Hyclate 100 mg/ Dextrose 100 ml @ 100 mls/hr Q12HR IV 07/09/20 21:00 07/16/20 20:59 07/10/20 09:02 Epoetin Emery (Epoetin Emery(ESRD on dialysis)) 6,000 unit THU-THU-THU SUBQ 07/09/20 21:00 10/07/20 20:59 07/09/20 21:25 Gabapentin (Neurontin) 100 mg QHS ORAL 07/07/20 21:00 08/06/20 20:59 Lidocaine (Lidoderm 5% PATCH) 1 patch DAILY TDERMAL 07/07/20 09:00 10/05/20 08:59 Meropenem 500 mg/ Sodium Chloride 50 ml @ 100 mls/hr Q24HRS IVPB 07/07/20 15:00 07/12/20 14:59 07/10/20 14:29 Mirtazapine (Remeron) 15 mg BEDTIME ORAL 07/07/20 21:00 10/05/20 20:59 Norepinephrine Bitartrate 8 mg/ Sodium Chloride 250 ml @ 0 mls/hr Q24H IV 07/10/20 10:00 07/13/20 09:59 07/10/20 11:09 Ondansetron HCl (Zofran) 4 mg Q4H PRN IVP Nausea & Vomiting 07/08/20 09:45 08/07/20 09:44 07/08/20 23:37 Oxycodone HCl (Roxicodone) 5 mg Q12H PRN ORAL pain (8-10) 07/07/20 07:00 07/14/20 06:59 Pantoprazole (Protonix) 40 mg EVERY 12 HOURS IVP 07/08/20 21:00 08/07/20 20:59 07/10/20 09:02 Sennosides (Senokot) 8.6 mg DAILY PRN ORAL Constipation 07/07/20 07:00 08/06/20 06:59 Vancomycin HCl ([facility] pharmacy to dose) 1 ea DAILY PRN MISC Per rx protocol 07/07/20 13:30 08/06/20 13:29 Vitamin B Complex (Vitamin B Complex) 1 tab DAILY ORAL 07/07/20 09:00 10/05/20 08:59 Laboratory Tests 07/09/20 16:38: Arterial Blood pH 7.364, Arterial Blood Partial Pressure CO2 45.3H, Arterial Blood Partial Pressure O2 252.2H, Arterial Blood HCO3 25.2, Arterial Blood Oxygen Saturation 99.0, Arterial Blood Base Excess -0.2, Javier Test Positive 07/09/20 20:00: Sodium Level 139, Potassium Level 4.4, Chloride Level 99, Carbon Dioxide Level 25, Anion Gap 15, Blood Urea Nitrogen 61H, Creatinine 4.2H, Estimat Glomerular Filtration Rate 13.7, Glucose Level 179H, Calcium Level 6.2L, Random Vancomycin Level 15.5 07/10/20 04:00: Sodium Level 137, Potassium Level 4.3, Chloride Level 99, Carbon Dioxide Level 27, Anion Gap 12, Blood Urea Nitrogen 68H, Creatinine 4.5H, Estimat Glomerular Filtration Rate 12.6, Glucose Level 178H, Calcium Level 6.6L, White Blood Count 7.8#, Red Blood Count 2.58L, Hemoglobin 6.7*L, Hematocrit 20.2L, Mean Corpuscular Volume 78L, Mean Corpuscular Hemoglobin 25.9L, Mean Corpuscular Hemoglobin Concent 33.2, Red Cell Distribution Width 17.9H, Platelet Count 12L, Mean Platelet Volume 12.8H, Neutrophils (%) (Auto) , Lymphocytes (%) (Auto) , Monocytes (%) (Auto) , Eosinophils (%) (Auto) , Basophils (%) (Auto) , Differential Total Cells Counted 100, Neutrophils % (Manual) 60, Lymphocytes % ( Manual) 2L, Monocytes % (Manual) 6, Eosinophils % (Manual) 0, Basophils % (Manual) 0, Band Neutrophils 32H, Platelet Estimate DecreasedL, Platelet Morphology Normal, Anisocytosis 1+, Lactic Acid Level 2.50H, Uric Acid 3.5, Phosphorus Level 5.8H, Magnesium Level 2.2, Total Bilirubin 1.4H, Direct Bilirubin 1.1H, Gamma Glutamyl Transpeptidase 167H, Aspartate Amino Transf (AST/SGOT) 71H, Alanine Aminotransferase (ALT/SGPT) 186H, Alkaline Phosphatase 337H, Troponin I 0.268H, C-Reactive Protein, Quantitative 36.6H, Pro-B-Type Natriuretic Peptide > [id number], Total Protein 5.5L, Albumin 1.8L, Globulin 3.7, Albumin/Globulin Ratio 0.5L, Digoxin Level 0.3L 07/10/20 08:03: Arterial Blood pH 7.359, Arterial Blood Partial Pressure CO2 46.0H, Arterial Blood Partial Pressure O2 78.0, Arterial Blood HCO3 25.3, Arterial Blood Oxygen Saturation 93.9L, Arterial Blood Base Excess -0.2, Javier Test Positive 07/10/20 10:15: Lactic Acid Level 2.20H 07/10/20 11:08: Arterial Blood pH 7.316L, Arterial Blood Partial Pressure CO2 50.6H, Arterial Blood Partial Pressure O2 72.4L, Arterial Blood HCO3 25.3, Arterial Blood Oxygen Saturation 92.5L, Arterial Blood Base Excess -0.9, Javier Test Positive Height (Feet): 5 Height (Inches): 6.00 Weight (Pounds): 140 General Appearance: mild distress EENT: other - On nonrebreather mask Cardiovascular: tachycardia Respiratory/Chest: decreased breath sounds Abdomen: distended [place] Jiang MD Jul 10, 2020 15:16
--- NOTE | 2020-07-10 15:45 | NUR ---
NURSE NOTES: 1 plateletpheresis transfused. No adverse transfusion reaction observed. Vital signs stable, blood pressure 149/67, heart rate of 105, Temp of 99.0 axillary.
--- NOTE | 2020-07-10 16:06 | Infectious Diseases Prog Note ---
Assessment/Plan Assessment/Plan ASSESSMENT AND PLAN: 1. klebsiella/gram + bacteremia/line infection, sepsis, shock, fevers, neutropenia, ? cap, ? aspiration pna/hcap, hypoxia, covid negative x 2 - vancomycin, meropenem, doxycycline - central line removed today, cath tip cultured - monitor labs, cultures and chest x-ray - icu care - d/w RN - communicated with primary care team and consultants 2. Pancytopenia, anemia, leukopenia, and thrombocytopenia. 3. Hematology-Oncology followup. 4. End-stage renal disease, on hemodialysis. Nephrology followup. 5. Diabetes. Blood sugar treatment per primary team. 6. Hypertension. The patient's blood pressure is low. 7. CHF. 8. Dyslipidemia, hyperlipidemia. 9. Aortic stenosis. 10. History of bladder cancer. 11. History of T-cell lymphoma. 12. History of using chemo. 13. Continue treatment per primary consultants. 14. Orders were noted and entered. 15. Allergies to latex, natural rubber, mitomycin 16. Social history is negative. 17. Family history is noncontributory. 18. MAR was noted. 19. Case was discussed with RN. 20. Case was discussed with Dr. Mcclain. 21. ICU care. 22. Critical condition. Subjective Constitutional: Reports: other - on pressors, + pressors ; Denies: fever HEENT: Reports: congestion Respiratory: Reports: shortness of breath Cardiovascular: Denies: chest pain Gastrointestinal/Abdominal: Denies: nausea, vomiting, diarrhea Genitourinary: Reports: other Neurologic: Reports: weakness Psychiatric: Reports: other - N Skin: Denies: rash Endocrine: Reports: other - NA Hematologic: Denies: bleeding Musculoskeletal: Reports: other - NA Allergies: Coded Allergies: LATEX, NATURAL RUBBER (Verified Allergy, Unknown, 07/07/20) MITOMYCIN (Verified Allergy, Unknown, 07/07/20) Uncoded Allergies: MYTOMYCIN (Allergy, Unknown, 07/07/20) Objective Last 24 Hour Vital Signs Date Time Temp Pulse Resp B/P (MAP) Pulse Ox O2 Delivery O2 Flow Rate FiO2 07/10/20 15:45 101 22 149/67 (94) 100 07/10/20 15:30 101 22 157/61 (93) 100 07/10/20 15:00 105 26 154/79 (104) 100 07/10/20 14:00 143/65 07/10/20 14:00 97.2 100 30 143/65 (91) 100 07/10/20 13:45 100 33 137/63 (87) 100 07/10/20 13:30 100 29 126/58 (80) 100 07/10/20 13:15 105 29 131/60 (83) 100 07/10/20 13:00 103 23 115/60 (78) 100 07/10/20 13:00 115/60 07/10/20 12:30 120 35 152/81 (104) 100 07/10/20 12:30 152/81 07/10/20 12:30 120 35 152/81 (104) 100 07/10/20 12:15 132/90 07/10/20 12:15 124 24 132/90 (104) 100 07/10/20 12:00 Non-Rebreather 8.0 07/10/20 12:00 107/58 07/10/20 12:00 124 07/10/20 12:00 120 26 132/90 (104) 100 07/10/20 11:50 89/53 07/10/20 11:45 119 35 78/47 (57) 97 07/10/20 11:45 78/47 07/10/20 11:40 80/51 07/10/20 11:30 118 32 151/83 (105) 96 07/10/20 11:15 97.8 119 34 139/75 (96) 88 07/10/20 11:09 133/57 07/10/20 11:00 98.0 121 29 133/57 (82) 98 07/10/20 10:45 125 32 128/59 (82) 98 07/10/20 10:30 123 20 107/52 (70) 98 07/10/20 10:15 121 24 107/59 (75) 98 07/10/20 10:00 133 34 145/96 (112) 98 07/10/20 09:00 116 28 143/71 (95) 98 07/10/20 08:45 125 31 135/80 (98) 99 07/10/20 08:30 125 31 130/84 (99) 99 07/10/20 08:15 97 Venturi Mask 8.0 35 07/10/20 08:15 125 34 136/68 (90) 98 07/10/20 08:07 120 07/10/20 08:00 Venturi Mask 8.0 07/10/20 08:00 124 29 106/58 (74) 99 07/10/20 07:30 123 31 127/71 (89) 99 07/10/20 07:00 121 27 126/56 (79) 98 07/10/20 06:00 126 29 93/56 (68) 98 07/10/20 05:30 122 29 115/66 (82) 98 07/10/20 05:09 132/75 07/10/20 05:00 122 34 132/75 (94) 07/10/20 04:30 121 31 118/65 (82) 96 07/10/20 04:00 Non-Rebreather 4.0 07/10/20 04:00 122 07/10/20 04:00 98.2 121 42 128/71 (90) 96 07/10/20 03:45 120 34 115/57 (76) 97 07/10/20 03:30 122 46 115/60 (78) 96 07/10/20 03:15 122 38 126/60 (82) 100 07/10/20 03:00 116 29 117/78 (91) 100 07/10/20 02:00 120 32 113/72 (86) 100 07/10/20 01:30 120 30 126/67 (86) 100 07/10/20 01:00 119 29 117/65 (82) 07/10/20 01:00 Non-Rebreather 4.0 07/10/20 00:30 120 34 124/68 (86) 100 07/10/20 00:00 112 07/10/20 00:00 98.4 120 28 114/66 (82) 100 07/09/20 23:31 116 25 84/47 (59) 100 07/09/20 23:30 115 24 83/50 (61) 100 07/09/20 22:32 100/60 07/09/20 22:15 121 29 103/63 (76) 07/09/20 22:00 122 32 89/43 (58) 100 07/09/20 21:45 120 29 107/48 (67) 100 07/09/20 21:30 120 29 106/58 (74) 100 07/09/20 21:15 116 30 101/56 (71) 100 07/09/20 21:00 121 29 94/50 (65) 100 07/09/20 21:00 96 Venturi Mask 8.0 35 07/09/20 20:45 118 29 91/52 (65) 100 07/09/20 20:30 120 31 113/48 (69) 100 07/09/20 20:15 118 30 102/52 (69) 100 07/09/20 20:00 120 07/09/20 20:00 98.0 120 31 102/52 (69) 100 07/09/20 20:00 Simple Mask 5.0 07/09/20 20:00 123 31 133/96 (108) 100 07/09/20 19:30 124 31 100/61 (74) 100 07/09/20 19:15 120 33 118/55 (76) 100 07/09/20 19:00 128 31 100/57 (71) 100 07/09/20 18:45 131 36 134/56 (82) 100 07/09/20 18:44 131 36 134/56 (82) 100 07/09/20 18:36 138 07/09/20 18:30 127 27 121/68 (85) 07/09/20 18:15 132 28 120/65 (83) 07/09/20 18:00 135 32 128/66 (86) 100 07/09/20 17:58 140 07/09/20 17:00 4.0 07/09/20 17:00 133 31 107/54 (71) 91 07/09/20 16:00 Non-Rebreather 4.0 07/09/20 16:00 121 37 98/62 (74) 97 07/09/20 16:00 15.0 07/09/20 16:00 98.4 131 30 115/79 (91) 99 07/09/20 16:00 134 07/09/20 15:59 104/74 Height (Feet): 5 Height (Inches): 6.00 Weight (Pounds): 140 General Appearance: other - sob, + breathing mask HEENT: normocephalic, atraumatic, anicteric Respiratory/Chest: crackles/rales, rhonchi - bilaterally Cardiovascular: normal rate, regular rhythm, no gallop/murmur, no JVD Abdomen: normal bowel sounds, soft, non tender, no organomegaly, non distended Genitourinary: other - + bal Extremities: no cyanosis Skin: no rash Neurologic/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 Bilateral left greater than right infiltrates versus pulmonary edema is unchanged. There is suggestion of increased left pleural effusion Impression: Increasing left pleural effusion. Other stable findings as described, over one day Microbiology Date/Time Source Procedure Growth Status 07/09/20 09:30 Nasopharynx SARS-CoV-2 RdRp Gene Assay - Final Complete 07/09/20 03:30 Blood Blood Culture - Preliminary Resulted 07/07/20 00:15 Rectum - Final NO CARBAPENEM-RESISTANT ENTEROBACTERI... Complete Microbiology Date/Time Source Procedure Growth Status 07/09/20 09:30 Nasopharynx SARS-CoV-2 RdRp Gene Assay - Final Complete 07/09/20 09:00 Nasopharynx Coronavirus COVID-19 PCR ([facility]) - Final Complete 07/09/20 03:30 Blood Blood Culture - Preliminary Resulted Laboratory Tests Test 07/09/20 16:38 07/09/20 20:00 07/10/20 04:00 07/10/20 08:03 Arterial Blood pH 7.364 (7.350-7.450) 7.359 (7.350-7.450) Arterial Blood Partial Pressure CO2 45.3 mmHg (35.0-45.0) H 46.0 mmHg (35.0-45.0) H Arterial Blood Partial Pressure O2 252.2 mmHg (75.0-100.0) H 78.0 mmHg (75.0-100.0) Arterial Blood HCO3 25.2 mmol/L (22.0-26.0) 25.3 mmol/L (22.0-26.0) Arterial Blood Oxygen Saturation 99.0 % (95-100) 93.9 % (95-100) L Arterial Blood Base Excess -0.2 (-2-2) -0.2 (-2-2) Javier Test Positive Positive Sodium Level 139 MMOL/L (136-145) 137 MMOL/L (136-145) Potassium Level 4.4 MMOL/L (3.5-5.1) 4.3 MMOL/L (3.5-5.1) Chloride Level 99 MMOL/L (98-107) 99 MMOL/L (98-107) Carbon Dioxide Level 25 MMOL/L (21-32) 27 MMOL/L (21-32) Anion Gap 15 mmol/L (5-15) 12 mmol/L (5-15) Blood Urea Nitrogen 61 mg/dL (7-18) H 68 mg/dL (7-18) H Creatinine 4.2 MG/DL (0.55-1.30) H 4.5 MG/DL (0.55-1.30) H Estimat Glomerular Filtration Rate 13.7 mL/min (>60) 12.6 mL/min (>60) Glucose Level 179 MG/DL (74-106) H 178 MG/DL (74-106) H Calcium Level 6.2 MG/DL (8.5-10.1) L 6.6 MG/DL (8.5-10.1) L Random Vancomycin Level 15.5 ug/mL White Blood Count 7.8 K/UL (4.8-10.8) # Red Blood Count 2.58 M/UL (4.70-6.10) L Hemoglobin 6.7 G/DL (14.2-18.0) *L Hematocrit 20.2 % (42.0-52.0) L Mean Corpuscular Volume 78 FL (80-99) L Mean Corpuscular Hemoglobin 25.9 PG (27.0-31.0) L Mean Corpuscular Hemoglobin Concent 33.2 G/DL (32.0-36.0) Red Cell Distribution Width 17.9 % (11.6-14.8) H Platelet Count 12 K/UL (150-450) L Mean Platelet Volume 12.8 FL (6.5-10.1) H Neutrophils (%) (Auto) % (45.0-75.0) Lymphocytes (%) (Auto) % (20.0-45.0) Monocytes (%) (Auto) % (1.0-10.0) Eosinophils (%) (Auto) % (0.0-3.0) Basophils (%) (Auto) % (0.0-2.0) Differential Total Cells Counted 100 Neutrophils % (Manual) 60 % (45-75) Lymphocytes % (Manual) 2 % (20-45) L Monocytes % (Manual) 6 % (1-10) Eosinophils % (Manual) 0 % (0-3) Basophils % (Manual) 0 % (0-2) Band Neutrophils 32 % (0-8) H Platelet Estimate Decreased L Platelet Morphology Normal Anisocytosis 1+ Lactic Acid Level 2.50 mmol/L (0.4-2.0) H Uric Acid 3.5 MG/DL (2.6-7.2) Phosphorus Level 5.8 MG/DL (2.5-4.9) H Magnesium Level 2.2 MG/DL (1.8-2.4) Total Bilirubin 1.4 MG/DL (0.2-1.0) H Direct Bilirubin 1.1 MG/DL (0.0-0.3) H Gamma Glutamyl Transpeptidase 167 U/L (5-85) H Aspartate Amino Transf (AST/SGOT) 71 U/L (15-37) H Alanine Aminotransferase (ALT/SGPT) 186 U/L (12-78) H Alkaline Phosphatase 337 U/L (46-116) H Troponin I 0.268 ng/mL (0.000-0.056) C-Reactive Protein, Quantitative 36.6 mg/dL (0.00-0.90) H Pro-B-Type Natriuretic Peptide > 50677 pg/mL (0-125) H Total Protein 5.5 G/DL (6.4-8.2) L Albumin 1.8 G/DL (3.4-5.0) L Globulin 3.7 g/dL Albumin/Globulin Ratio 0.5 (1.0-2.7) L Digoxin Level 0.3 NG/ML (0.5-2.0) L Test 07/10/20 10:15 07/10/20 11:08 Lactic Acid Level 2.20 mmol/L (0.4-2.0) H Arterial Blood pH 7.316 (7.350-7.450) Arterial Blood Partial Pressure CO2 50.6 mmHg (35.0-45.0) H Arterial Blood Partial Pressure O2 72.4 mmHg (75.0-100.0) L Arterial Blood HCO3 25.3 mmol/L (22.0-26.0) Arterial Blood Oxygen Saturation 92.5 % (95-100) L Arterial Blood Base Excess -0.9 (-2-2) Javier Test Positive Current Medications Medications (Trade) Dose Ordered Sig/Maxi Route PRN Reason Start Time Stop Time Status Last Admin Dose Admin Acetaminophen (Tylenol) 500 mg Q4H PRN ORAL Mild Pain (1-3)/ Temp 100.4 07/07/20 07:00 08/06/20 06:59 Acyclovir (Zovirax) 200 mg TuThSa ORAL 07/07/20 09:00 08/06/20 08:59 Barium Sulfate (Varibar Honey) 250 ml NOW PRN MC RAD 07/08/20 09:00 07/11/20 08:49 Barium Sulfate (Varibar [place]) 240 ml NOW PRN MC RAD 07/08/20 09:00 07/11/20 08:49 Barium Sulfate (Varibar Pudding) 230 ml NOW PRN RAD 07/08/20 09:00 07/11/20 08:49 Barium Sulfate (Varibar Thin Liquid powder) 148 gm NOW PRN MC RAD 07/08/20 09:00 07/11/20 08:49 Calcium Acetate (Phoslo) 1,334 mg TIAC ORAL 07/07/20 11:30 10/05/20 11:29 Chlorhexidine Gluconate (Anne Marie-Hex 2%) 1 applic DAILY@2000 TOPIC 07/07/20 20:15 10/05/20 20:14 07/09/20 19:57 Dextrose 1,000 ml @ 50 mls/hr Q20H IV 07/08/20 14:00 08/07/20 13:59 07/10/20 05:10 Dextrose (Dextrose 50%) 25 ml Q30M PRN IV Hypoglycemia 07/08/20 08:15 10/06/20 08:14 07/08/20 11:13 Dextrose (Dextrose 50%) 50 ml Q30M PRN IV Hypoglycemia 07/08/20 08:15 10/06/20 08:14 Digoxin (Lanoxin) 0.125 mg 3XW IVP 07/11/20 09:00 10/09/20 08:59 Doxycycline Hyclate 100 mg/ Dextrose 100 ml @ 100 mls/hr Q12HR IV 07/09/20 21:00 07/16/20 20:59 07/10/20 09:02 Epoetin Emery (Epoetin Emery(ESRD on dialysis)) 6,000 unit THU-THU-THU SUBQ 07/09/20 21:00 10/07/20 20:59 07/09/20 21:25 Gabapentin (Neurontin) 100 mg QHS ORAL 07/07/20 21:00 08/06/20 20:59 Lidocaine (Lidoderm 5% PATCH) 1 patch DAILY TDERMAL 07/07/20 09:00 10/05/20 08:59 Meropenem 500 mg/ Sodium Chloride 50 ml @ 100 mls/hr Q24HRS IVPB 07/07/20 15:00 07/12/20 14:59 07/10/20 14:29 Mirtazapine (Remeron) 15 mg BEDTIME ORAL 07/07/20 21:00 10/05/20 20:59 Norepinephrine Bitartrate 8 mg/ Sodium Chloride 250 ml @ 0 mls/hr Q24H IV 07/10/20 10:00 07/13/20 09:59 07/10/20 11:09 Ondansetron HCl (Zofran) 4 mg Q4H PRN IVP Nausea & Vomiting 07/08/20 09:45 08/07/20 09:44 07/08/20 23:37 Oxycodone HCl (Roxicodone) 5 mg Q12H PRN ORAL pain (8-10) 07/07/20 07:00 07/14/20 06:59 Pantoprazole (Protonix) 40 mg EVERY 12 HOURS IVP 07/08/20 21:00 08/07/20 20:59 07/10/20 09:02 Sennosides (Senokot) 8.6 mg DAILY PRN ORAL Constipation 07/07/20 07:00 08/06/20 06:59 Vancomycin HCl (Vanco pharmacy to dose) 1 ea DAILY PRN MISC Per rx protocol 07/07/20 13:30 08/06/20 13:29 Vitamin B Complex (Vitamin B Complex) 1 tab DAILY ORAL 07/07/20 09:00 10/05/20 08:59 Leyda Jensen MD Jul 10, 2020 16:06
--- NOTE | 2020-07-10 16:07 | NUR ---
INTER-FACILITY TRANSFER: Patient transferred to [facility] room 7F 22, per Dr. Mcclain. Report given to ANKUSH Silva of [facility] ICU and [facility] ambulance staff/ Neftaly Palomino RN. Patient transferred with no valuables and no medications. No belongings verified upon transfer. Family/Kristen Mcintyre notified of transfer. Patient remains on non rebreather mask, no respiratory distress. On continuous levophed drip at 12 mcg/hour and D10 IVF running at 50ml/hour. Latest Vital signs stable.
[2020-07-10] MEDS ORDERED: NS 275ml ONE ×2 (16:09)
[2020-07-10] MEDS ORDERED: Tubing Blood Filter IV ONE (16:09)
--- NOTE | 2020-07-10 16:22 | Cardiology Report ---
APPROVED REPORT EKG Measurement Heart [id number] <Conclusion> Atrial fibrillation with rapid ventricular response Right bundle branch block Abnormal ECG
[2020-07-11] MEDS ORDERED: Digoxin 0.5mg/2ml Inj IVP SCH (09:00)
--- NOTE | 2020-07-12 10:57 | Discharge Summary ---
Discharge Summary Discharge Summary _ DATE OF ADMISSION: 07/07/2020 DATE OF DISCHARGE: 07/10/2020 DISCHARGED BY: Dr. Mcclain REASON FOR ADMISSION: 80 years old male, resident of [facility], with PMH of ESRD, on HD, DM type 2, HTN, CHF , hyperlipidemia , severe aortic stenosis, recurrent left pleural effusion, recently loculated, status post VATS with decortication; bladder cancer, latent TB, T cell lymphoma, recently diagnosed, s/p 1 session of chemotherapy, was sent to ED for evaluation due to fever. Upon evaluation patient was febrile , tachycardic, pulse oximetry was stable on room air Laboratory work-up revealed severe pancytopenia with WBC 0.1 , hemoglobin 7.5, platelet counts 32 . ABG on room air revealed hypoxia with O2 sat 88 % , pH was 7.40, pCO2 31.8. Sodium 135 , potassium 5.3. Magnesium 1.7. BUN 102, creatinine 7.3, consistent with known history of ESRD. Rapid COVID 19 was negative. Urinalysis revealed no evidence of urinary tract infection. Troponin 0.082 , pro BNP [id number]. EKG revealed sinus tachycardia with incomplete right bundle branch block, no acute ischemic changes . Chest x-ray revealed left infiltrate, possible effusion, In emergency department septic work-up initiated , patient pancultured , received fluid bolus, empiric antibiotics and ASA. Patient noted to be hypotensive and subsequently transferred to ICU for further management for possible pressor. CONSULTANTS: mine utility operator Dr. Platt ID specialist Dr. Jensen block stacker Dr. Jiang textile dyer/oncologist Dr. Monroe [facility] COURSE: Patient admitted to ICU. Patient was continued on broad-spectrum antibiotics. Hemodynamic status was clsoely monitored. Blood pressure initially was attempted to be controlled with fluid bolus. Subsequently patient was started on Levophed, titrated to keep mean arterial blood pressure above 65. Patient also developed A. fib with rapid ventricular response , given hypotension, received Digoxin x 2. Plan was to start on amiodarone drip as per mine utility operator,if no improvement in heart rate. Repeated COVID-19 by PCR and rapid were both negative. Blood culture revealed gram-negative rods and later Klebsiella pneumonia, most likely due to infected line, present on admission. Patient undergone placement of another line by interventional radiologist on 10/12 . Old infected line was discontinued by general surgeon. At the time of this dictation , catheter tip culture preliminary negative. Repeated blood culture on 1012 showed 1 out of 4 Staph epidermidis. Antibiotic regimen was optimized as per ID recommendation. Serial troponin were minimally elevated. Elevated troponin was most likely due to demand ischemia secondary to sepsis and severe pancytopenia. Supplemental oxygen provided and titrated to keep pulse oximetry above 92%. Venous Duplex BLE revealed no evidence of acute DVT. Dialysis provided as per block stacker recommendation with close monitoring of volumes, renal paramerts and lytes. Patient initially received Granix x2 along with 1 unit of plateletpheresis and 2 units of packed red blood cells. Prior to discharge WBC 7.8, hemoglobin 6.7 , platelet count 12. Patient apparently had 1 cycle of chemotherapy, but textile dyer recommended to continue with chemotherapy as patient appeared to have aggressive lymphoma. Transfer to [facility]/higher level of care for chemotherapy was arranged. Patient was transferred via [facility]. FINAL DIAGNOSES: Sepsis with shock Klebsiella bacteremia, likely due to line infection ( line was present on admission) Pneumonia Neutropenic fever - resolved Acute toxic metabolic encephalopathy Atrial fibrillation with rapid ventricular response -improved Elevated troponin , likely due to demand secondary to severe pancytopenia and sepsis Severe pancytopenia T-cell lymphoma, status post 1 session of chemo End-stage renal disease , on hemodialysis Diabetes mellitus type 2 with epsidoe of hypoglycemia History of hypertension Recurrent left pleural effusion, recently loculated, status post VATS with decortication CHF with EF 40 to 45% Severe pulmonary hypertension Severe aortic stenosis Hyperlipidemia Bladder cancer Latent TB DISCHARGE MEDICATIONS: List of medication was sent to accepting facility DISCHARGE INSTRUCTIONS: Patient was transferred to [facility] for higher level of care via [facility] ambulance. Giovanna Minor NP Jul 12, 2020 10:57
--- NOTE | 2020-07-18 21:06 | Cardiology Report ---
APPROVED REPORT EKG Measurement Heart [id number] <Conclusion> Sinus tachycardia Right bundle branch block [id number] pattern with RV strain ST & T wave abnormality, consider anterior ischemia Abnormal ECG
--- NOTE | 2020-07-20 07:07 | Coder Physician Query ---
PLEASE COMPLETE THE QUESTION BEFORE SIGNING Dear Dr.Dan Mcclain Date:07/20/20 Plastic Cablemaking Machine Operator: Bambi, KAY Exercise your independent professional judgment when responding to the query. Questions asked do not imply a particular answer is desired or expected. We greatly appreciate your clarification on this issue. CLINICAL DOCUMENTATION STATES: Sepsis with shock Klebsiella bacteremia, likely due to line infection - vancomycin, meropenem, doxycycline - central line removed today, cath tip culture ( negative on 07/10) Blood culture: Positive klebsiella pneumoniae, staph epidermidis Please respond to the following question: Is there a causal relationship between the LINE INFECTION and SEPSIS ? PHYSICIAN RESPONSE: [x] YES [] NO Please also document in your Progress Notes and/or Discharge summary and indicate if the condition was present on admission. Viet Martinez
== END 2020-07-10 16:10 | disposition short-term general hospital (02) | DRG 280 ==
LOC: EDBD 00:04 → EMR 00:30 → EDBEDREQ 00:40 → 2E 00:55 → EDBEDREQ 02:46 → ICU 07:17
PROC: 30233N1 Transfusion of Nonautologous Red Blood Cells into Peripheral Vein, Percutaneous Approach (ICD-10-PCS; principal; 2020-07-07)
PROC: 5A1D70Z Performance of Urinary Filtration, Intermittent, Less than 6 Hours Per Day (ICD-10-PCS; 2020-07-07)
PROC: 30233R1 Transfusion of Nonautologous Platelets into Peripheral Vein, Percutaneous Approach (ICD-10-PCS; 2020-07-08)
PROC: 05HN33Z Insertion of Infusion Device into Left Internal Jugular Vein, Percutaneous Approach (ICD-10-PCS; 2020-07-09)
DX: T80.211A Bloodstream infection due to central venous catheter, initial encounter (principal); I21.4 Non-ST elevation (NSTEMI) myocardial infarction; A41.89 Other specified sepsis; R65.21 Severe sepsis with septic shock; J18.9 Pneumonia, unspecified organism; G92 Toxic encephalopathy; N18.6 End stage renal disease; I13.2 Hypertensive heart and chronic kidney disease with heart failure and with stage 5 chronic kidney disease, or end stage renal disease; I50.30 Unspecified diastolic (congestive) heart failure; D61.818 Other pancytopenia; E46 Unspecified protein-calorie malnutrition; C85.80 Other specified types of non-Hodgkin lymphoma, unspecified site; T80.218A Other infection due to central venous catheter, initial encounter; E11.22 Type 2 diabetes mellitus with diabetic chronic kidney disease; Z99.2 Dependence on renal dialysis; Z88.1 Allergy status to other antibiotic agents; Z91.040 Latex allergy status; D70.9 Neutropenia, unspecified; R50.81 Fever presenting with conditions classified elsewhere; I35.0 Nonrheumatic aortic (valve) stenosis; E78.5 Hyperlipidemia, unspecified; I45.10 Unspecified right bundle-branch block; B96.1 Klebsiella pneumoniae [K. pneumoniae] as the cause of diseases classified elsewhere; B96.3 Hemophilus influenzae [H. influenzae] as the cause of diseases classified elsewhere; I48.91 Unspecified atrial fibrillation; I27.20 Pulmonary hypertension, unspecified; Z79.82 Long term (current) use of aspirin
CPT/HCPCS: 36415; 36569; 71045; 76705; 80048; 80053; 80061; 80162; 80202; 81003; 82140; 82248; 82270; 82550; 82607; 82728; 82746; 82803; 82962; 82977; 83036; 83540; 83550; 83605; 83690; 83735; 83880; 84100; 84443; 84484; 84550; 85007; 85025; 85610; 85730; 86140; 86703; 86706; 86850; 86900; 86901; 86920; 87040; 87070; 87081; 87181; 93005; 93306; 93970; 96365; 96368; 99291; J1815; J2405; J3490; J7030; U0002